=== PATIENT | female | born 1970 | race Caucasian/White ===

== ENCOUNTER 2018-02-10 00:30 | Observation (INO) | payer MEDICAID, SELFPAY ==
[2018-02-10] VITALS (12 sets, daily range): BP systolic 105–137; BP diastolic 58–91; PULSE 73–90; RESP 16–20; TEMP 36.1–37; O2SAT 94–99
--- NOTE | 2018-02-10 00:52 | ED.GENADUL_ITS ---
Discharge Plan Disposition Patient Disposition: [facility] INPATIENT Condition: Good Discharge Details Chief Complaint: Chest/Rib Clinical Impression: Abnormal EKG, Right-sided chest wall pain Primary Care Provider: Benito Mcknight ED Provider: Jerome Jimenez [place] Meds and New Rx's Prescriptions: No Action levonorgestrel [Mirena] 1 EACH intrauterine device 1 ea Intrauterine DIRECTED RF: 0 ibuprofen 200 MG capsule 800 mg PO Q4H PRN RF: 0 gabapentin 300 MG capsule 600 mg PO TID RF: 0 gabapentin 300 MG capsule 300 mg PO TID Qty: 90 RF: 3 venlafaxine [Effexor XR] 75 MG capsule,extended release 24hr 75 mg PO DAILY RF: 0 Medical Decision Making Patient with right sided lateral rib pain with increase cough and feeling of shortness of breath. She has Mirena so cannot PERC out. Was going to get d- dimer and chest x-ray as pain is extremely atypical for cardiac disease. However, EKG was obtained since female and smoker and EKG is abnormal. She has biphasic T waves present with depression at take off of ST segment. May be related to electrolytes as patient is drinker. Doubt ischemia but needs troponin and work up. Will also get CTA chest because of EKG changes but doubt PE. Patient is given aspirin. Labs are for the most part unremarkable. Electrolytes are good, sodium a little low as well as bicarb and a small anion gap. Probably related to alcohol ketoacidosis. Potassium and magnesium is normal. CBC is normal. LFTs good. Troponin is negative. Alcohol is 250. CTA of chest is negative except for evidence of PE. There is reflux of contrast into the inferior vena cava suggesting right heart strain/pulmonary hypertension. Some evidence of emphysema changes as well. Work up so far unremarkable but with EKG changes needs admission for serial troponin. If negative can consider discharge and follow up next week for ECHO and stress testing. Case discussed with hospitalist, Dr. Mcknight, who agrees with observation admit. Lab Data Lab results reviewed: Yes I reviewed the patient's lab results. ECG Data Attestation: I personally reviewed and interpreted this ECG (s) as follows: Prior ECG tracings: available for review Interpretation: NSR at 77 with normal interval and axis but with biphasic T waves anterior-lateral with initial ST depression. V2 with one box of ST elevation. This is different from EKG done a year ago which was normal. Repeat EKG to confirm tonight was same as initial. HPI General Mode of arrival: EMS . Date/Time Provider Initiated Documentation: 02/10/18 00:49 . Limitations to Documentation: no limitations . Information obtained by: patient . HPI Narrative: Patient presents to ED with complaint of right rib pain for the last week. No known trauma. No rash. She has had increase cough and increase SOB. Pain is worse with breathing and with lying down. She has no fever. She has no abdominal pain or GI symptoms. She does smoke cigarettes and drinks alcohol daily. She has no urinary symptoms. She has no history of DVT/PE and has no leg swelling. Has chronic neuropathic leg/foot pain which is unchanged. She thinks she might have pneumonia. Related Data Home Medications Medication Instructions Recorded Confirmed levonorgestrel [Mirena] 1 ea INTRAUTERINE DIRECTED 10/01/12 02/10/18 venlafaxine [Effexor Xr] 75 mg PO DAILY 01/30/17 02/10/18 ibuprofen 800 mg PO Q4H PRN tab-cap 06/22/17 02/10/18 gabapentin 300 mg PO TID #90 tab-cap 10/02/17 02/10/18 gabapentin 600 mg PO TID tab-cap 10/02/17 02/10/18 Previous Rx's Medication Instructions Recorded gabapentin 300 mg PO TID #90 tab-cap 10/02/17 Allergies Allergy/AdvReac Type Severity Reaction Status Date / Time No Known Allergies Allergy Unverified 02/10/18 00:41 General Stated Complaint: Chest/Rib ANGELITA: 3 Review of Systems Constitutional Denies chills, Denies fever(s), Denies headache(s) and Denies weakness Eyes Denies eye discharge and Denies irritation ENT Denies otalgia, Denies headache(s), Denies neck pain and Denies sore throat Cardiovascular Reports chest pain (right lateral rib pain), Denies syncope, Denies edema, Denies palpitations and Reports dyspnea Respiratory Denies change in phlegm color, Reports cough, Denies hemoptysis, Reports pain on inspiration and Reports dyspnea Gastrointestinal Denies abdominal pain, Denies diarrhea, Denies nausea and Denies vomiting Genitourinary Denies hematuria and Denies dysuria Musculoskeletal Denies back pain, Denies myalgias, Denies arthralgias, Denies neck pain and Denies numbness Integumentary/Breasts Denies rash and Denies sores Neurologic Denies syncope, Denies headache(s), Denies focal weakness, Denies numbness and Denies weakness Endocrine Denies palpitations PFSH Family History Mother Diabetes Osteoporosis Hyperlipidemia Medical History Anxiety Bilateral calcaneal fractures Closed left hip fracture Depression History of ETOH abuse Menorrhagia Social History Smoking/Tobacco Use Status: Current every day alcohol intake: current Surgical History section Ligation of fallopian tube Exam Const General: cooperative, comfortable and no acute distress Orientation: alert and oriented x3 HENMT Head: normocephalic and atraumatic Mouth: moist mucous membranes Neck Neck: normal visual inspection, trachea midline and supple Chest Chest: tenderness rib (right lateral lower rib area) Resp Effort & Inspection: normal respiratory effort Auscultation: rhonchi (few) right lower Cardio Rate: regular rate Rhythm: regular rhythm Heart Sounds: S1 normal and S2 normal Pulses: normal peripheral pulses GI Palpation: soft, not firm, no guarding and nontender Back/Spine/Pelvis Back: no CVA tenderness Skin General skin exam: no rashes or lesions noted Neuro General: alert, oriented x3, no focal motor deficits and CN's II-XI intact bilaterally Extrem General: normal to inspection, full ROM, no clubbing, cyanosis or edema and no calf tenderness Course Vital Signs Temperature 97.7 F 02/10/18 00:36 Pulse 88 02/10/18 00:36 Respiratory Rate 16 02/10/18 00:36 Blood Pressure 126/91 H 02/10/18 00:36 Pulse Oximetry 98 02/10/18 00:36 Temperature 97.7 F 02/10/18 00:36 Pulse 88 02/10/18 00:36 Respiratory Rate 16 02/10/18 00:36 Respiratory Effort Non-Labored 02/10/18 00:46 Blood Pressure 126/91 H 02/10/18 00:36 Blood Pressure Position Sitting 02/10/18 00:36 Pulse Oximetry 98 02/10/18 00:36 Oxygen Delivery Method Room Air 02/10/18 00:36 Oxygen Flow Rate 0 02/10/18 00:36 Pain Level 9 02/10/18 00:46
--- NOTE | 2018-02-10 01:27 | DI.CT_ITS ---
SYMPTOMS/DIAGNOSIS: RIGHT-SIDED PLEURITIC CHEST PAIN WITH EKG CHANGES CHEST CT FOR PULMONARY EMBOLISM: CT angiography was performed with multi slice acquisition and multi planar and 3D reconstruction. Comparison is made with January,. There are mild emphysematous changes at the lung apices. No pulmonary emboli, infiltrate or effusion is seen. There is no evidence of aortic dissection. There is some prominence of the pulmonary arteries, which could indicate pulmonary hypertension. There is a stable compression fracture of T12. The visualized portions of the upper abdomen are unremarkable. IMPRESSION: No evidence of pulmonary emboli or other acute abnormality. There are findings to suggest pulmonary hypertension.
[2018-02-10] MEDS: Aspirin 81 MG CHEW 324 MG CH (01:29)
[2018-02-10] MEDS: Normal Saline Flush 10 ML SYR IVP ×2 (01:34→03:43)
[2018-02-10] MEDS: Normal Saline 1,000 ML 150 ML IV (01:34)
[2018-02-10 01:38] LABS: Abs Immature Grans 0.04 k/cumm (0.0-0.09); Absolute Basophil Count 0.05 k/cumm (0.0-0.2); Absolute Eosinophil Count 0.26 k/cumm (0.0-0.7); Absolute Monocyte Count 0.92 k/cumm (0.11-0.7); Absolute Neutrophil Count 3.17 k/cumm (1.2-6.7); Basophils % 0.7; Eosinophils % 3.5; HCT 40.2 % (36.0-46.0); Immature Grans % 0.5; Lymphocytes % 39.5; Mean Corp. HGB Concentration 34.8 g/dL (32.0-36.0); Mean Corpuscular Hemoglobin 33.5 pg (27.0-33.0); Mean Corpuscular Volume 96.2 fL (80-95); Mean Platelet Volume 9.3 fL (8.0-11.0); Monocytes % 12.5; Neutrophils % 43.3; Platelet Count 272 x1000/uL (130-400); RBC 4.18 m/cumm (4.00-5.20); RBC Distribution Width 12.9 % (11.7-14.6); White Blood Cell Count 7.34 k/cumm (4.4-10.8)
[2018-02-10 01:52] LABS: ALT 31 U/L (12-78); AST 19 U/L (15-37); Alkaline Phosphatase 131 U/L (46-116); Anion Gap 13.9 mmol/L (3-11); BUN 10 mg/dL (7-18); Bilirubin, Total 0.1 mg/dL (0.2-1.0); CO2 19.1 mmol/L (21.0-32.0); CREATININE 0.72 mg/dL (0.55-1.02); Calcium 8.8 mg/dL (8.5-10.1); Chloride 99 mmol/L (98-107); Glucose 103 mg/dL (70-100); Magnesium 2.1 mg/dL (1.8-2.4); Sodium 132 mmol/L (136-145); Total Protein 8.1 g/dL (6.4-8.2)
[2018-02-10 01:55] LABS: Troponin I < 0.02 ng/mL (0.00-0.06)
[2018-02-10] MEDS: Omnipaque 350 MG/ML 100 ML BTL IJ (02:26)
[2018-02-10 02:57] LABS: ETHANOL BLOOD 247.2 mg/dL (<3)
--- NOTE | 2018-02-10 03:18 | DI.VRAD_ITS ---
EXAM: CT Angiography Chest With Intravenous Contrast EXAM DATE/TIME: 02/10/2018 1:29 AM CLINICAL HISTORY: 47 years old, female; Pain; Pleuordynia TECHNIQUE: Axial computed tomographic angiography images of the chest with intravenous contrast using CT angiography protocol. Coronal and sagittal reformatted images were created and reviewed. MIP reconstructed images were created and reviewed. COMPARISON: CR CHEST 2 VIEWS PA,LAT 08/09/2016 7:40 PM FINDINGS: Pulmonary arteries: The pulmonary arteries are normal in caliber. There is reflux of contrast within the inferior vena cava and hepatic veins consistent with elevated right-sided cardiac pressures. Consider pulmonary hypertension. No evidence of acute pulmonary embolism. Aorta: Normal. No aortic aneurysm. No aortic dissection. Great vessels off aortic arch: The aorta great vessels are normal without evidence of aneurysmal dilatation, dissection or occlusive disease. Inferior vena cava: There is reflux of contrast within the inferior vena cava and hepatic veins consistent with elevated right-sided cardiac pressures. Lungs: Mild paraseptal and centrilobular emphysematous changes present. There is no evidence of focal pulmonary consolidation. No evidence of pulmonary parenchymal inflammatory changes. No other evidence of active cardiopulmonary disease . Pleural space: There is no evidence of pneumothorax. There are no pleural effusions present. Heart: There is reflux of contrast within the inferior vena cava and hepatic veins consistent with elevated right-sided cardiac pressures. This may reflect right heart strain. The cardiac structures are otherwise normal. Mediastinum: The mediastinal structures are normal. Bones/joints: There is a compression fracture of T12. This was described in 2017 and there is sclerosis consistent with chronicity. The spine, sternum, ribs, and pectoral girdles otherwise show no evidence of acute abnormality. Soft tissues: Unremarkable. Lymph nodes: There is no evidence of lymphadenopathy. Upper abdomen: The upper abdominal viscera are unremarkable. Intraperitoneal space: There are no soft tissue masses or fluid collections. Other findings: There is no evidence of pulmonary masses. IMPRESSION: 1. Mild paraseptal and centrilobular emphysematous changes present. 2. There is reflux of contrast within the inferior vena cava and hepatic veins consistent with elevated right-sided cardiac pressures. This may reflect right heart strain. Consider pulmonary hypertension. 3. No evidence of acute pulmonary embolism. 4. No other evidence of active cardiopulmonary disease . 5. There is a compression fracture of T12. This was described in 2017 and there is sclerosis consistent with chronicity. Dictated and Authenticated by: Amilcar Cochran MD. Ordering:LEELEE LIRA MD
[2018-02-10] MEDS: Ketorolac 15 MG/ML VIAL IVP (03:42)
[2018-02-10 05:37] LABS: Troponin I < 0.02 ng/mL (0.00-0.06)
--- NOTE | 2018-02-10 06:23 | W.PM.HP.N ---
Date of service: 02/10/18 Time of Service: 06:23 Assessment and Plan (1) Chest pain: Current visit: Yes Status: Acute Chest pain. By exam this is very clearly musculoskeletal. What was initially described as a worsening of the pain with recumbency might suggest the possibility of pericarditis, which could certainly correlate with the abnormal EKG. However, again, I think the exam is convincing and I do not believe that pericarditis would be considered likely here. There is also the finding suggesting elevated pulmonary artery pressures and I think the EKG changes may be more related to this. Regardless, the patient is ruled out. I think a cardiac ultrasound would be the next step, both to rule out any consideration of pericarditis and to further investigate the concerns about pulmonary hypertension. In the interim a trial dose of NSAIDs for the pain would be reasonable History of Present Illness Chief Complaint: chest pain Narrative: 47-year-old female with history of depression and smoking. She comes in with 1week right posterolateral thoracic pain. The pain is described as sharp and is worse with direct pressure or with laying down. Note that the laying down factor is only operative if this involves direct pressure and for example she can induce the same problem by sitting in a chair and leaning back hard into the back.. There has been no injury or trauma. She does have an occasional cough related to her smoking but does not report any change in this regard. There is been no calf swelling or tenderness. In the emergency room initial workup of note for EKG showing diffuse biphasic T waves, a finding that is new since 2017. CT angiogram was obtained which was negative for pulmonary embolism. Additional findings of emphysematous changes and reflux of contrast into IVC suggestive of possible pulmonary hypertension. She was admitted for further evaluation and management. Review of Systems Review of Systems All systems reviewed & are unremarkable except as noted in HPI and below PFSH Family History Mother Diabetes Osteoporosis Hyperlipidemia Medical History Anxiety Bilateral calcaneal fractures Closed left hip fracture Depression History of ETOH abuse Menorrhagia Social History Smoking/Tobacco Use Status: Current every day alcohol intake: current Surgical History section Ligation of fallopian tube Meds Home Medications Medication Instructions Recorded Confirmed Type levonorgestrel [Mirena] 1 ea INTRAUTERINE DIRECTED 10/01/12 02/10/18 History venlafaxine [Effexor Xr] 75 mg PO DAILY 01/30/17 02/10/18 History ibuprofen 800 mg PO Q4H PRN tab-cap 06/22/17 02/10/18 History gabapentin 300 mg PO TID #90 tab-cap 10/02/17 02/10/18 Rx gabapentin 600 mg PO TID tab-cap 10/02/17 02/10/18 History Allergies Allergy/AdvReac Type Severity Reaction Status Date / Time No Known Allergies Allergy Unverified 02/10/18 00:41 Exam Narrative Exam Narrative: Blood pressure 114/69 pulse 75 respiration 16 temp 36.1 O2 sat 99% on room air. HEENT shows no signs of head trauma. Neck is supple. There is no JVD. Lungs are clear heart shows normal PMI, no RV heave and regular rate and rhythm without murmurs rubs or gallops exam of the chest wall shows patient is tender in the right posterolateral thorax at approximately the level of rib 8. No bony step-off is noted. Abdomen is soft and nontender without hepatosplenomegaly and there is no hepatojugular reflux elicited. Rectal exams are deferred extremities there is no edema, pulses are 2+ and equal and there is no calf tenderness or swelling. Homans sign is negative. Neurological exam is nonfocal White count is 7.3 hematocrit 40 platelet 272. Sodium 132 potassium 4.0 chloride 99 bicarb 19.1 BUN 10 creatinine 0.7 troponin I 2 and 3 are all negative alcohol 247 CT angiogram negative for PE, other findings as described in history of present illness. EKG shows sinus rhythm with diffuse biphasic T waves Results Labs : 02/10/18 01:15 02/10/18 01:15 Laboratory Results - last 24 hr 02/10/18 02/10/18 02/10/18 01:15 01:15 01:15 WBC 7.34 RBC 4.18 Hgb 14.0 Hct 40.2 MCV 96.2 H MCH 33.5 H MCHC 34.8 RDW 12.9 Plt Count 272 MPV 9.3 Immature Gran % 0.5 Neutrophils % 43.3 Lymphocytes % 39.5 Monocytes % 12.5 Eosinophils % 3.5 Basophils % 0.7 Absolute Neutrophils 3.17 Absolute Lymphocytes 2.90 Absolute Monocytes 0.92 H Absolute Eosinophils 0.26 Absolute Basophils 0.05 D-Dimer Cancelled Sodium 132 L Potassium 4.0 Chloride 99 Carbon Dioxide 19.1 L Anion Gap 13.9 H BUN 10 Creatinine 0.72 Estimated GFR/1.73 m2 >= 60.00 Glucose 103 H Calcium 8.8 Magnesium 2.1 Total Bilirubin 0.1 L AST 19 ALT 31 Alkaline Phosphatase 131 H Troponin I < 0.02 Total Protein 8.1 Albumin 4.0 Ethyl Alcohol 02/10/18 02/10/18 01:15 05:15 WBC RBC Hgb Hct MCV MCH MCHC RDW Plt Count MPV Immature Gran % Neutrophils % Lymphocytes % Monocytes % Eosinophils % Basophils % Absolute Neutrophils Absolute Lymphocytes Absolute Monocytes Absolute Eosinophils Absolute Basophils D-Dimer Sodium Potassium Chloride Carbon Dioxide Anion Gap BUN Creatinine Estimated GFR/1.73 m2 Glucose Calcium Magnesium Total Bilirubin AST ALT Alkaline Phosphatase Troponin I < 0.02 Total Protein Albumin Ethyl Alcohol 247.2 Last Vital Signs Temp 36.1 C L 02/10/18 05:04 Pulse 75 02/10/18 05:04 Resp 16 02/10/18 05:04 BP 114/69 02/10/18 05:04 Pulse Ox 99 02/10/18 05:04
--- NOTE | 2018-02-10 07:02 | PDOC.CMIN ---
- If Service Date Differs Date of service: 02/10/18 Time of Service: 07:02 Care Management Initial Assess REASON FOR HOSPITALIZATION:: EKG changes, right side chest wall pain. PAST MEDICAL HISTORY/PAST SURGICAL HISTORY:: Anxiety, bilateral calcaneal fractures, closed left hip fracture, depression, hx of ETOH abuse, menorrhagia. Surgical hx: section x3, ligation of fallopian tube. PREVIOUS FUNCTIONAL STATUS/SOCIAL/FAMILY SUPPORTS:: Carissa lives alone in [facility]. She has three adult children. Carissa does not work and reports that she relies on [employer] and friends for transportation. She is independent with her ADLs. CURRENT FUNCTIONAL STATUS:: Carissa is lying in bed when CM visits this morning. She is reserved in answering questions and conversation. Carissa denies chest pain and pressure and appears to be in no acute distress. She reports that she does not work or drive, however is independent with her ADLs. ADVANCE DIRECTIVES:: None on file at [facility]. Has patient been provided with information about the portal?: Yes Did the patient sign up for the portal?: No CODE STATUS:: Full Code INSURANCE COVERAGE / FINANCIAL ISSUES:: Medicaid. CURRENT HOME/COMMUNITY SERVICES/EQUIPMENT:: No current home or community services. PRIMARY CARE PHYSICIAN:: Benito Mcknight. POTENTIAL DISCHARGE NEEDS:: Follow up appointment with PCP. PATIENT/FAMILY EDUCATION NEEDS:: Discharge education, any limitations, and follow up plan of care. Ask Me Three discussion. ANTICIPATED BARRIERS TO DISCHARGE:: No anticipated barriers to discharge. TRANSPORTATION:: Carissa will transport via [facility] or with a friend via private vehicle. TBD at time of discharge. PLAN:: Carissa will discharge when medically ready per MD. Anticipate patient will discharge with no services and follow up with her PCP. CM will continue to offer support to patient and care team regarding discharge planning and disposition.
--- NOTE | 2018-02-10 07:06 | INITIAL_ITS ---
- If Service Date Differs Date of service: 02/10/18 Time of Service: 07:02 Care Management Initial Assess REASON FOR HOSPITALIZATION:: EKG changes, right side chest wall pain. PAST MEDICAL HISTORY/PAST SURGICAL HISTORY:: Anxiety, bilateral calcaneal fractures, closed left hip fracture, depression, hx of ETOH abuse, menorrhagia. Surgical hx: section x3, ligation of fallopian tube. PREVIOUS FUNCTIONAL STATUS/SOCIAL/FAMILY SUPPORTS:: Carissa lives alone in [facility]. She has three adult children. Carissa does not work and reports that she relies on [employer] and friends for transportation. She is independent with her ADLs. CURRENT FUNCTIONAL STATUS:: Carissa is lying in bed when CM visits this morning. She is reserved in answering questions and conversation. Carissa denies chest pain and pressure and appears to be in no acute distress. She reports that she does not work or drive, however is independent with her ADLs. ADVANCE DIRECTIVES:: None on file at [facility]. Has patient been provided with information about the portal?: Yes Did the patient sign up for the portal?: No CODE STATUS:: Full Code INSURANCE COVERAGE / FINANCIAL ISSUES:: Medicaid. CURRENT HOME/COMMUNITY SERVICES/EQUIPMENT:: No current home or community services. PRIMARY CARE PHYSICIAN:: Benito Mcknight. POTENTIAL DISCHARGE NEEDS:: Follow up appointment with PCP. PATIENT/FAMILY EDUCATION NEEDS:: Discharge education, any limitations, and follow up plan of care. Ask Me Three discussion. ANTICIPATED BARRIERS TO DISCHARGE:: No anticipated barriers to discharge. TRANSPORTATION:: Carissa will transport via [facility] or with a friend via private vehicle. TBD at time of discharge. PLAN:: Carissa will discharge when medically ready per MD. Anticipate patient will discharge with no services and follow up with her PCP. CM will continue to offer support to patient and care team regarding discharge planning and disposition.
[2018-02-10 09:37] LABS: Troponin I < 0.02 ng/mL (0.00-0.06)
[2018-02-10] MEDS: Ibuprofen 800 MG TAB PO (09:44)
[2018-02-10] MEDS: Venlafaxine 37.5 MG CAPCR 75 MG PO (09:44)
[2018-02-10] MEDS: Lidocaine 5% Patch 1 PATCH TP (11:24)
--- NOTE | 2018-02-10 15:54 | W.PM.DS.N ---
Date of service: 02/10/18 Time of Service: 15:54 DS: Diagnosis Discharge Diagnosis (1) Radiculopathy: Status: Acute (2) Muscle spasm: Status: Acute (3) Tobacco abuse: Status: Chronic (4) Acute electrocardiogram changes: Status: Acute (5) T12 compression fracture: Status: Chronic (6) Pulmonary hypertension: Status: Acute Discharge Plan Disposition Patient Disposition: HOME Condition: Good Discharge Details Reason For Visit: EKG CHANGES, RIGHT SIDE CHEST WALL PAIN Admit Date/Time: 02/10/18 03:33 Admit Provider: Benito Mcknight Attending Provider: Benito Mcknight Primary Care Provider: Benito Mcknight Hospital Course Hospital Course: Ms Anguiano is a 47 year old female with PMHx of chronic neuropathic pain, depression, alcohol abuse and smoking who was observed at [facility] for posterior chest wall pain as well as EKG changes. She had 3 negative sets of troponins, her CTA of the chest was negative for an acute PE/any acute pathology and her EKG, which initially showed byphasic T waves in every lead, normalized by the morning. There was no evidence of QTc prolongation. The CTA of the chest does reveal emphysematous changes as well as reflux of contrast within the inferior vena cava/hepatic veins, suggesting pulmonary hypertension. The patient's pain improved with lidocaine patch application. She now describes the pain in a radicular pattern, circumscribing the right side of her thorax. The CTA shows a chronic T12 compression fracture in about the same distribution. The patient would like to undergo her ischemic workup as an outpatient and promises to return to the hospital with any cardiac symptoms. She is being discharged home with muscle relaxants, ibuprofen, lidocaine patches. She did have an elevated alcohol level here and is being instructed to abstain from alcohol on discharge and to return to the hospital with any signs of withdrawal. She was also counselled on quitting smoking, but is not ready to do that yet. Home Meds and New Rx's Prescriptions: New carisoprodol [Soma] 250 mg tablet 250 mg PO QID PRN (Reason: muscle pain) Qty: 30 RF: 0 omeprazole 40 mg capsule,delayed release(DR/EC) 40 mg PO DAILY Qty: 30 RF: 0 thiamine mononitrate (vit B1) 100 mg tablet 100 mg PO DAILY Qty: 30 RF: 0 multivitamin tablet 1 tab PO DAILY Qty: 30 RF: 0 ibuprofen 800 mg tablet 800 mg PO TID Qty: 30 RF: 0 lidocaine [Lidoderm] 5 % adhesive patch,medicated 1 - 2 patch TP DAILY Qty: 30 RF: 0 folic acid 1 mg tablet 1 mg PO DAILY Qty: 30 RF: 0 Continue levonorgestrel [Mirena] 1 EACH intrauterine device 1 ea Intrauterine DIRECTED RF: 0 venlafaxine [Effexor XR] 75 MG capsule,extended release 24hr 75 mg PO DAILY RF: 0 Discontinued ibuprofen 200 MG capsule 800 mg PO Q4H PRN RF: 0 Discharge Instructions Instructions: Transthoracic Echocardiogram (DC), Pharmacologic Stress Testing (DC), Pulmonary Arterial Hypertension (DC), Back Pain (GEN) Additional Instructions: Return to the hospital with any fever, bleeding, chest pain, shortness of breath, or worsening cough. Use your incentive spirometer 10 times an hour while awake. You cannot drink and take your medications - you could ! You must follow up with your PCP as well as for an echocardiogram and outpatient stress test Stand Alone Forms: Nursing Discharge Form Referrals: Benito Mcknight MD [Primary Care Provider] - (3-5 days) Activity:: You cannot drive or operate heavy machinery. Do not perform any strenuous tasks Equipment/Supplies:: No Equipment Needed Diet:: Low Sodium Discharge Orders Discharge Orders: Discharge Order (Routine); Ordered 02/10/18 Ordered By: Angella Torres Other Ambulatory Orders: US echocardiogram (Routine) Timeframe: 1 Week Facility: [facility] - Location: CARDIAC LAB Ordered By: Angella Torres Nuclear Medicine Stress Test (Outpt) (ONCE) (1) Timeframe: 3 Days Facility: [facility] - Location: CARDIAC LAB Ordered By: Angella Torres Exam Narrative Exam Narrative: General: Very pleasant female, anxious, sitting comfortably in bed HEENT: EOMI, MMM Cardiovascular: RRR, no m/r/g Lungs: CTAB Genitourinary: abdomen soft, nontender, nondistended Extremities: no e/c/c BLE's Back: muscle enderness along the path of a lower thoracic nerve on the R, reproducible with palpation DS: Data Vitals/I&O Vitals and I&O: Vital Signs Temperature 36.6 C 02/10/18 12:59 Temperature Source Tympanic 02/10/18 12:59 Pulse 73 02/10/18 12:59 Pulse Rhythm Regular 02/10/18 08:40 Pulse 80 02/10/18 03:03 Respiratory Rate 17 02/10/18 12:59 Respiratory Effort 02/10/18 08:40 Respiratory Depth Normal 02/10/18 08:40 Respiratory Pattern Normal 02/10/18 08:40 Blood Pressure 137/78 02/10/18 12:59 Blood Pressure Mean 69 02/10/18 03:03 Blood Pressure Position Sitting 02/10/18 00:36 Pulse Oximetry 96 02/10/18 12:59 Oxygen Delivery Method Room Air 02/10/18 12:59 Oxygen Flow Rate 0 02/10/18 12:59 Pain Level 5 02/10/18 10:08 Intake & Output 02/09/18 02/10/18 02/10/18 23:59 11:59 23:59 Intake Total 970 / 970 Balance 970 / 970 Weight 66.3 kg Intake: IV 660 / 660 Oral 310 / 310 Completed studies during hospitalization [Text1]: CTA chest: 1. Mild paraseptal and centrilobular emphysematous changes present. 2. There is reflux of contrast within the inferior vena cava and hepatic veins consistent with elevated right-sided cardiac pressures. This may reflect right heart strain. Consider pulmonary hypertension. 3. No evidence of acute pulmonary embolism. 4. No other evidence of active cardiopulmonary disease . 5. There is a compression fracture of T12. This was described in 2017 and there is sclerosis consistent with chronicity. Labs on day of discharge: Labs from last 24 hours 02/10/18 02/10/18 02/10/18 09:15 05:15 01:15 WBC RBC Hgb Hct MCV MCH MCHC RDW Plt Count MPV Immature Gran % Neutrophils % Lymphocytes % Monocytes % Eosinophils % Basophils % Absolute Neutrophils Absolute Lymphocytes Absolute Monocytes Absolute Eosinophils Absolute Basophils D-Dimer Sodium Potassium Chloride Carbon Dioxide Anion Gap BUN Creatinine Estimated GFR/1.73 m2 Glucose Calcium Magnesium Total Bilirubin AST ALT Alkaline Phosphatase Troponin I < 0.02 < 0.02 Total Protein Albumin Ethyl Alcohol 247.2 02/10/18 02/10/18 02/10/18 01:15 01:15 01:15 WBC 7.34 RBC 4.18 Hgb 14.0 Hct 40.2 MCV 96.2 H MCH 33.5 H MCHC 34.8 RDW 12.9 Plt Count 272 MPV 9.3 Immature Gran % 0.5 Neutrophils % 43.3 Lymphocytes % 39.5 Monocytes % 12.5 Eosinophils % 3.5 Basophils % 0.7 Absolute Neutrophils 3.17 Absolute Lymphocytes 2.90 Absolute Monocytes 0.92 H Absolute Eosinophils 0.26 Absolute Basophils 0.05 D-Dimer Cancelled Sodium 132 L Potassium 4.0 Chloride 99 Carbon Dioxide 19.1 L Anion Gap 13.9 H BUN 10 Creatinine 0.72 Estimated GFR/1.73 m2 >= 60.00 Glucose 103 H Calcium 8.8 Magnesium 2.1 Total Bilirubin 0.1 L AST 19 ALT 31 Alkaline Phosphatase 131 H Troponin I < 0.02 Total Protein 8.1 Albumin 4.0 Ethyl Alcohol
--- NOTE | 2018-02-10 16:09 | PDOC.CMDIS ---
- If Service Date Differs Date of service: 02/10/18 Time of Service: 16:09 LACE Index Scoring Tool - Questions: Length of Stay (in days): 1 Acuity (Admit via E.D.?): Yes E.D. Visits: 1 - Answers: Total Score: 5 Risk of Readmission: Low Risk Care Management Discharge Reason for Hospitalization: EKG changes, right side chest wall pain. Discharge Plan: Carissa will discharge home when medically ready per MD. Anticipate patient will discharge with no services and follow up with PCP. Carissa should have an outpatient stress test and Echo. Patient/Family Education Needs: Discharge education, any limitations, and follow up plan of care. Ask Me Three discussion.
== END 2018-02-10 17:24 | disposition home or self-care (01) ==
LOC: ER 03:39 → MS 16:08
PROVIDERS: Admitting Provider General Practice; Emergency Provider Emergency Medicine; PCP General Practice; Visit Provider Internal Medicine
DX: R94.31 Abnormal electrocardiogram [ECG] [EKG]; R07.89 Other chest pain; M54.14 Radiculopathy, thoracic region; M48.54XA Collapsed vertebra, not elsewhere classified, thoracic region, initial encounter for fracture; M62.838 Other muscle spasm; F17.210 Nicotine dependence, cigarettes, uncomplicated; F10.10 Alcohol abuse, uncomplicated; I27.20 Pulmonary hypertension, unspecified; F32.9 Major depressive disorder, single episode, unspecified
CPT/HCPCS: 36415; 71275; 80053; 81025; 93005; 96361; 96374; 99217; 99222; 99285; 80320; 83735; 84484; 85025; 85379; 93010; 99236; G0378; J1885; J3490

== ENCOUNTER 2018-02-22 11:30 | Outpatient (REF) | payer MEDICAID, SELFPAY ==
--- NOTE | 2018-02-22 11:00 | PAPFT_PTH ---
PATIENT: Carissa Anguiano LOC: [facility] U#:[id number] AGE/SX: 47/F ROOM: RE02/22/[address]: SANTA Zuniga : 1970 BED: DIS: 02/22/2018 SPEC #: [id number] RECD: 02/22/18 18:05 STATUS: ASHLEY REQ #: [id number] SOHAIL: 02/22/18 11:[address]: Rakel Shelton DEPT: [facility] Cytology RECD BY: Gena Hill ENTERED: 02/22/18 18:05 SP TYPE: PAPFT OTHR DR: Benito Mcknight Tissues: 1 - CX/ENDOCX FOR PAP SMEARS Procedures: PAP THIN PREP/UVM Screening HPV DNA PROBE Comments: [id number]
== END 2018-02-22 11:50 ==
LOC: LBN 11:30
PROVIDERS: PCP General Practice; Visit Provider Nurse Practitioner Family
DX: Z12.4 Encounter for screening for malignant neoplasm of cervix (principal); Z11.51 Encounter for screening for human papillomavirus (HPV)
CPT/HCPCS: 88142; 87624

== ENCOUNTER 2018-03-12 00:16 | Outpatient (CLI) | payer MEDICAID, SELFPAY ==
--- NOTE | 2018-03-12 09:30 | MERGEMPI_ITS ---
*[facility]* *[facility]* [address] [place] [address] Myocardial Perfusion Imaging - SPECT Regadenoson Date of study: 03/12/2018 *PATIENT PRESENTATION* Height: 157.5cm (62in) Blood Pressure: Weight: 71.4kg (157lb) BSA: 1.79m^2 Referring physician: Mayco Murcia MD Ordering physician: Benito Mcknight Impressions: - Abnormal study after pharmacologic stress. - Small ischemia; trial med rx reasonable. Summary: 1. Myocardial perfusion imaging: There is a small sized, moderately intense, predominantly reversible defect involving the apical wall(s). This suggests small ischemia in the distribution of the left anterior descending coronary artery. Overall ischemia: small. 2. The calculated left ventricular ejection fraction after stress: 51%. No left ventricular regional motion abnormality. Indication: R94.31. History: REASON FOR TESTING: [facility] WITH EKG CHANGES AND CHEST PAINTHAT APPEARED TO BE MUSCULOSKELETAL PAIN, BUT SUGGESTED THE POSIBILITY OF PERICARDITIS. TREATED WITH IBUPROFEN. PMH: ANXIETY, BILATERAL CLACANEAL FX, CLOSED LEFT HIP FX., DEPRESSION, ETOH ABUSE, MENORRHGIA. FAMILY HX: MOTHER-HYPERLIPIDEMIA. SMOKING: CURRENT DAILY SMOKER. EXCERCISE: NO REGULAR EXCERCISE. PMH: COPD. Risk factors: Family history of coronary artery disease. Current tobacco use. Cholesterol: 179mg/dl. HDL: 59mg/dl. LDL: 93mg/dl. Triglycerides: 101mg/dl. ALLERGIES: NKDA. MEDICATIONS: VENLAFAXINE 75 MG DAILY, VIT B1 100 MG DAILY, OMEPRAZOLE 40 MG DAILY, MULTIVITAMIN 1 DAILY, LIDOCAINE PATCH 1-2 TOPIDAL DAILY, MIRENA IUD DIRECTED, IBUPROFEN 800 MG TID, FOLIC ACID 1 MG DAILY, SOMA 250 MG QID PRN. WEARING A NICOTINE 21 MG PATCH CURRENTLY. Imaging Technique: Protocol: Regadenoson. Acquisition: Gated SPECT; 1 day - rest/stress. The patient was imaged in the supine position. Attenuation correction used. Isotope administration: - Rest. Tc[99m]-sestamibi. Dose: 10.4mCi. Injection time: 09:45 AM. Injection to stress time: 00:45. - Stress. Tc[99m]-sestamibi. Dose: 30.3mCi. Injection time: 11:40 AM. 1-2 min before end of exercise Baseline ECG: LAST EKG 02/10/2018- SINUS RHYTHM, HR 82. TODAY'S EKG=++ Stress protocol: +--------+---+ + + !Stage !HR !BP (mmHg) !Comments ! +--------+---+ + + !Baseline!66 !160/96 (117)! ! +--------+---+ + + !1 min !106!152/86 (108)!Inject Regadenoson.! +--------+---+ + + !3 min !95 !150/82 (105)! ! +--------+---+ + + !6 min !83 !140/86 (104)! ! +--------+---+ + + * Stress results: The rate-pressure product for the peak heart rate and blood pressure was 99626ll Hg/min. Stress ECG: LEXISCAN TESTING ENDED IN 6 MINS, 4 SECS EFFECT OF MEDICATION NO LONGER PRESENT. MAX HR WAS 112, WITH A NORMAL BLOOD PRESSURE RESPONSE. ECTOPY: NONE NOTED. ANGINA: NO REPORTED CHEST PAIN OR PRESSURE. ISCHEMIA: NO ISCHEMIC CHANGES NOTED. Myocardial perfusion: Imaging information: gated. There is a small sized, moderately intense, predominantly reversible defect involving the apical wall(s). This suggests small ischemia in the distribution of the left anterior descending coronary artery. Overall ischemia: small. Ventricular Function (Wall Motion): The calculated left ventricular ejection fraction after stress: 51%. No left ventricular regional motion abnormality. Study data: Mayco Murcia MD supervised and was readily available during the procedure. This study was interpreted by [facility]. Study status: Routine. Consent: The risks, benefits, and alternatives to the procedure were explained to the patient and informed consent was obtained. Procedure: Initial setup. A baseline ECG was recorded. Surface ECG leads and manual cuff blood pressure measurements were monitored. Heart sounds: Normal. Lung sounds: Normal. Regadenoson stress test. Stress testing was performed, with regadenoson by intravenous bolus, for a total dose of 0.4mgover 10.00sec, followed by a 5ml saline flush. The infusion was terminated due to per protocol. The patient was unable to exercise due to deconditioning and or frailty. Study completion: All catheters inserted during the procedure were removed. The patient tolerated the procedure well and was discharged from the lab. Discharge: The patient left the laboratory in stable condition. Birthdate: Patient birthdate: 1970. Sex: Gender: female. Study date: Study date: 03/12/2018. Study time: 12:30 PM. Electronically signed by Mayco Murcia MD 03/12/2018 17:57
[2018-03-12] MEDS: Regadenoson 0.4 MG/5 ML SYR IVP (13:26)
== END 2018-03-12 00:36 ==
PROVIDERS: PCP General Practice; Visit Provider General Practice
DX: R94.31 Abnormal electrocardiogram [ECG] [EKG] (principal); R07.89 Other chest pain; I25.6 Silent myocardial ischemia; F17.200 Nicotine dependence, unspecified, uncomplicated; F41.9 Anxiety disorder, unspecified; Z82.49 Family history of ischemic heart disease and other diseases of the circulatory system; R94.30 Abnormal result of cardiovascular function study, unspecified
CPT/HCPCS: 78452; 93017; J2785

== ENCOUNTER 2018-07-13 11:19 | Outpatient (CLI) | payer MEDICAID, SELFPAY ==
[2018-07-13 11:42] LABS: HCT 41.6 % (36.0-46.0); HGB 14.1 g/dL (12.0-15.5); Mean Corp. HGB Concentration 33.9 g/dL (32.0-36.0); Mean Corpuscular Hemoglobin 31.4 pg (27.0-33.0); Mean Corpuscular Volume 92.7 fL (80-95); Mean Platelet Volume 9.8 fL (8.0-11.0); Platelet Count 312 x1000/uL (130-400); RBC 4.49 m/cumm (4.00-5.20); RBC Distribution Width 13.1 % (11.7-14.6); White Blood Cell Count 7.71 k/cumm (4.4-10.8)
[2018-07-13 12:44] LABS: ALT 27 U/L (12-78); AST 17 U/L (15-37); Alkaline Phosphatase 125 U/L (46-116); Bilirubin, Total 0.4 mg/dL (0.2-1.0); Lipase 198 U/L (73-393)
== END 2018-07-13 11:39 ==
PROVIDERS: PCP General Practice; Visit Provider General Practice
DX: R10.84 Generalized abdominal pain (principal)
CPT/HCPCS: 36415; 83690; 85027; 82247; 84075; 84450; 84460

== ENCOUNTER 2019-01-21 15:14 | Outpatient (CLI) | payer MEDICAID, SELFPAY ==
--- NOTE | 2019-01-21 14:42 | DI.RAD_ITS ---
EXAM: XR FEMUR LT INDICATION: Left femur fracture h/o IMN. COMPARISON: No exams were available for comparison TECHNIQUE: 2D digital imaging was performed. FINDINGS: An intramedullary jamarcus and screw transfixing an old healed proximal left femoral fracture. No evidenc e of hardware failure is seen. No acute fracture or dislocation is present. Deformity of the left s uperior and inferior pubic rami are noted. This may reflect old healed fractures. The soft tissues are unremarkable. IMPRESSION: No acute abnormality.
== END 2019-01-21 15:34 ==
PROVIDERS: PCP General Practice; Visit Provider Student in an Organized Health Care Education/Training Program
DX: M70.62 Trochanteric bursitis, left hip (principal); Z87.81 Personal history of (healed) traumatic fracture
CPT/HCPCS: 73552

== ENCOUNTER 2019-04-15 08:46 | Outpatient (CLI) | payer MEDICAID, SELFPAY | END 2019-04-15 09:06 | PROVIDERS: PCP Nurse Practitioner Family; Visit Provider Internal Medicine Cardiovascular Disease | DX: F17.200 Nicotine dependence, unspecified, uncomplicated (principal); Z01.810 Encounter for preprocedural cardiovascular examination | CPT/HCPCS: 93005; 93010 ==

== ENCOUNTER 2019-05-14 13:20 | Outpatient (REF) | payer MEDICAID, SELFPAY ==
[2019-05-14 19:55] LABS: HCT 42.7 % (36.0-46.0); HGB 14.1 g/dL (12.0-15.5); Mean Corpuscular Hemoglobin 31.5 pg (27.0-33.0); Mean Corpuscular Volume 95.3 fL (80-95); Mean Platelet Volume 10.3 fL (8.0-11.0); Platelet Count 352 x1000/uL (130-400); RBC 4.48 m/cumm (4.00-5.20); RBC Distribution Width 13.7 % (11.7-14.6); White Blood Cell Count 8.36 k/cumm (4.4-10.8)
[2019-05-14 20:03] LABS: ALT 19 U/L (14-59); AST 14 U/L (15-37); Albumin 4.1 g/dL (3.4-5.0); Alkaline Phosphatase 110 U/L (46-116); Anion Gap 8.6 mmol/L (3-11); BUN 20 mg/dL (7-18); Bilirubin, Total 0.1 mg/dL (0.2-1.0); CO2 27.4 mmol/L (21.0-32.0); CREATININE 0.85 mg/dL (0.55-1.02); Calcium 9.4 mg/dL (8.5-10.1); Calculated LDL 119 mg/dL; Chloride 101 mmol/L (98-107); Cholesterol 192 mg/dL (<200); Glucose 95 mg/dL (74-106); HDL Cholesterol 45 mg/dL (40-60); Sodium 137 mmol/L (136-145); Total Protein 7.7 g/dL (6.4-8.2); Triglyceride 141 mg/dL (<150)
== END 2019-05-14 13:40 ==
LOC: NCHCN 13:20
PROVIDERS: PCP Nurse Practitioner Family; Visit Provider Nurse Practitioner Family
DX: Z13.220 Encounter for screening for lipoid disorders (principal); Z13.228 Encounter for screening for other metabolic disorders
CPT/HCPCS: 80053; 80061; 85027

== ENCOUNTER 2019-06-07 08:22 | Day surgery (SDC) | payer MEDICAID, SELFPAY ==
[2019-06-07 08:30] VITALS: BP 114/71; PULSE 79; RESP 16; TEMP 36.2; O2SAT 97
[2019-06-07] MEDS: Lactated Ringers 1,000 ML 80 ML IV (09:14)
--- NOTE | 2019-06-07 09:48 | W.PM.DSUDISC ---
Discharge Plan Disposition Patient Disposition: HOME Condition: Good Discharge Details Reason For Visit: EGD, Colonoscopy Attending Provider: Samia Blanco Primary Care Provider: Mikal Boyce Home Meds and New Rx's Prescriptions: Continued lorazepam [Ativan] 0.5 mg tablet 0.5 mg PO TID PRNRF: 0 Mirena 1 EACH intrauterine device 1 ea Intrauterine DIRECTED RF: 0 venlafaxine [Effexor XR] 75 MG capsule,extended release 24hr 75 mg PO DAILY RF: 0 omeprazole 40 mg capsule,delayed release(DR/EC) 40 mg PO DAILY Qty: 30 RF: 0 Discontinued polyethylene glycol 3350 17 gram/dose powder 238 g PO ONCE Qty: 238 RF: 0 bisacodyl [Dulcolax (bisacodyl)] 5 mg tablet,delayed release (DR/EC) 5 mg PO ONCE Qty: 4 RF: 0 Discharge Instructions Additional Instructions: Findings: A few routine biopsies were done in the stomach. My office will contact you with results. A polyp was found in the colon. Follow up: Depending on the polyp biopsy results, you may need a colonoscopy again in 5 years. We will contact you with recommendations. Please call if you develop: fevers >101.5 Nausea or Vomiting Abdominal pain that is not transient DAY SURGERY UNIT POST COLONOSCOPY INSTRUCTIONS 1. Because there will be medication in your system for the next 24 hours, you may feel a little sleepy. Your coordination will be affected. Therefore: a. Do not drive or operate dangerous equipment for 24 hours. b. Do not drink alcohol beverages for 24 hours (not even beer). c. Plan to go home and rest for the day. 2. Generally there are no restrictions on your activity after a day or so has gone by, but you may feel a bit fatigued for a few days. 3 After you arrive home you may have a light meal and return to a normal diet as you can tolerate it without feeling sick to your stomach. 4. After surgery, you may feel pain or discomfort. This should be only transient, but if it persists please contact your doctor. 5. If there are any questions regarding the findings of your procedure, please feel free to contact your doctor. 6. If you are unable to contact your doctor with a problem, contact the hospital at [phone]. 7. Continue all your regular medications unless directed otherwise. I understand the above instructions and have no questions. Signature of Patient or Responsible Adult Escort Date/Time Name of Responsible Adult Escort Signature of Nurse Date/Time Activity:: Activity as Tolerated Diet:: As Tolerated Discharge Orders Discharge Orders: Discharge Order (Routine); Ordered 06/07/19 Ordered By: Samia Blanco DS: Diagnosis Discharge Diagnosis (1) GERD (gastroesophageal reflux disease): Status: Chronic (2) Diverticulosis: Status: Acute (3) Colon polyp: Status: Acute
--- NOTE | 2019-06-07 10:15 | STOM_PTH ---
PATIENT: Carissa Anguiano LOC: [facility] U#:[id number] AGE/SX: 49/F ROOM: RE06/07/[address]: Samia Balnco MD : 1970 BED: DIS: 06/07/2019 SPEC #: [id number] RECD: 06/07/19 12:54 STATUS: ASHLEY REQ #: [id number] SOHAIL: 06/07/19 10:[address]: Samia Blanco DEPT: Surgical Specimen RECD BY: Gena Hill ENTERED: 06/07/19 12:55 SP TYPE: STOMACH OTHR DR: Mikal Boyce Tissues: 1 - STOMACH BIOPSY 2 - ESOPHAGUS BIOPSY 3 - BIOPSY BOWEL Procedures: GROSS AND MICRO LEVEL 4 Comments: [id number]
[2019-06-07 11:29] VITALS: BP 123/82; PULSE 65; RESP 17; TEMP 36; O2SAT 100
--- NOTE | 2019-06-07 16:27 | ENDO_ITS ---
DATE OF PROCEDURE: June 07, 2019 PREOPERATIVE DIAGNOSIS: 1. Reflux. 2. Colon screening. POSTOPERATIVE DIAGNOSIS: 1. Possible gastric polyp. 2. Possible Nuñez's esophagus. 3. Rectal polyp. PROCEDURES: 1. EGD with gastric and distal esophageal biopsies. 2. Colonoscopy with biopsy. SURGEON: Samia Blanco M.D. ANESTHESIA: General. INDICATIONS: This is a 49-year-old woman who presents for her first screening colonoscopy. She is a symptomatic. She also has a penitentiary history of reflux with an associated cough and hoarseness. The patient is also a smoker. She denies dysphagia. PROCEDURE: She was placed in the left Ruth position. Propofol was titrated to sedation. The scope was advanced into her esophagus under direct visualization and down into the stomach and duodenum. T here was no duodenitis or ulcers noted. In the gastric antrum at the pylorus there was a thick fold versus a gastric polyp. This was biopsied as a precaution. The stomach itself otherwise appeared no rmal, including on retroflex view of the fundus and lesser curvature. The GE junction was carefully inspected. There was no inflammation or strictures. There were two small areas of gastric-appearing epithelium located just proximal to the GE junction. These were fairly small and were biopsied. Th e air was suctioned from the stomach and the scope withdrawn with no other esophageal lesions found. Digital rectal examination revealed no abnormalities. The scope was advanced to the cecum without di fficulty. The ileocecal valve and appendical orifice were clearly identified. The patient was noted to have scattered moscoso diverticulosis. No other abnormalities were seen throughout the ascending, tr ansverse, descending or sigmoid colon. In the rectal area there were several hyperplastic-appearing polyps, the largest of which was biopsied for confirmation. She tolerated the procedure well and was stable to recovery. If the upper endoscopy biopsies do confirm Nuñez's, she will need a follow-up EGD in three years. Assuming the rectal polyps are hyperplastic, she will need a follow-up colonoscopy again in ten years . cc: Teresa Boyce N.P.
== END 2019-06-07 11:48 | disposition home or self-care (01) ==
PROVIDERS: PCP Nurse Practitioner Family; Visit Provider Surgery
PROC: (CPT 45380; principal; 2019-06-07 10:15)
DX: Z12.11 Encounter for screening for malignant neoplasm of colon (principal); K62.5 Hemorrhage of anus and rectum; K57.30 Diverticulosis of large intestine without perforation or abscess without bleeding; K31.7 Polyp of stomach and duodenum; K29.50 Unspecified chronic gastritis without bleeding; K21.0 Gastro-esophageal reflux disease with esophagitis; I27.20 Pulmonary hypertension, unspecified; F17.210 Nicotine dependence, cigarettes, uncomplicated
CPT/HCPCS: 45380; 43239; 81025; 88305; J2001; J2704

== ENCOUNTER 2019-06-29 16:49 | Emergency (ER) | payer MEDICAID, SELFPAY ==
[2019-06-29] VITALS (23 sets, daily range): BP systolic 157–193; BP diastolic 69–132; PULSE 75–107; RESP 12–29; TEMP 36.3–36.9; O2SAT 99–100
[2019-06-29] MEDS: Normal Saline Flush 10 ML SYR IVP (17:17)
[2019-06-29] MEDS: Normal Saline 1,000 ML 1000 ML IV ×2 (17:17→18:12)
[2019-06-29] MEDS: Metoclopramide 10 MG/2 ML VIAL IVP (17:17)
[2019-06-29] MEDS: diphenhydrAMINE 50 MG/ML VIAL (17:17)
[2019-06-29] MEDS: Normal Saline 50 ML 200 ML (17:19)
[2019-06-29 17:28] LABS: Abs Immature Grans 0.06 k/cumm (0.0-0.09); Absolute Basophil Count 0.02 k/cumm (0.0-0.2); Basophils % 0.1; Eosinophils % 0.1; HCT 42.6 % (36.0-46.0); HGB 14.9 g/dL (12.0-15.5); Immature Grans % 0.4 %; Lymphocytes % 9.6; Mean Corpuscular Hemoglobin 31.6 pg (27.0-33.0); Mean Corpuscular Volume 90.3 fL (80-95); Mean Platelet Volume 9.3 fL (8.0-11.0); Monocytes % 6.4; Neutrophils % 83.4; Platelet Count 402 x1000/uL (130-400); RBC 4.72 m/cumm (4.00-5.20); RBC Distribution Width 13.4 % (11.7-14.6); White Blood Cell Count 16.69 k/cumm (4.4-10.8)
[2019-06-29 17:31] LABS: Absolute Eosinophil Count 0.02 k/cumm (0.0-0.7); Absolute Monocyte Count 1.07 k/cumm (0.11-0.7); Absolute Neutrophil Count 13.92 k/cumm (1.2-6.7)
[2019-06-29 17:42] LABS: ALT 17 U/L (14-59); AST 16 U/L (15-37); Albumin 4.3 g/dL (3.4-5.0); Alkaline Phosphatase 134 U/L (46-116); Anion Gap 15.4 mmol/L (3-11); BUN 13 mg/dL (7-18); Bilirubin, Total 0.4 mg/dL (0.2-1.0); CO2 21.6 mmol/L (21.0-32.0); CREATININE 0.89 mg/dL (0.55-1.02); Calcium 9.3 mg/dL (8.5-10.1); Chloride 103 mmol/L (98-107); Glucose 109 mg/dL (74-106); Magnesium 1.7 mg/dL (1.8-2.4); Potassium 4.5 mmol/L (3.5-5.1); Sodium 140 mmol/L (136-145); Total Protein 8.2 g/dL (6.4-8.2)
--- NOTE | 2019-06-29 17:53 | W.ED.GENAD ---
Discharge Plan Disposition Patient Disposition: HOME Condition: Stable Discharge Details Chief Complaint: Nausea/Vomit/Diar Clinical Impression: Leukocytosis (leucocytosis), Nausea & vomiting, Diarrhea Primary Care Provider: Mikal Boyce ED Provider: Bogdan Rob Home Meds and New Rx's Prescriptions: Continued Mirena 1 EACH intrauterine device 1 ea Intrauterine DIRECTED RF: 0 venlafaxine [Effexor XR] 75 MG capsule,extended release 24hr 75 mg PO DAILY RF: 0 omeprazole 40 mg capsule,delayed release(DR/EC) 40 mg PO DAILY Qty: 30 RF: 0 prazosin 1 mg Capsule 1 - 2 mg PO QHS RF: 0 Discharge Instructions Instructions: Acute Diarrhea (ED), Acute Nausea and Vomiting (ED), Leukocytosis (ED) Additional Instructions: Reglan as directed. Clear liquid diet, advance as tolerated. Plenty of fluids to avoid dehydration. [id number] medication for symptomatic control such as Pepto-Bismol or Imodium. Please watch for new or worsening symptoms and return to the ER for any concerns. Medical Decision Making 49-year-old female who reports the diarrhea began yesterday evening, she drank 12 beers, and then developed nausea and vomiting this morning. She is actively dry heaving and appears slightly dehydrated. She appears nontoxic, abdomen is soft, nontender. She is afebrile, slightly hypertensive, and pulse is appropriate at 76. Very well could be gastroenteritis, alcoholic gastritis, pancreatitis, biliary colic. No recent travel or bad food exposure. As above, abdomen is nonsurgical. Will obtain routine laboratory values, give IV fluid, 2 L, IV Reglan and Benadryl and reassess. Laboratory values reveal nonspecific leukocytosis of 16.69, platelets of 402 anion gap of 15.4, glucose of 109, magnesium 1.7 alk phos 134 urine ketones of 40, small blood in urine, red cells 3?5, white cells 10?20. There were a few epithelial cells. Rare bacteria. As above, abdominal examination is nontender, nonsurgical. Leukocytosis very well may be secondary to dry heaving and vomiting, viral syndrome. Upon reassessment patient is dramatically improved. She is now sitting up with out any dry heaving. She was able to tolerate her oral magnesium, Tylenol, water. Blood pressure is trending down nicely. Discussed her laboratory values. She has no urinary symptoms whatsoever. No clear indication for antibiotic therapy, will await urine culture. Patient is now sitting up, requesting discharge, reporting that her friend is coming to pick her up. Provide her with a take-home pack of Reglan as this helped her here in the ER. She received 2 L normal saline. Patient was encouraged to drink plenty of water, clear liquid diet, advance as tolerated. Patient was given return precautions. Encouraged to return to the ER for new or worsening symptoms. Medical Records Medical records reviewed: Yes I reviewed the patient's medical records. Lab Data Lab results reviewed: Yes I reviewed the patient's lab results. Lab results narrative: 06/29/19 18:57 Urine - Reflex from Ua Urine Culture - Pending Laboratory Tests Range/Units 06/29/19 06/29/19 06/29/19 17:10 17:10 18:57 WBC (4.4-10.8) k/cumm 16.69 H RBC (4.00-5.20) m/cumm 4.72 Hgb (12.0-15.5) g/dL 14.9 Hct (36.0-46.0) % 42.6 MCV (80-95) fL 90.3 MCH (27.0-33.0) pg 31.6 MCHC (32.0-36.0) g/dL 35.0 RDW (11.7-14.6) % 13.4 Plt Count (130-400) x1000/uL 402 H MPV (8.0-11.0) fL 9.3 Immature Gran % % 0.4 Neutrophils % 83.4 Lymphocytes % 9.6 Monocytes % 6.4 Eosinophils % 0.1 Basophils % 0.1 Absolute Neutrophils (1.2-6.7) k/cumm 13.92 H Absolute Lymphocytes (1.2-3.4) k/cumm 1.60 Absolute Monocytes (0.11-0.7) k/cumm 1.07 H Absolute Eosinophils (0.0-0.7) k/cumm 0.02 Absolute Basophils (0.0-0.2) k/cumm 0.02 Sodium (136-145) mmol/L 140 Potassium (3.5-5.1) mmol/L 4.5 Chloride (98-107) mmol/L 103 Carbon Dioxide (21.0-32.0) mmol/L 21.6 Anion Gap (3-11) mmol/L 15.4 H BUN (7-18) mg/dL 13 Creatinine (0.55-1.02) mg/dL 0.89 Estimated GFR/1.73 m2 (mL/min/1.73m2) >= 60.00 Glucose (74-106) mg/dL 109 H Calcium (8.5-10.1) mg/dL 9.3 Magnesium (1.8-2.4) mg/dL 1.7 L Total Bilirubin (0.2-1.0) mg/dL 0.4 AST (15-37) U/L 16 ALT (14-59) U/L 17 Alkaline Phosphatase (46-116) U/L 134 H Total Protein (6.4-8.2) g/dL 8.2 Albumin (3.4-5.0) g/dL 4.3 Urine Color (Yellow) Yellow Urine Clarity (Clear) Clear Urine pH (5-8) 6.5 Ur Specific [place] (1.005-1.025) 1.020 Urine Protein (Negative) mg/dL 30 H Urine Ketones (Negative) mg/dL 40 H Urine Blood (Negative) Small H Urine Nitrite (Negative) Negative Urine Bilirubin (Negative) Negative Urine Urobilinogen (Up TO 0.2) EU/dL 0.2 Ur Leukocyte Esterase (Negative) Small H Urine RBC (0-2) HPF 3-5 H Urine WBC (0-5) HPF 10-20 H Ur Epithelial Cells (Negative) HPF Few Urine Crystals (Negative) HPF Negative Urine Bacteria (Negative) HPF Rare Urine Casts (Negative) LPF 3-5 hyaline Urine Mucus (Negative) Trace Ur Culture Indicated? Yes Urine Glucose (Negative) mg/dL Negative HPI General Mode of arrival: EMS. Date/Time Provider Initiated Documentation: 06/29/19 17:01. Limitations to Documentation: no limitations. Information obtained by: patient and EMS. HPI Narrative: 49-year-old female who reports diarrhea that began yesterday, subsequently drank a 12 pack of beer, developed nausea and vomiting this morning. She reports abdominal cramping just prior to her episode of diarrhea otherwise has no pain in her abdomen. Reports fatigue, body aches, mild headache, worse after vomiting. Denies recent travel, sick contacts, bad food exposure. She was given Zofran by EMS but reports that medication has not helped her. She has a history of diverticulosis, GERD, pulmonary hypertension, T12 compression fracture, radiculopathy pain. She is concerned about dehydration as she has not been able to hold anything down since late last night Related Data Home Medications Medication Instructions Recorded Confirmed Mirena 1 ea INTRAUTERINE DIRECTED 10/01/12 06/29/19 venlafaxine [Effexor XR] 75 mg PO DAILY 01/30/17 06/29/19 omeprazole 40 mg PO DAILY #30 cap 02/10/18 06/29/19 prazosin 1 - 2 mg PO QHS 06/29/19 06/29/19 Previous Rx's Medication Instructions Recorded omeprazole 40 mg PO DAILY #30 cap 02/10/18 Allergies Allergy/AdvReac Type Severity Reaction Status Date / Time No Known Allergies Allergy Verified 06/29/19 16:56 General Stated Complaint: Nausea/Vomit/Diar ANGELITA: 3 Review of Systems Constitutional Constitutional: Denies chills, Denies fatigue, Denies fever(s) and Reports headache(s) Eyes Eyes: Denies change in vision ENT Ears, Nose, Mouth, and Throat: Reports headache(s) and Denies sore throat Cardiovascular Cardiovascular: Denies chest pain and Denies dyspnea Respiratory Respiratory: Denies cough and Denies dyspnea Gastrointestinal Gastrointestinal: Reports abdominal pain, Reports diarrhea, Reports nausea and Reports vomiting Genitourinary Genitourinary: Denies dysuria Musculoskeletal Musculoskeletal: Reports myalgias Integumentary/Breasts Skin/Breast: Denies rash Neurologic Neurologic: Reports headache(s) Endocrine Endocrine: Denies fatigue [facility] Medical History Acute electrocardiogram changes (Acute) Anxiety Bilateral calcaneal fractures (Resolved) Chest pain (Acute) Pt. states this is not accurate, pt. states she had pain in side near her ribs, pt. states she was told it was a muscle spasm Closed left hip fracture Depression GERD (gastroesophageal reflux disease) (Chronic) History of ETOH abuse IUD surveillance (Acute 01/13/15) Menorrhagia (Resolved) Muscle spasm (Acute) Pulmonary hypertension (Acute) Radiculopathy (Acute) Status post fracture of femur (Acute) T12 compression fracture (Chronic) Tobacco abuse (Chronic) Trochanteric bursitis, left hip (Acute 10/02/17) Surgical History section x 3 H/O colonoscopy (Chronic ~05/2019) Hyperplastic polyp History of repair of hip fracture (Acute) left femur, heel Ligation of fallopian tube 1989 Family History Mother Diabetes Osteoporosis Hyperlipidemia Social History Smoking/Tobacco Use Status: Current every day Tobacco Type: cigarettes Alcohol Intake: current Alcohol Intake frequency: a few times a week Alcohol type: beer Drug use: Daily Substance use type: marijuana Current gender identity: female Seatbelt use: always Do you feel safe at home: Yes Do you feel safe in your relationship?: Yes Female Reproductive History Menstrual control method: progestin IUCD (Mirena for cycle control / BTL for BC), permanent sterilization and other (G- 5, P- 3 C/Section deliveries) History History 5 Para 3 Hx # Term Pregnancies Multiple births Hx # Pregnancies Ectopic pregnancies AB induced Hx Number of Living Children AB spontaneous Exam Const General: cooperative, healthy appearing and acute distress mild (Dry heaving) Orientation: alert and awake HENWI Head: normal to inspection, normocephalic and atraumatic Mouth: moist mucous membranes abnormal (Dry) Throat: posterior oropharynx normal Eyes Conjunctivae: conjunctivae normal Neck Neck: normal visual inspection, full ROM, no meningeal signs, trachea midline and supple Resp Effort & Inspection: normal respiratory effort and able to speak in complete sentences Auscultation: clear to auscultation bilaterally Cardio Rate: regular rate Rhythm: regular rhythm GI Inspection: normal to inspection Palpation: soft, not firm, no guarding, not rigid and nontender Auscultation: normal bowel sounds Back/Spine/Pelvis Back: No back tenderness Skin General skin exam: no rashes or lesions noted Neuro General: alert, awake, oriented x3, moves all extremities and no focal motor deficits Cranial Nerves: CN's II-XI intact bilaterally Cognition: normal cognition Speech: speech normal Gait: normal gait Motor: muscle tone normal throughout and strength 5/5 throughout Sensory Exam: no sensory deficits noted Extrem General: normal to inspection Psych Appearance: grossly normal Mental Status: mental status grossly normal Course Vital Signs Vital signs: Vital Signs Temperature 36.3 C L 06/29/19 16:52 Pulse 77 06/29/19 16:52 Respiratory Rate 18 06/29/19 16:52 Blood Pressure 173/107 H 06/29/19 16:52 Pulse Oximetry 100 06/29/19 16:52 Temperature 36.3 C L 06/29/19 16:52 Temperature Source Temporal Artery Scan 06/29/19 16:52 Pulse 75 06/29/19 17:31 Pulse 86 06/29/19 17:40 Respiratory Rate 29 H 06/29/19 17:40 Respiratory Effort Non-Labored 06/29/19 16:55 Blood Pressure 172/69 H 06/29/19 17:31 Blood Pressure Mean 92 06/29/19 17:31 Blood Pressure Position Supine 06/29/19 16:52 Pulse Oximetry 100 06/29/19 17:19 Oxygen Delivery Method Room Air 06/29/19 16:52 Oxygen Flow Rate 0 06/29/19 16:52 Pain Level 7 06/29/19 16:52 Lab/Test Results Lab/Test Results: Laboratory Tests Range/Units 06/29/19 06/29/19 17:10 17:10 WBC (4.4-10.8) k/cumm 16.69 H RBC (4.00-5.20) m/cumm 4.72 Hgb (12.0-15.5) g/dL 14.9 Hct (36.0-46.0) % 42.6 MCV (80-95) fL 90.3 MCH (27.0-33.0) pg 31.6 MCHC (32.0-36.0) g/dL 35.0 RDW (11.7-14.6) % 13.4 Plt Count (130-400) x1000/uL 402 H MPV (8.0-11.0) fL 9.3 Immature Gran % % 0.4 Neutrophils % 83.4 Lymphocytes % 9.6 Monocytes % 6.4 Eosinophils % 0.1 Basophils % 0.1 Absolute Neutrophils (1.2-6.7) k/cumm 13.92 H Absolute Lymphocytes (1.2-3.4) k/cumm 1.60 Absolute Monocytes (0.11-0.7) k/cumm 1.07 H Absolute Eosinophils (0.0-0.7) k/cumm 0.02 Absolute Basophils (0.0-0.2) k/cumm 0.02 Sodium (136-145) mmol/L 140 Potassium (3.5-5.1) mmol/L 4.5 Chloride (98-107) mmol/L 103 Carbon Dioxide (21.0-32.0) mmol/L 21.6 Anion Gap (3-11) mmol/L 15.4 H BUN (7-18) mg/dL 13 Creatinine (0.55-1.02) mg/dL 0.89 Estimated GFR/1.73 m2 (mL/min/1.73m2) >= 60.00 Glucose (74-106) mg/dL 109 H Calcium (8.5-10.1) mg/dL 9.3 Magnesium (1.8-2.4) mg/dL 1.7 L Total Bilirubin (0.2-1.0) mg/dL 0.4 AST (15-37) U/L 16 ALT (14-59) U/L 17 Alkaline Phosphatase (46-116) U/L 134 H Total Protein (6.4-8.2) g/dL 8.2 Albumin (3.4-5.0) g/dL 4.3
--- NOTE | 2019-06-29 18:36 | NUR.NOTE ---
Nursing Note: Pt refusing APAP & Magnesium PO at this time, requesting to be allowed to rest. Call ferrer within reach, pt will ring when ready for medications.
[2019-06-29] MEDS: Acetaminophen 500 MG TAB 1000 MG PO (18:56)
[2019-06-29] MEDS: Magnesium Oxide 400 MG TAB 800 MG PO (18:56)
[2019-06-29 18:59] LABS: Bilirubin Negative (Negative); Blood Small (Negative); Clarity Clear (Clear); Glucose Negative (Negative); Ketones 40 mg/dL (Negative); Leukocyte Esterase Small (Negative); Nitrite Negative (Negative); Urobilinogen 0.2 EU/dL (Up TO 0.2); pH 6.5 (5-8)
[2019-06-29 19:17] LABS: Bacteria Rare HPF (Negative); C & S Indicated? Yes; Casts 3-5 Hyaline LPF (Negative); Crystals Negative HPF (Negative); Epithelial Cells Few HPF (Negative); Mucus Trace (Negative)
[2019-06-29] MEDS: Metoclopramide 10 MG TAB PO (19:51)
== END 2019-06-29 19:55 | disposition home or self-care (01) ==
PROVIDERS: Emergency Provider Physician Assistant; PCP Nurse Practitioner Family
DX: R11.2 Nausea with vomiting, unspecified (principal); D72.829 Elevated white blood cell count, unspecified; R19.7 Diarrhea, unspecified; E86.0 Dehydration; E83.42 Hypomagnesemia; F10.188 Alcohol abuse with other alcohol-induced disorder
CPT/HCPCS: 36415; 80053; 93005; 96361; 96374; 96375; 99284; 81003; 81015; 83735; 85025; 87086; 93010; 99285; J1200; J2765

== ENCOUNTER 2019-07-11 00:17 | Outpatient (CLI) | payer MEDICAID, SELFPAY ==
--- NOTE | 2019-07-11 11:44 | DI.US_ITS ---
APPROVED REPORT EXAM: Comprehensive 2D, Doppler, and color-flow Echocardiogram Patient Location: Out-Patient Registered Nurse Renal: Manisha Carcamo RDCS (AE) Indications: Chest pain Conclusion Left Ventricle : The left ventricle is normal size. The left ventricular systolic function is normal. The left ventricular ejection fraction is within the normal range. There is normal left ventricular wall thickness. There is normal LV segmental wall motion. The left ventricular diastolic function is normal. LVEF is 50-55%. Right Ventricle : The right ventricle is normal size. The right ventricular systolic function is norm al. Atria : The left atrium size is normal. The right atrium size is normal. Valves: There are no hemodynamically significant valvular lesions. Great Vessels : IVC is normal in size and collapses >50% with inspiration. Estimated RVSP is 17 mmHg . There is no prior echocardiogram available for comparison. Wall motion Left Ventricle The left ventricle is normal size. The left ventricular systolic function is normal. The left ventric ular ejection fraction is within the normal range. There is normal left ventricular wall thickness. T here is normal LV segmental wall motion. The left ventricular diastolic function is normal. There is no ventricular septal defect visualized. LVEF is 50-55%. Right Ventricle The right ventricle is normal size. The right ventricular systolic function is normal. Atria The left atrium size is normal. The right atrium size is normal. The interatrial septum is intact wit h no evidence for an atrial septal defect. Aortic Valve The aortic valve is normal in structure. Aortic valve is trileaflet. There is no aortic valvular sten osis. No aortic regurgitation is present. Mitral Valve The mitral valve is normal in structure. No evidence of mitral valve stenosis. Trace to mild mitral r egurgitation. Tricuspid Valve The tricuspid valve is normal in structure. There is no tricuspid valve stenosis. Trace tricuspid reg urgitation. Pulmonic Valve The pulmonary valve is normal in structure. There is no pulmonic valvular stenosis. There is no pulmo alphonso valvular regurgitation. Great Vessels The aortic root is normal in size. The pulmonary artery is normal. The ascending aorta is normal in s ize. Aortic arch is normal in caliber. IVC is normal in size and collapses >50% with inspiration. Est imated RVSP is 17 mmHg. Pericardium There is no pericardial effusion. There is no pleural effusion. 2D Dimensions IVSD d PLAX 0.75 cm F: 0.6-1.0 LV Vol A2C d MOD 75.6 mL LVPW d PLAX 0.75 cm F: 0.6 - 1.0 LV Vol A4C d MOD 82.6 mL LVID d PLAX 4.16 cm F: 3.8 - 5.2 LA vol/ BSA A2C s A-L 25.6 mL/m2 LVDs 2.95 cm F: 2.2 - 3.5 LA vol/ BSA A4C s A-L 24.2 mL/m2 Ao Root d 2.58 cm F: 2.7 - 3.3 LA Vol/ BSA Biplane s A-L 25.7 mL/m2 RA Area A4C 11.73 cm2 LA Area A4C s MOD 14.68 cm2 RA Vol/ BSA A4C s A-L 17.3 mL/m2 LA Area A2C s MOD 14.66 cm2 Ao Asc Diam d 2.64 cm F: 2.3 - 3.1 LV EF A4C MOD 53.4 % LV EF Teichholz 54.8 % LV EF A2C MOD 56.5 % LVEF (Singleton's) 54.73 % F: 54 - 74 LV EF Biplane MOD 54.7 % LV Volume 64.80 mL F: 46 - 106 LV Volume Index 41.53 mL/m2 F: 29 - 61 LV Vol Biplane MOD 79.1 mL FS 28.10 % M-Mode TAPSE 1.67 cm (M/F) <1.7 LV Diastology MV E' medial 0.086 (>0.07 m/s) E/A Ratio 1.3 LV E/e MED 8.75 (<14) MV E Vmax 0.76 (0.4-1.3 m/s) MV E' lateral 0.106 (>0.1 m/s) MV A Vmax 0.60 (0.4-1.3 m/s) LV E/e LAT 7.15 (<14) MV E/A Ratio 1.23 MV E/E' medial 8.77 MV E/E' lateral 7.15 Aortic Valve LVOT Area 2.95 cm2 AoV Area Vmax 2.51 cm2 LVOT Vmax 0.92 m/s AoV Area/ BSA (Vmax) 1.60 cm2/m2 LVOT Mean Samson. 0.58 m/s THEE Mean Samson. 2.27 cm2 LVOT Peak Grad 3.4 mmHg THEE Mean Samson. Index 1.45 cm2/m2 LVOT Mean Grad 1.6 mmHg LVOT VTI 0.220 m LVOT Diam s 1.90 cm (M/F) 1.5-2.5 AoV Vmax 1.08 (0.5-1.3 m/s) Velocity Ratio 0.85 AoV Mean Samson. 0.76 m/s AoV Peak Grad 4.7 mmHg LVOT SV 64.82 mL AoV Mean Grad 2.6 (<5 mmHg) AoV VTI 0.240 (0.18-0.25 m) AoV Area VTI 2.70 (2.5-4.5 cm2) AoV Area/ BSA (VTI) 1.73 cm/m2 Mitral Valve MV DT 178 (160-240 msec) MV PHT 52 msec MV Area PHT 4.26 cm2 Pulmonary Valve PV Vmax 0.68 (0.5-1.5 m/s) RVOT Peak Gr. 0.69 mmHg PV Peak Grad 1.9 mmHg RVOT Mean Gr. 0.35 mmHg PV Mean Grad 1.1 mmHg RVOT VTI 0.107 m PV VTI 0.168 m RVOT Vmax 0.42 m/s Tricuspid Valve TR Peak Grad 14.6 mmHg TR Vmax 1.91 m/s RA Pressure 3.00 mmHg RVSP (TR) 17.7 mmHg
== END 2019-07-11 00:37 ==
PROVIDERS: PCP Nurse Practitioner Family; Visit Provider Family Medicine
DX: R07.89 Other chest pain (principal)
CPT/HCPCS: 93306

== ENCOUNTER 2020-11-24 16:04 | Outpatient (REF) | payer MEDICAID, SELFPAY ==
[2020-11-24 19:16] LABS: HCT 41.2 % (36.0-46.0); HGB 13.7 g/dL (11.2-15.7); MCH 30.9 pg (27.0-33.0); MCHC 33.3 % (32.0-36.0); MCV 92.8 fL (80-95); MPV 10.2 fL (8.0-11.0); Platelet Count 302 10^3/uL (130-400); RBC 4.44 10^6/uL (3.93-5.22); RDW 13.3 % (11.7-14.6); RDW-SD 45.3 fL; WBC 7.81 10^3/uL (4.4-10.8)
[2020-11-24 19:51] LABS: ALT 25 U/L (14-59); AST 17 U/L (15-37); Albumin 3.9 g/dL (3.4-5.0); Alkaline Phosphatase 90 U/L (46-116); Anion Gap 8.1 mmol/L (3-11); BUN 14 mg/dL (7-18); Bilirubin, Total 0.2 mg/dL (0.2-1.0); CO2 25.9 mmol/L (21.0-32.0); CREATININE 0.8 mg/dL (0.55-1.02); Calcium 9.2 mg/dL (8.5-10.1); Chloride 104 mmol/L (98-107); Glucose 86 mg/dL (74-106); Lipase 275 U/L (73-393); Potassium 4.8 mmol/L (3.5-5.1); Sodium 138 mmol/L (136-145); Total Protein 7.1 g/dL (6.4-8.2)
== END 2020-11-24 16:05 | disposition home or self-care (01) ==
LOC: NCHCN 16:04
PROVIDERS: PCP Nurse Practitioner Family; Visit Provider Physician Assistant
DX: R11.2 Nausea with vomiting, unspecified (principal)
CPT/HCPCS: 80053; 83690; 85027

== ENCOUNTER 2020-12-29 02:39 | Outpatient (CLI) | payer MEDICAID, SELFPAY ==
--- NOTE | 2020-12-29 | DI.US_ITS ---
Exam(s) US ABDOMEN EXAM: US ABDOMEN CLINICAL HISTORY: NAUSEA,VOMITING,R11.2,? CHOLECYSTITIS TECHNIQUE: Ultrasound abdomen performed using standard protocol. COMPARISON: CT THORACIC AND LUMBAR SPINE WO from 01/30/2017 CT CHEST ABD PELVIS WITH CONTRAST from 01/30/2017 CT CHEST ABD PELVIS WITH CONTRAST from 01/30/2017 FINDINGS: LIVER: Normal size and echogenicity. No focal liver lesions are seen.. GALLBLADDER: No evidence of cholelithiasis. No evidence of wall thickening. No pericholecystic fluid identified. NEVILLE'S SIGN: Negative. BILIARY SYSTEM: No intrahepatic or extrahepatic biliary ductal dilation. KIDNEYS: Kidneys are symmetric in size. No evidence of renal calculi. No evidence of hydronephrosis. No renal mass or cyst identified. PANCREAS: Normal where visualized. SPLEEN: Not enlarged. ABDOMINAL AORTA AND IVC: Visualized portions normal caliber. ASCITES: None seen. IMPRESSION: Normal sonographic appearance of the upper abdomen. DATA REPOSITORY:
== END 2020-12-29 02:59 ==
PROVIDERS: PCP Physician Assistant; Visit Provider Physician Assistant
DX: R11.2 Nausea with vomiting, unspecified (principal)
CPT/HCPCS: 76700

== ENCOUNTER 2021-01-08 10:31 | Outpatient (CLI) | payer MEDICAID, SELFPAY ==
--- NOTE | 2021-01-08 10:15 | DI.RAD_ITS ---
Exam(s) XR FEMUR LT EXAM: XR FEMUR LT CLINICAL HISTORY: left femur fracture TECHNIQUE: COMPARISON: CR XR FEMUR LT from 01/21/2019 FINDINGS: Four views were obtained and show lung gamma nail in place transfixing an apparently healed intertroc hanteric fracture of the femur. Slight degenerative changes of the hip and knee are noted. No other bony or soft tissue abnormality seen. IMPRESSION: RADIATION DOSE DELIVERED: Total DLP
--- NOTE | 2021-01-08 10:15 | DI.RAD_ITS ---
Exam(s) XR FOOT LT COMPLETE EXAM: XR FOOT LT COMPLETE CLINICAL HISTORY: left foot pain TECHNIQUE: COMPARISON: ECG EKG from 04/15/2019 ECG EKG from 04/15/2019 FINDINGS: Three views were obtained. There is plate and screw fixation of the calcaneus. No prior films avail able for comparison. Moderate degenerative changes appear to be present at the tibiotalar joint whic h is incompletely seen. Moderate moscoso articular degenerative changes of the joints of the foot noted. No other significant findings. IMPRESSION: RADIATION DOSE DELIVERED: Total DLP
== END 2021-01-08 10:32 | disposition home or self-care (01) ==
LOC: DIORS 10:31
PROVIDERS: PCP Physician Assistant; Referring Provider Physician Assistant; Visit Provider Physician Assistant
DX: T84.84XA Pain due to internal orthopedic prosthetic devices, implants and grafts, initial encounter (principal)
CPT/HCPCS: 73552; 73630

== ENCOUNTER 2021-01-20 02:01 | Outpatient (CLI) | payer MEDICAID, SELFPAY ==
--- NOTE | 2021-01-20 08:15 | DI.CT_ITS ---
Exam(s) CT LOWER EXTREMITY LT WO EXAM: CT LOWER EXTREMITY LT WO CLINICAL HISTORY: PAIN L ANKLE, PAINFUL ORTHOPEDIC HARDWARE, T84.84XA. TECHNIQUE: Imaging Protocol: Axial computed tomography images with coronal and sagittal reformatted images were created and reviewed. CONTRAST MATERIAL: Intravenous: None COMPARISON: CR XR FOOT LT COMPLETE from 01/08/2021 FINDINGS: There is ankle joint. There is a single air bubble seen within anterior aspect of the ankle joint ef fusion. Mild degenerative changes in the ankle. There is no osteochondral defect in the talar dome. Generalized osteopenia noted. There is a lateral fixation plate in the calcaneus secured by multiple screws. There is osteopenia w ithin the calcaneus but no distinct fracture line. There is edema but no abscess seen in the deep soft tissues. IMPRESSION: Lateral calcaneus plate. Secured by multiple screws and there is an independent oblique screw in the anterior calcaneus parallel to the calcaneocuboid joint. The inferior aspect of the screws sticks o ut approximately 1-2 millimeters below the cortical surface of the calcaneus at this level. No radio graphic evidence of osteomyelitis. Anterior ankle joint effusion which contains a single air bubble. RADIATION DOSE DELIVERED: 329.36mGy.cm Total DLP DATA REPOSITORY: All CT scans at this facility are submitted to the National Radiology Data Registry (NRDR) Dose Index Registry (DIR) with the [employer] (ACR). RADIATION OPTIMIZATION: All CT scans at this facility use at least one of these dose optimization te chniques: automated exposure control; mA and/or kV adjustment per patient size (includes targeted exa ms where dose is matched to clinical indication); or iterative reconstruction.
== END 2021-01-20 02:21 ==
PROVIDERS: PCP Physician Assistant; Visit Provider Student in an Organized Health Care Education/Training Program
DX: T84.84XA Pain due to internal orthopedic prosthetic devices, implants and grafts, initial encounter (principal); M25.472 Effusion, left ankle
CPT/HCPCS: 73700

== ENCOUNTER 2021-01-22 11:45 | Outpatient (REF) | payer MEDICAID, SELFPAY ==
--- NOTE | 2021-01-22 09:20 | PAPFT_PTH ---
PATIENT: Carissa Anguiano LOC: [facility] U#:[id number] AGE/SX: 50/F ROOM: RE01/22/[address]: SANTA Zuniga : 1970 BED: DIS: 01/22/2021 SPEC #: [id number] RECD: 01/22/21 12:53 STATUS: ASHLEY REQ #: [id number] SOHAIL: 01/22/21 09:[address]: Rakel Shelton DEPT[facility] Cytology RECD BY: Gena Hill ENTERED: 01/22/21 12:53 SP TYPE: PAPFT OTHR DR: Henrry Ragland Tissues: 1 - CX/ENDOCX FOR PAP SMEARS Procedures: PAP THIN PREP/UVM Screening HPV DNA PROBE Comments: [id number]
== END 2021-01-22 11:46 | disposition home or self-care (01) ==
LOC: LBN 11:45
PROVIDERS: PCP Physician Assistant; Visit Provider Nurse Practitioner Family
DX: Z12.4 Encounter for screening for malignant neoplasm of cervix (principal); Z11.51 Encounter for screening for human papillomavirus (HPV)
CPT/HCPCS: 88142; 87624

== ENCOUNTER 2021-02-08 02:45 | Outpatient (CLI) | payer MEDICAID, SELFPAY ==
[2021-02-08 12:53] LABS: Source Nasal/Nares
[2021-02-08 20:55] LABS: COVID-19 PCR Negative (Negative)
== END 2021-02-08 02:46 | disposition home or self-care (01) ==
LOC: LBO 02:45
PROVIDERS: PCP Physician Assistant; Visit Provider Student in an Organized Health Care Education/Training Program
DX: Z20.822 Contact with and (suspected) exposure to COVID-19 (principal); Z01.818 Encounter for other preprocedural examination
CPT/HCPCS: 87635

== ENCOUNTER 2021-02-09 09:00 | Day surgery (SDC) | payer MEDICAID, SELFPAY ==
[2021-02-09] VITALS (7 sets, daily range): BP systolic 104–143; BP diastolic 65–96; PULSE 73–87; RESP 12–18; TEMP 36.3–36.4; O2SAT 96–100; BMI 24.1
--- NOTE | 2021-02-09 07:34 | PDOC.DSDIS_ITS ---
Discharge Plan Disposition Patient Disposition: HOME Condition: Stable Discharge Details Reason For Visit: Left Hip Removal of Hardware Attending Provider: Stephen Montana Primary Care Provider: Henrry Ragland Home Meds and New Rx's Prescriptions: New aspirin 81 mg tablet,delayed release (DR/EC) 81 mg PO BID Qty: 60 RF: 0 celecoxib [Celebrex] 200 mg capsule 200 mg PO BID Qty: 60 RF: 0 oxycodone 5 mg tablet 5 mg PO Q4H PRNQty: 10 RF: 0 acetaminophen [Tylenol Extra Strength] 500 mg tablet 500 mg PO Q6H PRNQty: 90 RF: 0 Continued mirtazapine 7.5 mg tablet 7.5 mg PO QHS RF: 0 venlafaxine [Effexor XR] 75 MG capsule,extended release 24hr 75 mg PO DAILY RF: 0 omeprazole 40 mg capsule,delayed release(DR/EC) 40 mg PO DAILY Qty: 30 RF: 0 Discharge Instructions Additional Instructions: Removal of Hardware Discharge Instructions Activity: The most important activity is to walk. You should try to take short walks a few times a day. You have no restrictions on movement or positioning, but do not try to force what you do. You will find some stiffness and weakness with hip flexion (lifting your knee). Do not try to strengthen this too early, continue to practice walking and stairs and this will come. Dressing: Keep the surgical dressing in place for at least one week. After the first week it may be removed and replace with light gauze and tape or nothing. It may get wet after 3 days but avoid soaking the dressing. If it gets wet, just lightly pat dry. It is important to always keep some gauze between skin folds, especially when you are sitting. Spend some time with the wound exposed when you are lying flat as the incision does wrinkle onto itself. Medications: - You should take Tylenol and an anti-inflammatory Celebrex as your primary pain control medications. If the Celebrex is too expensive or not covered, please call the office for another alternative (Advil/Ibuprofen or Naproxen/Aleve). - You have been prescribed a stronger pain medication Oxycodone for breakthrough pain, take as needed as prescribed. - You will be taking Aspirin 81mg twice a day for DVT prevention unless instructed otherwise. - If you have constipation you should take Colace or Miralax (both [id number]). It takes most people 3-4 days to have a bowel movement. Follow-up: 2 weeks If you have any acute concerns or questions, please do not hesitate to contact the office at [phone]. You may contact Dr. Montana with any questions after hours through the hospital at [phone] or on his cell phone at [phone]. Referrals: Stephen Montana MD [ [facility] STAFF PHYSICIAN] - Equipment/Supplies: Partial Weight Bearing Crutches Activity:: Activity as Tolerated Remove Dressings/Wound Care:: Do Not Remove Shower/Bathe:: 72 hours Diet:: As Tolerated DS: Diagnosis Discharge Diagnosis (1) Painful orthopaedic hardware: Status: Acute
--- NOTE | 2021-02-09 09:29 | W.ANESPRE ---
General Info Date of Service Date Performed: 02/09/21 Height: 5 ft 2.5 in Weight: 60.9 kg Body Mass Index (BMI): 24.1 Surgical Procedure: Operation Date: 02/09/21 10:55 Proposed Procedures Side Surgeon p Hip Hardware Removal Left Stephen Montana MD Meds Allergies and Home Medications Allergies Allergy/AdvReac Type Severity Reaction Status Date / Time No Known Allergies Allergy Verified 02/09/21 09:23 Home Medication Medication Instructions Recorded venlafaxine [Effexor XR] 75 mg PO DAILY 01/30/17 omeprazole 40 mg PO DAILY #30 cap 02/10/18 mirtazapine 7.5 mg tablet 7.5 mg PO QHS 01/27/21 acetaminophen [Tylenol Ex Str 1,000 mg PO Q6H PRN 02/09/21 Rapid Release] acetaminophen [Tylenol Extra 500 mg PO Q6H PRN #90 tab 02/09/21 Strength] aspirin 81 mg PO BID #60 tab 02/09/21 celecoxib [Celebrex] 200 mg PO BID #60 cap 02/09/21 ibuprofen 400 mg PO Q6H PRN 02/09/21 oxycodone 5 mg PO Q4H PRN #10 tab 02/09/21 Current Visit Medications: Current Medications Generic Name Dose Route Start Last Admin Trade Name Freq PRN Reason Stop Dose Admin Acetaminophen 1,000 mg 02/09/21 06:00 Acetaminophen 500 Mg Tab PO 02/09/21 16:00 PREOP [facility] Acetaminophen 1,000 mg 02/09/21 14:00 Acetaminophen 500 Mg Tab PO TID [facility] Aspirin 81 mg 02/09/21 20:00 Aspirin E.C. 81 Mg Tabec PO BID ROBERTA Celecoxib 400 mg 02/09/21 06:00 Celecoxib 200 Mg Cap PO 02/09/21 16:00 PREOP ROBERTA Celecoxib 200 mg 02/09/21 20:00 Celecoxib 200 Mg Cap PO BID ROBERTA Docusate Sodium 100 mg 02/09/21 07:33 Docusate Sodium 100 Mg Cap PO BID PRN PRN Constipation Ringer's Solution 1,000 mls @ 80 mls/hr 02/09/21 06:00 IV 03/10/21 23:59 INFUSION ROBERTA Cefazolin Sodium/Dextrose 2 gm in 50 mls @ 100 mls/hr 02/09/21 06:00 Ancef Duplex IVPB 03/10/21 23:59 PREOP ROBERTA Cefazolin Sodium/Dextrose 1 gm in 50 mls @ 100 mls/hr 02/09/21 15:00 Ancef Duplex IVPB 02/10/21 07:29 Q8H ROBERTA IV Miscellaneous Supplies 1 each 02/09/21 06:00 Iv Access IV 03/10/21 23:59 DIRECTED ROEBRTA Ondansetron HCl 4 mg 02/09/21 07:33 Ondansetron 4 Mg/2 Ml Vial IVP Q6H PRN PRN Nausea Oxycodone HCl 0 mg 02/09/21 07:33 Oxycodone 5 Mg Tab PO Q3H PRN PRN Pain Pantoprazole Sodium 40 mg 02/10/21 07:30 Pantoprazole 40 Mg Tabcr PO DAILY@0730 ROBERTA Sodium Chloride 0 ml 02/09/21 06:00 Normal Saline Flush 10 Ml Syr IV 03/10/21 23:59 PRN PRN Sodium Chloride 0 ml 02/09/21 06:00 Normal Saline 10 Ml Vial IJ 03/10/21 23:59 DIRECTED PRN Sterile Water 0 ml 02/09/21 06:00 Water,Injection,Sterile 10 Ml Vial IJ 03/10/21 23:59 DIRECTED PRN PFSH Active Problems Active Problems: Problem Status Onset Code Painful orthopaedic hardware T84.84XA Preoperative cardiovascular examination Z01.810 Diverticulosis K57.90 Colon polyp K63.5 GERD (gastroesophageal reflux disease) K21.9 Trochanteric bursitis, left hip 10/02/17 M70.62 Pulmonary hypertension I27.20 T12 compression fracture S22.080A Acute electrocardiogram changes R94.31 Tobacco abuse Z72.0 Muscle spasm M62.838 Radiculopathy M54.10 Chest pain R07.9 Medical History Medical History Acute electrocardiogram changes Anxiety Bilateral calcaneal fractures Chest pain Pt. states this is not accurate, pt. states she had pain in side near her ribs, pt. states she was told it was a muscle spasm Closed left hip fracture Depression GERD (gastroesophageal reflux disease) History of ETOH abuse IUD surveillance (01/13/15) Menorrhagia Muscle spasm Pulmonary hypertension pt. denies this Radiculopathy Status post fracture of femur T12 compression fracture Tobacco abuse Trochanteric bursitis, left hip (10/02/17) Surgical History Surgical History section x 3 H/O colonoscopy (~05/2019) Hyperplastic polyp History of repair of hip fracture left femur, heel Ligation of fallopian tube 1989 Tobacco Smoking/Tobacco Use Status: Current every day Tobacco Type: cigarettes Smoking packs per day: 1 Smoking cigarettes per day: 20.0 Years smoked: 40 Smoking pack-years: 40.00 Alcohol Alcohol Intake: current Alcohol intake frequency: a few times a month Alcohol type: beer Substance Use Substance use: Daily Substance use type: marijuana Details: History of previous heroin, cocaine, crack, Kaylene, meth Last use of any of these meds was over 3 years Denies IV drug use States smoked marijuana today 02.09.21 Prental History History 5 Para 3 Hx # Term Pregnancies Multiple births Hx # Pregnancies Ectopic pregnancies AB induced Hx Number of Living Children AB spontaneous Vital Signs and Lab Results Vital Signs Most Recent Vital Signs in EMR: Most Recent Vital Signs Temp Pulse Resp BP Pulse Ox 36.4 C L 79 16 104/65 97 02/09/21 09:11 02/09/21 09:11 02/09/21 09:11 02/09/21 09:11 02/09/21 09:11 Lab Results Blood Type / Crossmatch: No Data to Display Complete Blood Count: No Data to Display Complete Metabolic Panel: No Data to Display Liver Function Panel: No Data to Display Coagulation Panel: No Data to Display Cardiac Panel: No Data to Display Arterial Blood Gas: No Data to Display Venous Blood Gas: No Data to Display Pancreas Panel: No Data to Display Thyroid Panel: No Data to Display Infectious Disease: Coronavirus (COVID-19)(PCR) Negative (Negative) 02/08/21 11:00 02/08/21 Coronavirus 2019 Source Nasal/Nares 02/08/21 11:00 02/08/21 Blood Cultures: No Data to Display Toxicology Panel: No Data to Display Panel: No Data to Display Imaging and Studies Imaging and Studies Stress Test Summary: Stress results: The rate-pressure product for the peak heart rate and blood pressure was 15112ks Hg/min. Stress ECG: LEXISCAN TESTING ENDED IN 6 MINS, 4 SECS EFFECT OF MEDICATION NO LONGER PRESENT. MAX HR WAS 112, WITH A NORMAL BLOOD PRESSURE RESPONSE. ECTOPY: NONE NOTED. ANGINA: NO REPORTED CHEST PAIN OR PRESSURE. ISCHEMIA: NO ISCHEMIC CHANGES NOTED. 03/12/18 Echocardiogram Summary: Conclusion Left Ventricle : The left ventricle is normal size. The left ventricular systolic function is normal. The left ventricular ejection fraction is within the normal range. There is normal left ventricular wall thickness. There is normal LV segmental wall motion. The left ventricular diastolic function is normal. LVEF is 50-55%. Right Ventricle : The right ventricle is normal size. The right ventricular systolic function is normal. Atria : The left atrium size is normal. The right atrium size is normal. Valves: There are no hemodynamically significant valvular lesions. Great Vessels : IVC is normal in size and collapses >50% with inspiration. Estimated RVSP is 17 mmHg. There is no prior echocardiogram available for comparison. 07/11/19 Anesthesia Assessment and Plan Anesthesia History Personal History: No History of Anesthesia Complications Family History: No Family History of Anesthesia Complications Exercise Tolerance Exercise Tolerance: Metabolic Equivalents>4 Pertinent Negatives Pertinent Negatives: No Symptoms of GERD (Well controlled), No Major Cardiovascular Symptoms or Complaints, No Major Pulmonary Symptoms or Complaints and No History of CVA/TIA Cardiac & Pulmonary Exam Cardiac Exam: Normal S1/S2 Heart Sounds Pulmonary Exam: Clear Bilateral Breath Sounds Cardiac and Pulmonary Comment:: Smoker and daily marijuana use Airway Exam Known Difficult Airway: No Mallampati Class: 2 Mouth Opening: Normal (> 3cm) Thyromental Distance: Greater than 3 cm Neck Range of Motion: Full ROM Neck Circumference: Normal Teeth Condition: Dental Caries ( Very poor dentition, patient states none are loose. Discussed possibility of loosening or dislodging teeth. ) ASA Classification ASA Score: ASA 2 Emergency Case?: No NPO Status NPO Status: NPO Clears >2 hours, Solids >8 hours Status Status: Negative HCG Anesthesia Plan Resuscitation Status: Full Code Anesthesia Technique: General Anesthesia Airway Planned: LMA Pain Management: Surgeon and patient request nerve block Monitors Used: Standard Monitors
[2021-02-09] MEDS: Acetaminophen 500 MG TAB 1000 MG PO (09:41)
[2021-02-09] MEDS: Celecoxib 200 MG CAP 400 MG PO (09:41)
[2021-02-09] MEDS: Lactated Ringers 1,000 ML 80 ML IV (09:52)
[2021-02-09] MEDS: Gabapentin 300 MG CAP PO (09:55)
[2021-02-09] MEDS: ceFAZolin 2 GM/50 ML BAG IVPB (10:21)
[2021-02-09] MEDS: Bupivacaine 0.25% Pres-Free 30 ML VIAL (10:57)
[2021-02-09] MEDS: Ketorolac 30 MG/ML VIAL (10:57)
--- NOTE | 2021-02-09 11:13 | DI.RAD_ITS ---
Exam(s) XR HIP LT IN OR EXAM: XR HIP LT IN OR CLINICAL HISTORY: HARDWARE REMOVAL TECHNIQUE: 2D and realtime digital imaging was performed. CONTRAST MATERIAL: Refer to procedure report. COMPARISON: CR XR FEMUR LT from 01/08/2021 FINDINGS: Fluoroscopy was provided for Dr. Montana during the performance of a hardware removal. Please refe r to the procedure report for complete details. Ka,r=4.55 mGy IMPRESSION: RADIATION DOSE DELIVERED:
[2021-02-09] MEDS: fentaNYL 100 MCG/2 ML VIAL IVP ×2 (12:00→12:15)
--- NOTE | 2021-02-09 12:38 | W.ANESPOSTOP ---
Postoperative Evaluation Date, Time and Location Date Performed: 02/09/21 Time Performed: 12:38 Patient Location: PACU Vital Signs Most Recent Imported Vital Signs: Most Recent Vital Signs Temp Pulse Resp BP Pulse Ox 36.4 C L 83 18 131/93 H 96 02/09/21 12:15 02/09/21 12:15 02/09/21 12:15 02/09/21 12:15 02/09/21 12:15 Pain Score Most Recent Pain Score: Most Recent Pain Score Pain Level 7 02/09/21 12:15 Assessment Mental Status: Awake (Alert & Oriented to Patient Baseline) Airway and Respiratory Function: Patent airway with normal (patient baseline) respiratory exam Cardiovascular Function: Hemodynamically Stable Hydration Status: Adequately Hydrated Nausea & Vomiting: No Nausea or Vomiting Pain: Pain is tolerable per patient (Pain level down to 4/10) Peripheral Nerve Block: Patient did not receive a nerve block
[2021-02-09] MEDS: oxyCODONE 5 MG TAB PO (13:15)
--- NOTE | 2021-02-09 14:05 | ROE_ITS ---
Date of service: 02/09/21 Time of Service: 11:05 Operative Note Operative Note DATE OF PROCEDURE: 02/09/21 PRE-OP DIAGNOSIS: Retained Painful Hardware, Left Femur POST-OP DIAGNOSIS: same PROCEDURE: Removal Deep Hardware - Left Femur SURGEON: Stephen Montana [employer] SUPERVISOR: Kimberlee Dumont ANESTHESIA TYPE: General LMA/ETT Refer to Anesthesia Record ESTIMATED BLOOD LOSS: 75 PATHOLOGY: none sent TOURNIQUET TIME: 0 COMPLICATIONS: None Patient was transported to: PACU Patient's condition: stable Indications: Carissa is a 50yo female who suffered a comminuted intertrochanteric fracture fixed with an intramedullary nail in 2017. She has recurrent pain and bursitis from the helical blade and desired it to be removed given the failure of other nonoperative treatment options. Therfore, I offered hardware removal. I discussed the technical details of the surgery. I reviewed the risks such as bleeding, infection, pain, stiffness, refracture, blood clot. Despite these risks, she agreed to proceed. Findings: The helical blade from the TFNA was removed without difficulty. Procedure Description: Carissa was greeted in the preoperative area. Consent was previously reviewed and signed. Once in the operating room, anesthesia was administered. The patient was transferred to the fracture table in the supine position. She was positioned onto the perineal post. All bony prominences were well padded. The arm of the operative side was then placed across the chest and secured. The nonoperative leg was scissored and secured to the traction boom with a pillow and tape. The operative limb was placed in the traction boot and padded and secured. A gentle reduction was then performed with traction and internal rotation and gentle external manipulation. A single dose of TXA, 1 gram, was then administered IV. Prophylactic antibiotics, Cefazolin 2 grams, was given for prophylactic antibiotics. A timeout was performed for safe surgery. The left leg was prepped with Chloraprep and draped in a standard fashion. The previous incisions were utilized. The soft tissues were cut sharply. I then used the guidewire to find the proximal aspect of the femoral nail. Once this was in appropriate position I then cut against the guidewire opening the fascia of the abductors. The flexible screwdriver was then inserted into the proximal aspect of the femoral nail and advanced until it was fully seated. Then unscrewed the setscrew until its fully loosened. The lateral wound was then opened and extended proximally. Sharp dissection was carried onto the skin and soft tissue. The helical blade was palpable from underneath the IT band. A transverse IT band tenotomy was then performed. This was done to relax in the IT band and hopefully prevent any recurrent bursitis. This was carried through the tendinous portion of the IT band so open approximately 2 cm. There is mild bursitis seen overlying the helical blade which was removed with a rongeur. The vastus lateralis was split so the helical blade was easily visible. I then inserted the removal device into the helical blade. The blade was able to be removed with easy back slaps of the extraction device. Once it was removed a curette was utilized to roughen the helical blade site. The wounds were thoroughly irrigated. A mixture of 10 cc of Exparel with 50 cc of 0.25% bupivacaine, and 30 mg ketorolac was injected throughout the wounds over the leg. The deep fascia of the proximal two wounds was reapproximated with a 0 Vicryl. The IT band tenotomy site was not closed. The deep tisses were closed with a 2-0 Vicryl and the skin was closed with subcuticular Monocryl. At the end of the case, all counts were correct. Carissa tolerated the procedure well without known complication and was taken to the PACU for recovery. She will be weightbearing as tolerated. Crutches for support. Follow-up in 2
== END 2021-02-09 13:52 | disposition home or self-care (01) ==
PROVIDERS: PCP Physician Assistant; Visit Provider Student in an Organized Health Care Education/Training Program
PROC: (CPT 20680; principal; 2021-02-09 10:45)
DX: T84.84XA Pain due to internal orthopedic prosthetic devices, implants and grafts, initial encounter (principal)
CPT/HCPCS: 20680; 81025; 73501; J0690; J1100; J1885; J2405; J2704; J3010

== ENCOUNTER 2021-03-10 17:22 | Emergency (ER) | payer MEDICAID, SELFPAY ==
[2021-03-10 17:27] VITALS: BP 156/95; PULSE 107; RESP 16; TEMP 36.8; O2SAT 98
--- NOTE | 2021-03-10 17:36 | ED.GENADUL_ITS ---
Discharge Plan Disposition Patient Disposition: HOME Condition: Stable Discharge Details Clinical Impression: Surgical wound dehiscence, Postoperative wound cellulitis Primary Care Provider: Henrry Ragland ED Provider: Allie Mcneill Home Meds and New Rx's Prescriptions: New sulfamethoxazole-trimethoprim [Bactrim DS] 800-160 mg tablet 2 tab PO BID 7 Days Qty: 28 RF: 0 Continued mirtazapine 7.5 mg tablet 7.5 mg PO QHS RF: 0 venlafaxine [Effexor XR] 75 MG capsule,extended release 24hr 75 mg PO DAILY RF: 0 omeprazole 40 mg capsule,delayed release(DR/EC) 40 mg PO DAILY Qty: 30 RF: 0 aspirin 81 mg tablet,delayed release (DR/EC) 81 mg PO BID Qty: 60 RF: 0 celecoxib [Celebrex] 200 mg capsule 200 mg PO BID Qty: 60 RF: 0 acetaminophen [Tylenol Extra Strength] 500 mg tablet 500 mg PO Q6H PRNQty: 90 RF: 0 acetaminophen 500 mg Tablet 1,000 mg PO Q6H PRNRF: 0 ibuprofen 200 mg Tablet 400 mg PO Q6H PRNRF: 0 Discharge Instructions Instructions: Cellulitis (ED), Wound Dehiscence (ED) Additional Instructions: Keep the area covered with wet-to-dry dressings which you can change once daily. Apply wet gauze directly to the wound and then cover with dry gauze and tape. A prescription for antibiotics has been sent electronically to your pharmacy. Take this as directed until finished. Alternate tylenol and motrin as needed and directed for pain. You have been sent home with 2 tabs of tramadol to take as needed and directed for pain not relieved with Tylenol or Motrin. Call the orthopedics office tomorrow morning to schedule a follow-up appointment for reevaluation within the next week. Return immediately to the emergency department if you develop any worsening or new concerning symptoms. Referrals: Stephen Montana MD [ [facility] STAFF PHYSICIAN] - Discharge Data Discharge Physician: Allie Mcneill Medical Decision Making 50-year-old F status post removal of painful hardware - helical blade from left hip TFNA on 02/09/2021 presents with drainage from left hip wound for 1 week now with wound dehiscence and increasing pain and drainage for the past 2 days. Patient appears uncomfortable but nontoxic. There is a 1 x 1 cm open wound within the surgical incision. There is serous fluid within the the opening but no pus drainage. There is mild erythema and tenderness around the wound but questionable early cellulitis but no crepitus or abscess. The more distal wound is healing well. Neurovascularly intact. Pictures of wound taken with patient's consent and reviewed with Dr. Montana. No recommendations for labs or imaging at this time. Recommends covering for MRSA with Bactrim with wet-to-dry dressings. Patient was given a dose of Bactrim and oxycodone here and sent home with tramadol and Bactrim. Wet to dry dressings placed. Advised to follow-up with orthopedics within the next week. Usual and customary return precautions given prior to discharge. Medical Records Medical records reviewed: Yes I reviewed the patient's medical records. HPI General Mode of arrival: ambulatory . Date/Time Provider Initiated Documentation: 03/10/21 17:33 . Limitations to Documentation: no limitations . Information obtained by: patient . HPI Narrative: Patient is a 50-year-old female who is status post removal of painful hardware - helical blade from left hip TFNA on 02/09/2021 presents with left hip pain since last week with a complaint that the hole has gotten bigger and more painful, draining serous fluid and sometimes milky. Patient states she noticed clear drainage from the left hip wound 1 week ago. She states she noticed a hole in the area 2 days ago for which she called the orthopedics office and sent pictures. She states for the past 2 days he has had increasing pain and drainage and today noted the hole to be bigger. She states she has pain mainly with walking upstairs. She denies any known fever. She has not taken any medication for pain. Related Data Home Medications Medication Instructions Recorded Confirmed venlafaxine [Effexor XR] 75 mg PO DAILY 01/30/17 03/10/21 omeprazole 40 mg PO DAILY #30 cap 02/10/18 03/10/21 mirtazapine 7.5 mg tablet 7.5 mg PO QHS 01/27/21 03/10/21 acetaminophen 1,000 mg PO Q6H PRN 02/09/21 03/10/21 acetaminophen [Tylenol Extra 500 mg PO Q6H PRN #90 tab 02/09/21 03/10/21 Strength] aspirin 81 mg PO BID #60 tab 02/09/21 03/10/21 celecoxib [Celebrex] 200 mg PO BID #60 cap 02/09/21 03/10/21 ibuprofen 400 mg PO Q6H PRN 02/09/21 03/10/21 sulfamethoxazole-trimethoprim 2 tab PO BID 7 Days #28 tab 03/10/21 [Bactrim DS] Previous Rx's Medication Instructions Recorded omeprazole 40 mg PO DAILY #30 cap 02/10/18 acetaminophen [Tylenol Extra 500 mg PO Q6H PRN #90 tab 02/09/21 Strength] aspirin 81 mg PO BID #60 tab 02/09/21 celecoxib [Celebrex] 200 mg PO BID #60 cap 02/09/21 sulfamethoxazole-trimethoprim 2 tab PO BID 7 Days #28 tab 03/10/21 [Bactrim DS] Allergies Allergy/AdvReac Type Severity Reaction Status Date / Time No Known Allergies Allergy Verified 03/10/21 17:31 General Stated Complaint: Cellulitis ANGELITA: 3 Review of Systems All systems reviewed & are unremarkable except as noted in HPI and below Constitutional Constitutional: Reports as per HPI, Denies chills and Denies fever(s) Eyes Eyes: Denies blurry vision ENT Ears, Nose, Mouth, and Throat: Denies dizziness, Denies sore throat and Denies throat swelling Cardiovascular Cardiovascular: Denies chest pain and Denies dyspnea Respiratory Respiratory: Denies cough and Denies dyspnea Gastrointestinal Gastrointestinal: Denies abdominal pain, Denies diarrhea and Denies vomiting Genitourinary Genitourinary: Denies hematuria and Denies dysuria Musculoskeletal Musculoskeletal: Denies back pain and Denies numbness Integumentary/Breasts Skin/Breast: Denies lesions and Denies rash Neurologic Neurologic: Denies dizziness, Denies localized weakness and Denies numbness Allergic/Immunologic Allergic/Immunologic: Denies throat swelling [facility] Active Problem List (Updated 03/10/21 @ 18:08 by Allie Mcneill DO) Surgical wound dehiscence (Acute) Postoperative wound cellulitis (Acute) Painful orthopaedic hardware (Acute) Preoperative cardiovascular examination (Acute) Diverticulosis (Acute) Colon polyp (Acute) GERD (gastroesophageal reflux disease) (Chronic) Trochanteric bursitis, left hip (Acute 10/02/17) Pulmonary hypertension (Acute) T12 compression fracture (Chronic) Acute electrocardiogram changes (Acute) Tobacco abuse (Chronic) Muscle spasm (Acute) Radiculopathy (Acute) Chest pain (Acute) Medical History (Updated 03/10/21 @ 18:08 by Allie Mcneill DO) Anxiety Bilateral calcaneal fractures Closed left hip fracture Depression History of ETOH abuse IUD surveillance (01/13/15) Menorrhagia Status post fracture of femur Surgical History (Updated 02/22/21 @ 11:12 by Laquita Gillis) section x 3 H/O colonoscopy (~05/2019) Hyperplastic polyp History of repair of hip fracture left femur, heel Ligation of fallopian tube 1989 Family History Mother Diabetes Osteoporosis Hyperlipidemia Social History (Updated 01/27/21 @ 14:29 by Laquita Gillis) Smoking/Tobacco Use Status: Current every day Tobacco Type: cigarettes Smoking packs per day: 1 Smoking cigarettes per day: 20.0 Years smoked: 40 Smoking pack- years: 40.00 Smoking risk assessment performed?: Yes Alcohol Intake: current Alcohol Intake frequency: a few times a month Alcohol type: beer Drug use: Daily Substance use type: marijuana Details: History of previous heroin, cocaine, crack, Kaylene, meth Last use of any of these meds was over 3 years Denies IV drug use States smoked marijuana today 02.09.21 Current gender identity: female Seatbelt use: always Do you feel safe at home: Yes Do you feel safe in your relationship?: Yes Female Reproductive History Menstrual control method: progestin IUCD, permanent sterilization and other History History 5 Para 3 Hx # Term Pregnancies Multiple births Hx # Pregnancies Ectopic pregnancies AB induced Hx Number of Living Children AB spontaneous Exam Const General: cooperative and no acute distress HENMT Head: normal to inspection Mouth: oral mucosae normal Eyes General: appearance normal, both eyes and all related structures Neck Neck: normal visual inspection Resp Effort & Inspection: normal respiratory effort and able to speak in complete sentences Cardio Rate: regular rate Skin General skin exam: no rashes or lesions noted Neuro General: patient alert, patient awake and patient oriented x3 Motor: muscle tone normal throughout Extrem Upper/lower leg/hip images: 1. 1x1cm open wound draining minimal serous fluid. No pus drainage. Minimal surrounding erythema and moderate tenderness. No induration, fluctuance or crepitus. 2. Well healing surgical incision wound. Other: Left DP/PT pulses intact Psych Appearance: grossly normal Affect: normal affect Course Vital Signs Vital signs: Vital Signs Temperature 98.3 F 03/10/21 17:27 Pulse 107 H 03/10/21 17:27 Respiratory Rate 16 03/10/21 17:27 Blood Pressure 156/95 H 03/10/21 17:27 Pulse Oximetry 98 03/10/21 17:27 Temperature 98.3 F 03/10/21 17:27 Temperature Source Skin 03/10/21 17:27 Pulse 107 H 03/10/21 17:27 Respiratory Rate 16 03/10/21 17:27 Respiratory Effort Non-Labored 03/10/21 17:27 Blood Pressure 156/95 H 03/10/21 17:27 Blood Pressure Position Sitting 03/10/21 17:27 Pulse Oximetry 98 03/10/21 17:27 Oxygen Delivery Method Room Air 03/10/21 17:27 Oxygen Flow Rate 0 03/10/21 17:27 Pain Level 10 03/10/21 17:27
[2021-03-10] MEDS: Sulfameth/Trimeth DS TAB 1 TAB PO ×2 (18:06)
[2021-03-10] MEDS: Sulfameth/Trimeth DS, 2 TABS/BTL 1 TAB PO (18:06)
[2021-03-10] MEDS: oxyCODONE 5 MG TAB PO (18:06)
[2021-03-10 18:21] VITALS: BP 120/80; PULSE 98; TEMP 36.9; O2SAT 96
== END 2021-03-10 18:26 | disposition home or self-care (01) ==
LOC: ER 18:33
PROVIDERS: Emergency Provider Physician Assistant; PCP Physician Assistant
DX: T81.31XA Disruption of external operation (surgical) wound, not elsewhere classified, initial encounter (principal); L03.116 Cellulitis of left lower limb
CPT/HCPCS: 99283

== ENCOUNTER 2021-04-15 05:06 | Inpatient (IN) | payer MEDICAID, SELFPAY ==
[2021-04-15] VITALS (115 sets, daily range): BP systolic 112–180; BP diastolic 72–121; PULSE 74–133; RESP 12–36; TEMP 36.4–36.5; O2SAT 95–100
--- NOTE | 2021-04-15 | DI.US_ITS ---
APPROVED REPORT EXAM: Comprehensive 2D, Doppler, and color-flow Echocardiogram Patient Location: ER Room/Bed: 3 Indications: Elevated troponin Other Information Study Quality: Fair. Technically limited study due to body habitus, inability to position patient. Conclusion Normal left ventricular wall thickness and chamber size. Estimated ejection fraction is 50 to 55%. Mildly reduced left ventricular function. There is hypokinesis of the inferior posterior and anteroa pical segments Normal right ventricular size and systolic function The atria are normal in size There is no structural or hemodynamically significant valvular disease Wall motion Left Ventricle The left ventricle is normal size. Left ventricular systolic function is mildly decreased. There is n ormal left ventricular wall thickness. Regional wall motion abnormalities are noted. Inferior posteri or anteroapical hypokinesis There is no ventricular septal defect visualized. LVEF is 50-55%. Right Ventricle The right ventricle is normal size. The right ventricular systolic function is normal. Atria The left atrium size is normal. The right atrium size is normal. The interatrial septum is intact wit h no evidence for an atrial septal defect. Aortic Valve The aortic valve is normal in structure. Aortic valve is trileaflet. There is no aortic valvular sten osis. No aortic regurgitation is present. Mitral Valve The mitral valve is normal in structure. No evidence of mitral valve stenosis. Trace to mild mitral r egurgitation. Tricuspid Valve The tricuspid valve is normal in structure. There is no tricuspid valve stenosis. Trace tricuspid reg urgitation. Unable to assess PA pressure. Pulmonic Valve Pulmonic valve is not well visualized. There is no pulmonic valvular stenosis. There is no pulmonic v alvular regurgitation. Great Vessels The aortic root is normal in size. Ascending aorta is not well visualized. Aortic arch is not well vi sualized. IVC is normal in size and collapses >50% with inspiration. Pericardium There is no pericardial effusion. 2D Dimensions IVSD d PLAX 0.89 cm F: 0.6-1.0 LV Vol A2C d MOD 64.3 mL LVPW d PLAX 0.85 cm F: 0.6 - 1.0 LV Vol A4C d MOD 88.2 mL LVID d PLAX 4.21 cm F: 3.8 - 5.2 LA Area A4C s MOD 11.40 cm2 LVDs 3.10 cm F: 2.2 - 3.5 LA Area A2C s MOD 13.30 cm2 Ao Root d 2.95 cm F: 2.7 - 3.3 LV EF A4C MOD 50.2 % RA Area A4C 9.02 cm2 LV EF A2C MOD 50.8 % LV EF Teichholz 50.8 % LV EF Biplane MOD 49.9 % LVEF (Singleton's) 49.94 % F: 54 - 74 SV 37.70 mL LV Volume 75.50 mL F: 46 - 106 LV Volume Index 51.01 mL/m2 F: 29 - 61 LV Vol Biplane MOD 75.5 mL FS 25.60 % M-Mode TAPSE 1.88 cm (M/F) >1.7 LV Diastology MV E' medial 0.065 (>0.07 m/s) E/A Ratio 0.8 LV E/e MED 11.50 (<14) MV E Vmax 0.75 (0.4-1.3 m/s) MV E' lateral 0.092 (>0.1 m/s) MV A Vmax 0.90 (0.4-1.3 m/s) LV E/e LAT 8.10 (<14) MV E/A Ratio 0.81 MV E/E' medial 11.51 MV E/E' lateral 8.13 Aortic Valve LVOT Area 3.10 cm2 AoV Area Vmax 2.61 cm2 LVOT Vmax 1.04 m/s THEE Mean Samson. 2.38 cm2 LVOT Mean Samson. 0.66 m/s LVOT Peak Grad 4.3 mmHg LVOT Mean Grad 2.1 mmHg LVOT VTI 0.243 m LVOT Diam s 1.95 cm AoV Vmax 1.23 m/s Velocity Ratio 0.84 AoV Mean Samson. 0.86 m/s AoV Peak Grad 6.1 mmHg LVOT SV 75.09 mL AoV Mean Grad 3.3 mmHg AoV VTI 0.240 m AoV Area VTI 3.13 cm2 Mitral Valve MV DT 173 (160-240 msec) MV PHT 50 msec MV Area PHT 4.39 cm2 MV VTI 0.215 m MV Area VTI 3.49 (4.0-6.0 cm2) Pulmonary Valve PV Vmax 0.82 (0.5-1.5 m/s) RVOT Peak Gr. 1.62 mmHg PV Peak Grad 2.7 mmHg RVOT Mean Gr. 0.80 mmHg PV Mean Grad 1.7 mmHg RVOT VTI 0.139 m PV VTI 0.161 m RVOT Vmax 0.64 m/s
--- NOTE | 2021-04-15 04:45 | RT.EKG_ITS ---
APPROVED REPORT Exam: Resting ECG Reason for Exam: unresponsive Patient Location: E HR:115 bpm ECG Measurements Heart Rate 115 AXIS MT 154 P 74 QRSd 73 QRS -9 QT 352 T 74 QTc 488 Conclusion Sinus tachycardia...rate> 99 Consider anterior infarct...Q >30mS in V2-V5 ST elevation, consider inferior injury...ST >0.08mV, II III aVF ED disagree - no ST elevation in inferior leads, if anything more MT depression inferior leads.
--- NOTE | 2021-04-15 05:15 | DI.CT_ITS ---
Exam(s) CT CHEST PE CTA EXAM: CT CHEST PE CTA CLINICAL HISTORY: tachycardia; unresponsive event. TECHNIQUE: Imaging Protocol: Axial CT angiography was performed with multi-slice acquisition and mu lti-planar and/or 3D reconstructions. CONTRAST MATERIAL: Intravenous: Omnipaque 350 Contrast volume:structured data in ml FINDINGS: Pulmonary Arteries: No evidence of filling defect to suggest pulmonary emboli. Tracheobronchial tree: Patent where visualized. Mediastinum and María: No dominant adenopathy or fluid collection. Pulmonary parenchyma: Mild paraseptal emphysema at the lung apices. No consolidation or dominant josé miguel surable mass. Pleura: No effusion or pneumothorax. Heart: The heart is not dilated. No coronary artery calcifications are seen. Aorta: Thoracic aorta non-dilated. No aneurysm. No dissection. Upper abdomen: Unremarkable. Bones: Old L1 compression fracture, unchanged in appearance. IMPRESSION: No evidence of pulmonary embolism. Clear lungs. RADIATION DOSE DELIVERED: Total DLP DATA REPOSITORY: All CT scans at this facility are submitted to the National Radiology Data Registry (NRDR) Dose Index Registry (DIR) with the [employer] (ACR). RADIATION OPTIMIZATION: All CT scans at this facility use at least one of these dose optimization te chniques: automated exposure control; mA and/or kV adjustment per patient size (includes targeted exa ms where dose is matched to clinical indication); or iterative reconstruction.
--- NOTE | 2021-04-15 05:15 | DI.CT_ITS ---
Exam(s) CT HEAD WO EXAM: CT HEAD WO CLINICAL HISTORY: unresponsive event. TECHNIQUE: Imaging Protocol: Axial computed tomography images with coronal and sagittal reformatted images were created and reviewed FINDINGS: Ventricles and Extra axial spaces: Normal in size and morphology for the patient's age. Hemorrhage: None. Cerebral parenchyma: Normal. Midline shift: None. Brainstem/Cerebellum: Normal. Calvarium: Normal. Visualized Paranasal sinuses/Mastoids: Opacification of ethmoid sinuses. Remaining sinuses clear Soft Tissues: Unremarkable. IMPRESSION: No acute intracranial process. RADIATION DOSE DELIVERED: 1005.01 mGy.cm Total DLP DATA REPOSITORY: All CT scans at this facility are submitted to the National Radiology Data Registry (NRDR) Dose Index Registry (DIR) with the [employer] (ACR). RADIATION OPTIMIZATION: All CT scans at this facility use at least one of these dose optimization te chniques: automated exposure control; mA and/or kV adjustment per patient size (includes targeted exa ms where dose is matched to clinical indication); or iterative reconstruction.
--- NOTE | 2021-04-15 05:23 | ED.GENADUL_ITS ---
Discharge Plan Disposition Patient Disposition: [facility] INPATIENT Condition: Fair Discharge Details Clinical Impression: Unresponsive episode, Elevated troponin Admit Date/Time: 04/15/21 08:33 Admit Provider: Bogdan Daugherty Attending Provider: Bogdan Daugherty Primary Care Provider: Henrry Ragland ED Provider: Bogdan Daugherty Medical Decision Making <Jerome Jimenez MD - Last Filed: 04/15/21 08:34> Patient presenting with unresponsive event at home. Some description of leg spasm/stiffening prior to event as well as incoherent after the event suggesting possible seizure. Patient tachycardic with otherwise normal vital signs. The ZOLL EKG strips were reviewed and I do not appreciate the ST elevation the machine interpreted as STEMI. Our EKG also suggesting inferior STEMI but my review if anything suggest CT depression not ST elevation. Patient is not experiencing any type of chest pain or pressure. Her neurologic exam at this time is normal. We will proceed with CT head, laboratory studies. Because of the tachycardia and unresponsive event must consider syncope and PE so will obtain CTA of the chest as well. Will maintain patient on the monitor while here. Start IV fluids. 06:30 - Patient remains unchanged clinically and continues to have no chest pain. Laboratory studies significant for white count that is elevated to 14.8 as well as hemoglobin elevated to 15.9. She has fairly significant chemistry abnormalities including an anion gap as well as low bicarb which may be related to possible seizure. Magnesium is high at 3.1. Troponin is high at 360. Repeat EKG is ordered. CT scan of the chest will be done despite bump in creatinine and decrease GFR presumably acute which should respond to IV fluid resuscitation. Possibility of PE must be ruled out. Plan repeat BMP and troponin on her first liter of LR is completed. 07:45 - Patient remains asymptomatic here and vitals have normalized. Repeat BMP is normal. Head CT normal. CTA chest normal. Repeat tropinin now 851 but repeat EKG without significant changes. Will give aspirin for now. Still think this was seizure related. Patient denies knowingly taking amphetamines. Discuss with hospitalist. Medical Records Medical records reviewed: Yes I reviewed the patient's medical records. Lab Data Lab results reviewed: Yes I reviewed the patient's lab results. ECG Data Attestation: I personally reviewed and interpreted this ECG (s) as follows: Prior ECG tracings: available for review Interpretation: see EKG <Allie Mcneill DO - Last Filed: 04/15/21 11:56> Patient not seen or evaluated by me. Please see providers note for details. HPI <Jerome Jimenez MD - Last Filed: 04/15/21 08:34> General Mode of arrival: EMS . Date/Time Provider Initiated Documentation: 04/15/21 05:19 . Limitations to Documentation: no limitations . Information obtained by: patient, EMS and RN notes reviewed . HPI Narrative: Patient presents to ED by ambulance after unresponsive event at home. EMS reports patient awake and alert but incoherent on their arrival. Coherent here reporting no recollection of what happened other than her left lower extremity spasm and it became stiff. She remembers telling her roommate to call EMS. She apparently was then unresponsive on the floor beside her bed. EMS report that she was breathing heavily when they arrived. She was tachycardic. ZOLL EKG indicate STEMI though patient has no complaint of chest pain or pressure. She denies headache. She denies any current neurologic changes. She does report abdominal discomfort, nausea, loose stool and occasional vomiting over the last 24 hours. She denies fever or cough. She is not vaccinated against Covid. She does not have history of seizures. Related Data Home Medications Medication Instructions Recorded Confirmed venlafaxine [Effexor XR] 75 mg PO DAILY 01/30/17 04/15/21 omeprazole 40 mg PO DAILY #30 cap 02/10/18 04/15/21 mirtazapine 7.5 mg tablet 7.5 mg PO QHS 01/27/21 04/15/21 acetaminophen 1,000 mg PO Q6H PRN 02/09/21 04/15/21 acetaminophen [Tylenol Extra 500 mg PO Q6H PRN #90 tab 02/09/21 04/15/21 Strength] aspirin 81 mg PO BID #60 tab 02/09/21 04/15/21 celecoxib [Celebrex] 200 mg PO BID #60 cap 02/09/21 04/15/21 ibuprofen 400 mg PO Q6H PRN 02/09/21 04/15/21 Previous Rx's Medication Instructions Recorded omeprazole 40 mg PO DAILY #30 cap 02/10/18 acetaminophen [Tylenol Extra 500 mg PO Q6H PRN #90 tab 10/19/21 Strength] aspirin 81 mg PO BID #60 tab 02/09/21 celecoxib [Celebrex] 200 mg PO BID #60 cap 02/09/21 Allergies Allergy/AdvReac Type Severity Reaction Status Date / Time No Known Allergies Allergy Verified 04/15/21 05:09 General Stated Complaint: [employer]Medical ANGELITA: 2 Review of Systems <Jerome Jimenez MD - Last Filed: 04/15/21 08:34> Narrative: 02/04 Review of Systems completed and is negative except as stated above in HPI (Systems reviewed: Const, Eyes, ENT, Resp, CV, GI, , MSK, Skin, Neuro) PFSH <Jerome Jimenez MD - Last Filed: 04/15/21 08:34> All Active Problems (Updated 04/15/21 @ 08:34 by Jerome Jimenez MD) Surgical wound dehiscence (Acute) Postoperative wound cellulitis (Acute) Unresponsive episode (Acute) Elevated troponin (Acute) Painful orthopaedic hardware (Acute) s/p removal of helical blade from TFNA DOS: 02/09/2021 Preoperative cardiovascular examination (Acute) Diverticulosis (Acute) Colon polyp (Acute) GERD (gastroesophageal reflux disease) (Chronic) Trochanteric bursitis, left hip (Acute 10/02/17) Pulmonary hypertension (Acute) pt. denies this T12 compression fracture (Chronic) Acute electrocardiogram changes (Acute) Tobacco abuse (Chronic) Muscle spasm (Acute) Radiculopathy (Acute) Chest pain (Acute) Pt. states this is not accurate, pt. states she had pain in side near her ribs, pt. states she was told it was a muscle spasm Medical History Anxiety Bilateral calcaneal fractures Closed left hip fracture Depression History of ETOH abuse IUD surveillance (01/13/15) Menorrhagia Status post fracture of femur Surgical History (Updated 02/22/21 @ 11:12 by Laquita Gillis) section x 3 H/O colonoscopy (~05/2019) Hyperplastic polyp History of repair of hip fracture left femur, heel Ligation of fallopian tube 1989 Family History Mother Diabetes Osteoporosis Hyperlipidemia Social History Smoking/Tobacco Use Status: Current every day Tobacco Type: cigarettes Smoking packs per day: 1 Smoking cigarettes per day: 20.0 Years smoked: 40 Smoking pack- years: 40.00 Smoking risk assessment performed?: Yes Alcohol Intake: current Alcohol Intake frequency: a few times a month Alcohol type: beer Drug use: Daily Substance use type: marijuana Details: History of previous heroin, cocaine, crack, Kaylene, meth Last use of any of these meds was over 3 years Denies IV drug use States smoked marijuana today 02.09.21 Current gender identity: female Seatbelt use: always Do you feel safe at home: Yes Do you feel safe in your relationship?: Yes Female Reproductive History Menstrual control method: progestin IUCD, permanent sterilization and other History History 5 Para 3 Hx # Term Pregnancies Multiple births Hx # Pregnancies Ectopic pregnancies AB induced Hx Number of Living Children AB spontaneous Exam <Jerome Jimenez MD - Last Filed: 04/15/21 08:34> Narrative Exam Narrative: Const: WDWN female in NAD. HEENT: NC/AT. Normal facial exam. No tongue injury/bite. Eyes: Normal conjunctiva and sclera. PERRL and EOMI Neck: Supple. Trachea midline. Lungs: Normal respiratory effort. Lungs are clear. Cor: RRR without murmur/gallop. Good radial pulses. Tachy GI: Soft. NT/ND. No guarding or rebound. Neuro: A+O x 3. Normal speech, mentation, gait. Cranial nerves II - XII grossly intact. No gross motor or sensory deficit. Ext: No C/C/E. Skin: Warm and dry without rash. Course <Jerome Jimenez MD - Last Filed: 04/15/21 08:34> Vital Signs Vital signs: Vital Signs Temperature 97.5 F L 04/15/21 04:58 Pulse 128 H 04/15/21 04:58 Respiratory Rate 19 04/15/21 04:58 Blood Pressure 129/72 04/15/21 04:58 Pulse Oximetry 98 04/15/21 04:58 Temperature 97.5 F L 04/15/21 04:58 Temperature Source Temporal Artery Scan 04/15/21 04:58 Pulse 128 H 04/15/21 04:58 Respiratory Rate 19 04/15/21 04:58 Respiratory Effort 04/15/21 05:10 Blood Pressure 129/72 04/15/21 04:58 Blood Pressure Position Sitting 04/15/21 04:58 Pulse Oximetry 98 04/15/21 04:58 Pain Level 0 04/15/21 04:58
[2021-04-15] MEDS: Lactated Ringers 1,000 ML 200 ML IV (05:34)
[2021-04-15 05:52] LABS: Abs Immature Grans 0.08 10^3/uL (0.0-0.06); Absolute Basophil Count 0.03 10^3/uL (0.0-0.2); Absolute Lymphocyte Count 1.85 10^3/uL (1.2-3.4); Absolute Monocyte Count 0.41 10^3/uL (0.1-0.8); Absolute Neutrophil Count 12.45 10^3/uL (1.2-6.7); Basophils % 0.2; HCT 49.1 % (36.0-46.0); HGB 15.9 g/dL (11.2-15.7); Immature Grans % 0.5; Lymphocytes % 12.5; MCH 29.3 pg (27.0-33.0); MCHC 32.4 % (32.0-36.0); MCV 90.4 fL (80-95); MPV 9.4 fL (8.0-11.0); Monocytes % 2.8; Nucleated RBC 0 %; Platelet Count 423 10^3/uL (130-400); RBC 5.43 10^6/uL (3.93-5.22); RDW-SD 43.8 fL; WBC 14.82 10^3/uL (4.4-10.8)
[2021-04-15 06:12] LABS: ALT 59 U/L (14-59); AST 21 U/L (15-37); Albumin 4.4 g/dL (3.4-5.0); Alkaline Phosphatase 147 U/L (46-116); Anion Gap 26.1 mmol/L (3-11); BUN 15 mg/dL (7-18); Bilirubin, Total 0.3 mg/dL (0.2-1.0); CO2 14.9 mmol/L (21.0-32.0); CREATININE 1.6 mg/dL (0.55-1.02); Calcium 10.2 mg/dL (8.5-10.1); Chloride 96 mmol/L (98-107); Estimated GFR 33.72 (mL/min/1.73m2); Glucose 215 mg/dL (74-106); Magnesium 3.1 mg/dL (1.8-2.4); Potassium 3.4 mmol/L (3.5-5.1); Sodium 137 mmol/L (136-145)
[2021-04-15 06:14] LABS: Troponin I 360 ng/L (<or=60)
[2021-04-15 06:14] LABS: Bilirubin Negative (Negative); Blood Moderate (Negative); Clarity Clear (Clear); Glucose Negative (Negative); Ketones Trace mg/dL (Negative); Leukocyte Esterase Trace (Negative); Nitrite Negative (Negative); Specific Gravity >= 1.030 (1.005-1.025); Urobilinogen 0.2 EU/dL (Up TO 0.2)
--- NOTE | 2021-04-15 06:15 | RT.EKG_ITS ---
APPROVED REPORT Exam: Resting ECG Reason for Exam: elevated troponin Patient Location: E HR:87 bpm ECG Measurements Heart Rate 87 AXIS NM 174 P 72 QRSd 80 QRS 8 QT 397 T 66 QTc 477 Conclusion Sinus rhythm...normal P axis, V-rate 60- 99 ST elev, probable normal early repol pattern...ST elevation, age<55 Still do not see any ST elevation. Besides decreased rate no significant change from earlier. Again , probable NM depression in inferior leads.
[2021-04-15 06:29] LABS: *AMPHETAMINES SCREEN URINE Positive (Negative); *BARBITURATES SCREEN URINE Negative (Negative); *BENZODIAZEPINES SCREEN URINE Negative (Negative); Cannabinoids THC Positive (Negative); Cocaine Screen,Urine Negative (Negative); METHADONE URINE SCREEN Negative (Negative); OPIATES URINE SCREEN Negative (Negative)
[2021-04-15 06:33] LABS: Tricyclic Antidepressants Negative (Negative)
[2021-04-15 06:37] LABS: Bacteria Few HPF (Negative); Casts 3-5 Hyaline LPF (Negative); Crystals Few Amorphous HPF (Negative); Epithelial Cells Moderate HPF (Negative); Mucus Heavy (Negative)
[2021-04-15 06:38] LABS: C & S Indicated? No/Sq. Contamination
[2021-04-15] MEDS: Omnipaque 350 MG/ML 100 ML BTL IJ (06:52)
--- NOTE | 2021-04-15 07:04 | DI.VRAD_ITS ---
PROCEDURE INFORMATION: Exam: CT Head Without Contrast Exam date and time: 04/15/2021 5:22 AM Age: 51 years old Clinical indication: Other: Unresponsive event TECHNIQUE: Imaging protocol: Computed tomography of the head without contrast. COMPARISON: CT HEAD AND CSPINE W/O CONTRAST 01/30/2017 4:09 AM FINDINGS: Brain: Mild volume loss No hemorrhage. Unremarkable white matter. No mass effect. Cerebral ventricles: No ventriculomegaly. Paranasal sinuses: Visualized sinuses are unremarkable. No fluid levels. Mastoid air cells: Visualized mastoid air cells are well aerated. Bones/joints: Unremarkable. No acute fracture. Soft tissues: Unremarkable. IMPRESSION: No acute intracranial abnormality. Dictated and Authenticated by: Luis Hopkins MD. Ordering:LEELEE Cano MD
[2021-04-15 07:14] LABS: Anion Gap 10.1 mmol/L (3-11); BUN 14 mg/dL (7-18); CO2 26.9 mmol/L (21.0-32.0); CREATININE 1.1 mg/dL (0.55-1.02); Calcium 9.3 mg/dL (8.5-10.1); Chloride 99 mmol/L (98-107); Estimated GFR 51.96 (mL/min/1.73m2); Glucose 113 mg/dL (74-106); Potassium 3.7 mmol/L (3.5-5.1); Sodium 136 mmol/L (136-145)
[2021-04-15 07:25] LABS: Troponin I 851 ng/L (<or=60)
--- NOTE | 2021-04-15 07:36 | DI.VRAD_ITS ---
PROCEDURE INFORMATION: Exam: CTA Chest With Contrast Exam date and time: 04/15/2021 5:22 AM Age: 51 years old Clinical indication: Other: Unresponsive event TECHNIQUE: Imaging protocol: Computed tomographic angiography of the chest with contrast. 3D rendering (Not supervised by radiologist): MIP and/or 3D reconstructed images were created by the technologist. COMPARISON: CT Private^PE (Adult) 02/10/2018 2:09 AM FINDINGS: Pulmonary arteries: No evidence of pulmonary embolism. Aorta: Unremarkable. No aortic aneurysm. No aortic dissection. Lungs: Mild paraseptal emphysematous changes. No focal infiltrate. Pleural spaces: Unremarkable. No pneumothorax. No pleural effusion. Heart: Unremarkable. No cardiomegaly. No pericardial effusion. Lymph nodes: Unremarkable. No enlarged lymph nodes. Bones/joints: Chronic compression deformity of L1. No acute fracture. Soft tissues: Unremarkable. IMPRESSION: No acute findings. Dictated and Authenticated by: Samuel Yung MD. Ordering:LEELEE Cano MD
[2021-04-15] MEDS: Aspirin 81 MG CHEW 324 MG CH (08:24)
[2021-04-15 08:40] LABS: Source Nasal/Nares
[2021-04-15] MEDS: diphenhydrAMINE 25 MG CAP PO (09:01)
[2021-04-15] MEDS: Enoxaparin 40 MG/0.4 ML SYR SC (09:02)
[2021-04-15 09:29] LABS: COVID-19 PCR Negative (Negative)
[2021-04-15 09:33] LABS: ESR 22 mm/hr (0-30)
[2021-04-15 09:39] LABS: C-Reactive Protein 0.15 mg/dL (0.0-0.3)
[2021-04-15 09:43] LABS: Creatine Kinase 123 U/L (26-192)
[2021-04-15 09:56] LABS: Prothrombin Time 10.4 sec (9.3-11.0)
[2021-04-15 10:08] LABS: Troponin I 1593 ng/L (<or=60)
--- NOTE | 2021-04-15 10:13 | HPE_ITS ---
Date of service: 04/15/21 Time of Service: 10:13 Assessment and Plan Assessment and plan (1) Syncope: Status: Chronic Assessment and plan: Patient had an episode of syncope that was witnessed at home which may have been a seizure or may have been secondary to a cardiac arrhythmia. Nevertheless she presented with acute kidney injury as well as elevated troponin levels. EKG initially suggested a STEMI however both bowling floor manager and the ED doctor disagree with the computer interpretation. Nevertheless the patient has had rising troponin levels that meet the criteria for type II non-ST elevation myocardial infarction. Patient is currently pain- free denies any dyspnea. She has been ruled out for PE. CRP and ESR are not consistent with a myopericarditis. Echocardiogram did not show a pericardial effusion. However the patient had some regional wall motion abnormalities on her echocardiogram which is consistent with an NSTEMI. Echo shows mildly reduced LV systolic function with a EF of 50 to 55% with some hypokinesis of the inferior posterior and anteroapical segments. Patient was already on aspirin and will be put on systemic heparin for 48 hours. Patient will be started on beta-blockers and atorvastatin. It is suspected that the etiology of her acute event was secondary to some illicit medication she had there was given or had chosen to take. Patient denies the use of recreational drugs but admits that she was given some medication for headache by her son. I asked her to try to find out the name of the medication that her son gave her. If this was some kind of a stimulant or amphetamine it would explain her positive drug screen as well as her tachycardia and her elevated troponin levels. We will obtain an EEG to evaluate for any epileptogenic focus and monitor for any seizures. Critical care time spent evaluating the patient including interview and examination and review of her chart as well as discussion with the ED physician and the ICU nurses included over 60 minutes. Qualifiers: Syncope type: unspecified Qualified Code(s): R55 - Syncope and collapse (2) Non-ST elevation DE (NSTEMI): Status: Acute Assessment and plan: As above (3) Dehydration: Status: Acute Assessment and plan: Patient's initial labs were consistent with hemoconcentration and dehydration. Her SANTIAGO quickly resolved with IV fluids given during the emergency department. This point she is able to eat and drink adequately and therefore I do not feel she needs any further IV fluid therapy. History of Present Illness History of Present Illness Chief Complaint: Syncope Narrative: 51-year-old female with a history of depression, alcohol abuse, diverticulosis, previous closed left hip fracture status post repair, GERD, tobacco abuse who was brought to the ED at [facility] via EMS after experiencing an episode of unresponsiveness at home. Patient recalls her left lower extremity going into spasm and becoming stiff and then calling her roommate to call EMS. She reportedly became unresponsive at her bedside and on EMS arrival patient had labored breathing and was tachycardic. ZOLL EKG indicated a STEMI although the patient had no complaints of chest pain or pressure. Patient denied any other neurologic symptoms and no headache or chest discomfort. She did report abdominal discomfort and nausea and loose bowel movements for the last 24 hours. Patient has no prior history of syncope and no history of seizures. She is unvaccinated against COVID-19. Dr. Jerome Jimenez, ED physician, performed a work-up including routine labs CT scan of her head as well as serial EKGs and chest CT. CT of the chest showed no pulmonary embolism. Lung byrd were clear with just some mild paraseptal emphysema at the lung apices. No coronary calcifications are seen heart is not dilated and there is no aneurysm. Patient has old L1 compression fracture. Head CT showed no acute intracranial process. Initial EKG on arrival at 5:08 AM demonstrates sinus tachycardia rate of 115 bpm computer reading is suggesting biatrial enlargement as well as consideration of anterior infarct and inferior injury. ED doctor disagreed with this felt there was no ST elevation inferior leads and if anything there is NV depression in the inferior leads. Repeat ECG at 653 showed resolution of the tachycardia rhythm was sinus rhythm rate of 87 bpm again computer interpretation suggested ST elevation probably normal early repolarization pattern. Given the ER physician did not see ST elevation and again suggested probable NV depression in inferior leads. [employer] D[employer] Instructor endorsed both readings by the ED physician. Labs were remarkable for an elevated leukocytosis of 14,000 on admission hemoglobin was 15.9 g hematocrit 49% suspicious for hemoconcentration. Initial chemistry profile showed a low potassium of 3.4 metabolic acidosis with a CO2 level of 14.9 anion gap of 26 and a creatinine 1.6 with a normal BUN of 15. Glucose is elevated at 215 calcium is elevated 10.2 magnesium is elevated 3.1. Initial troponin level was elevated at 360 ng/L and is still rising with the second level of 851 at 6:58 AM and 1593 at 9:35 AM. Since I spoke to Dr. Jimenez I ordered a CRP and a sed rate and a CK level. These of all come back normal. ESR was 22, CRP 0.15, CK level 123. Since I spoke with Dr. Jimenez I put an order for stat echocardiogram. Quality of study was fair and technically limited due to body habitus. However the reading was normal left ventricular wall thickness and chamber size with an ejection fraction of 50 to 55% there was some hypokinesis of the inferior posterior and anteroapical segments with normal right ventricular size and systolic function. Atria are normal in size and there is no structural or hemodynamically significant valvular disease. Her UDS is positive for amphetamines and THC. Patient admits to regular marijuana use but denies any other illicit drug use but admits that she was given some pills for her headache these were pills that were prescribed to her son's . She does not know what the medications were as her son gave her the pills. Review of Systems All systems reviewed & are unremarkable except as noted in HPI and below Constitutional Constitutional: Denies chills and Denies fever(s) Cardiovascular Cardiovascular: Denies chest pain, Denies chest pain at rest, Reports syncope, Denies dyspnea, Denies dyspnea on exertion and Denies orthopnea Respiratory Respiratory: Denies cough, Denies dyspnea and Denies dyspnea on exertion Musculoskeletal Musculoskeletal: Reports muscle cramps Neurologic Neurologic: Reports syncope and Reports other (Muscle twitching in her left leg) [facility] All Active Problems (Updated 04/15/21 @ 12:11 by Bogdan Daugherty) Dehydration (Acute) Non-ST elevation DE (NSTEMI) (Acute) Syncope (Chronic) Surgical wound dehiscence (Acute) Postoperative wound cellulitis (Acute) Unresponsive episode (Acute) Elevated troponin (Acute) Painful orthopaedic hardware (Acute) s/p removal of helical blade from TFNA DOS: 02/09/2021 Preoperative cardiovascular examination (Acute) Diverticulosis (Acute) Colon polyp (Acute) GERD (gastroesophageal reflux disease) (Chronic) Trochanteric bursitis, left hip (Acute 10/02/17) Pulmonary hypertension (Acute) pt. denies this T12 compression fracture (Chronic) Acute electrocardiogram changes (Acute) Tobacco abuse (Chronic) Muscle spasm (Acute) Radiculopathy (Acute) Chest pain (Acute) Pt. states this is not accurate, pt. states she had pain in side near her ribs, pt. states she was told it was a muscle spasm Medical History Anxiety Bilateral calcaneal fractures Closed left hip fracture Depression History of ETOH abuse IUD surveillance (01/13/15) Menorrhagia Status post fracture of femur Surgical History section x 3 H/O colonoscopy (~05/2019) Hyperplastic polyp History of repair of hip fracture left femur, heel Ligation of fallopian tube 1989 Family History Mother Diabetes Osteoporosis Hyperlipidemia Social History Smoking/Tobacco Use Status: Current every day Tobacco Type: cigarettes Smoking packs per day: 1 Smoking cigarettes per day: 20.0 Years smoked: 40 Smoking pack-years: 40.00 Smoking risk assessment performed?: Yes Alcohol Intake: current Alcohol Intake frequency: a few times a month Alcohol type: beer Drug use: Daily Substance use type: marijuana Details: History of previous heroin, cocaine, crack, Kaylene, meth Last use of any of these meds was over 3 years Denies IV drug use States smoked marijuana today 02.09.21 Current gender identity: female Seatbelt use: always Do you feel safe at home: Yes Do you feel safe in your relationship?: Yes Female Reproductive History Menstrual control method: progestin IUCD, permanent sterilization and other History History 5 Para 3 Hx # Term Pregnancies Multiple births Hx # Pregnancies Ectopic pregnancies AB induced Hx Number of Living Children AB spontaneous Meds Allergies and Home Medications Allergies Allergy/AdvReac Type Severity Reaction Status Date / Time No Known Allergies Allergy Verified 04/15/21 05:09 Home Medications Medication Instructions Recorded Confirmed Type venlafaxine [Effexor XR] 75 mg PO DAILY 01/30/17 04/15/21 History omeprazole 40 mg PO DAILY #30 cap 02/10/18 04/15/21 Rx mirtazapine 7.5 mg tablet 7.5 mg PO QHS 01/27/21 04/15/21 History acetaminophen 1,000 mg PO Q6H PRN 02/09/21 04/15/21 History acetaminophen [Tylenol Extra 500 mg PO Q6H PRN #90 tab 02/09/21 04/15/21 Rx Strength] aspirin 81 mg PO BID #60 tab 02/09/21 04/15/21 Rx celecoxib [Celebrex] 200 mg PO BID #60 cap 02/09/21 04/15/21 Rx ibuprofen 400 mg PO Q6H PRN 02/09/21 04/15/21 History Exam Narrative Exam Narrative: Thin middle-aged female looks older than her stated age of 51. HEENT is remarkable for poor dentition but I do not see any purulent discharge from her gums. She is missing several teeth and has had cavities filled in her other teeth. Oropharynx is noninjected no exudate Neck is supple no JVD normal carotid pulses no thyromegaly no cervical lymphadenopathy Lungs are clear to auscultation Heart regular rate and rhythm without murmur rub or gallop Abdomen is scaphoid soft nontender no bruits no palpable masses no organomegaly Extremities without peripheral cyanosis or edema. Neuro exam grossly intact no focal cranial nerve deficits no focal motor deficits no focal sensory deficits. I did not detect any tremors and did not detect any myoclonus in her extremities. Results Imaging Chest x-ray: report reviewed and image reviewed CT scan - chest: report reviewed (No evidence of pulmonary embolism. Clear lungs.) EKG: report reviewed and image reviewed Imaging Studies: CT of the head without contrast demonstrated the following:No acute intracranial process Labs Result diagrams: 04/15/21 05:15 04/15/21 06:58 Labs: Laboratory Results - last 24 hr 04/15/21 04/15/21 04/15/21 05:15 05:15 06:00 WBC 14.82 H RBC 5.43 H Hgb 15.9 H Hct 49.1 H MCV 90.4 MCH 29.3 MCHC 32.4 RDW 13.0 Plt Count 423 H MPV 9.4 Immature Gran % 0.5 Neutrophils % 84.0 Lymphocytes % 12.5 Monocytes % 2.8 Eosinophils % 0.0 Basophils % 0.2 Nucleated RBC % 0 Absolute Neutrophils 12.45 H Absolute Lymphocytes 1.85 Absolute Monocytes 0.41 Absolute Eosinophils 0.00 Absolute Basophils 0.03 ESR PT INR Sodium 137 Potassium 3.4 L Chloride 96 L Carbon Dioxide 14.9 L Anion Gap 26.1 H BUN 15 Creatinine 1.6 H Estimated GFR/1.73 m2 33.72 Glucose 215 H Calcium 10.2 H Magnesium 3.1 H Total Bilirubin 0.3 AST 21 ALT 59 Alkaline Phosphatase 147 H Creatine Kinase Troponin I 360 H* C-Reactive Protein Total Protein 9.0 H Albumin 4.4 Urine Color Urine Clarity Urine pH Ur Specific [place] Urine Protein Urine Ketones Urine Blood Urine Nitrite Urine Bilirubin Urine Urobilinogen Ur Leukocyte Esterase Urine RBC Urine WBC Ur Epithelial Cells Urine Crystals Urine Bacteria Urine Casts Urine Mucus Ur Culture Indicated? Urine Glucose Urine Opiates Screen Negative Urine Methadone Screen Negative Ur Barbiturates Screen Negative Ur Tricyclics Screen Negative Ur Amphetamines Screen Positive A U Benzodiazepines Scrn Negative Urine Cocaine Screen Negative Ur THC Screen Positive A COVID-19 Source SARS-CoV-2 (PCR) 04/15/21 04/15/21 04/15/21 06:00 06:58 06:58 WBC RBC Hgb Hct MCV MCH MCHC RDW Plt Count MPV Immature Gran % Neutrophils % Lymphocytes % Monocytes % Eosinophils % Basophils % Nucleated RBC % Absolute Neutrophils Absolute Lymphocytes Absolute Monocytes Absolute Eosinophils Absolute Basophils ESR PT INR Sodium 136 Potassium 3.7 Chloride 99 Carbon Dioxide 26.9 Anion Gap 10.1 BUN 14 Creatinine 1.1 H D Estimated GFR/1.73 m2 51.96 Glucose 113 H D Calcium 9.3 Magnesium Total Bilirubin AST ALT Alkaline Phosphatase Creatine Kinase Troponin I 851 H* C-Reactive Protein Total Protein Albumin Urine Color Yellow Urine Clarity Clear Urine pH 7.0 Ur Specific [place] >= 1.030 H Urine Protein >=300 H Urine Ketones Trace H Urine Blood Moderate H Urine Nitrite Negative Urine Bilirubin Negative Urine Urobilinogen 0.2 Ur Leukocyte Esterase Trace H Urine RBC 10-20 H Urine WBC 3-5 Ur Epithelial Cells Moderate Urine Crystals Few Amorphous Urine Bacteria Few Urine Casts 3-5 Hyaline Urine Mucus Heavy Ur Culture Indicated? No/Sq. Contamination Urine Glucose Negative Urine Opiates Screen Urine Methadone Screen Ur Barbiturates Screen Ur Tricyclics Screen Ur Amphetamines Screen U Benzodiazepines Scrn Urine Cocaine Screen Ur THC Screen COVID-19 Source SARS-CoV-2 (PCR) 04/15/21 04/15/21 04/15/21 06:58 06:58 06:58 WBC RBC Hgb Hct MCV MCH MCHC RDW Plt Count MPV Immature Gran % Neutrophils % Lymphocytes % Monocytes % Eosinophils % Basophils % Nucleated RBC % Absolute Neutrophils Absolute Lymphocytes Absolute Monocytes Absolute Eosinophils Absolute Basophils ESR 22 PT INR Sodium Potassium Chloride Carbon Dioxide Anion Gap BUN Creatinine Estimated GFR/1.73 m2 Glucose Calcium Magnesium Total Bilirubin AST ALT Alkaline Phosphatase Creatine Kinase 123 Troponin I C-Reactive Protein 0.15 Total Protein Albumin Urine Color Urine Clarity Urine pH Ur Specific [place] Urine Protein Urine Ketones Urine Blood Urine Nitrite Urine Bilirubin Urine Urobilinogen Ur Leukocyte Esterase Urine RBC Urine WBC Ur Epithelial Cells Urine Crystals Urine Bacteria Urine Casts Urine Mucus Ur Culture Indicated? Urine Glucose Urine Opiates Screen Urine Methadone Screen Ur Barbiturates Screen Ur Tricyclics Screen Ur Amphetamines Screen U Benzodiazepines Scrn Urine Cocaine Screen Ur THC Screen COVID-19 Source SARS-CoV-2 (PCR) 04/15/21 04/15/21 04/15/21 08:26 09:35 09:35 WBC RBC Hgb Hct MCV MCH MCHC RDW Plt Count MPV Immature Gran % Neutrophils % Lymphocytes % Monocytes % Eosinophils % Basophils % Nucleated RBC % Absolute Neutrophils Absolute Lymphocytes Absolute Monocytes Absolute Eosinophils Absolute Basophils ESR PT 10.4 INR 1.0 Sodium Potassium Chloride Carbon Dioxide Anion Gap BUN Creatinine Estimated GFR/1.73 m2 Glucose Calcium Magnesium Total Bilirubin AST ALT Alkaline Phosphatase Creatine Kinase Troponin I 1593 H* C-Reactive Protein Total Protein Albumin Urine Color Urine Clarity Urine pH Ur Specific [place] Urine Protein Urine Ketones Urine Blood Urine Nitrite Urine Bilirubin Urine Urobilinogen Ur Leukocyte Esterase Urine RBC Urine WBC Ur Epithelial Cells Urine Crystals Urine Bacteria Urine Casts Urine Mucus Ur Culture Indicated? Urine Glucose Urine Opiates Screen Urine Methadone Screen Ur Barbiturates Screen Ur Tricyclics Screen Ur Amphetamines Screen U Benzodiazepines Scrn Urine Cocaine Screen Ur THC Screen COVID-19 Source Nasal/Nares SARS-CoV-2 (PCR) Negative Last Vital Signs Temp 36.4 C L 04/15/21 04:58 Pulse 87 04/15/21 09:54 Resp 13 04/15/21 09:54 BP 154/99 H 04/15/21 09:54 Pulse Ox 98 04/15/21 09:54
--- NOTE | 2021-04-15 10:15 | RT.EKG_ITS ---
APPROVED REPORT Exam: Resting ECG Reason for Exam: elevated troponin Patient Location: I HR:91 bpm ECG Measurements Heart Rate 91 AXIS [place] 168 P 71 QRSd 78 QRS 13 QT 389 T 63 QTc 480 Conclusion Sinus rhythm...normal P axis, V-rate 60- 99
[2021-04-15 11:19] LABS: PTT Activated 25.7 sec (21.0-27.5)
[2021-04-15] MEDS: Normal Saline Flush 10 ML SYR IVP ×2 (12:07→13:29)
[2021-04-15] MEDS: Docusate Sodium 100 MG CAP PO (12:07)
[2021-04-15] MEDS: diazePAM 2 MG TAB PO (12:09)
--- NOTE | 2021-04-15 13:00 | RT.EKG_ITS ---
APPROVED REPORT Exam: Resting ECG Reason for Exam: rising troponin; nausea Patient Location: I HR:87 bpm ECG Measurements Heart Rate 87 AXIS [place] 155 P 57 QRSd 85 QRS 30 QT 378 T 58 QTc 456 Conclusion Sinus rhythm...normal P axis, V-rate 60- 99 Poor R wave progression similar to previous Mild diffuse ST elevation, new since EKG of 6 AM
[2021-04-15 13:03] LABS: Troponin I 2513 ng/L (<or=60)
[2021-04-15] MEDS: Ondansetron 4 MG/2 ML VIAL IVP (13:28)
[2021-04-15] MEDS: Metoprolol 5 MG/5 ML VIAL IVP ×3 (13:28→14:17)
--- NOTE | 2021-04-15 13:41 | NUR.NOTE ---
04/15/21 1335: EKGs faxed to the [facility] [place], [place] transfer center per request of Dr. Daugherty.Nursing Note:
[2021-04-15] MEDS: Labetalol 100 MG/20 ML VIAL 20 MG IVP (14:59)
--- NOTE | 2021-04-15 15:07 | W.PM.DS.N ---
Date of service: 04/15/21 Time of Service: 15:07 DS: Diagnosis Discharge Diagnosis (1) Non-ST elevation LA (NSTEMI): Status: Acute (2) Syncope: Status: Acute (3) Dehydration: Status: Resolved Discharge Plan Disposition Patient Disposition: [facility] Condition: Serious Discharge Details Reason For Visit: Syncope,Elevated Troponin Admit Date/Time: 04/15/21 08:33 Admit Provider: Bogdan Daugherty Attending Provider: Bogdan Daugherty Primary Care Provider: Henrry Ragland Hospital Course Hospital Course: 51-year-old female with history of depression diverticulosis remote history of alcohol abuse, chronic tobacco use 1 pack/day who presented to [facility] via EMS after a syncopal spell at home that been associated with some nausea and left leg spasm. This is been preceded in the last 24 hours with some nausea and loose bowel movements and vague abdominal discomfort. Patient has no history of seizures and no history of exertional chest pain. She was worked up in the ED including CT scan of her head that showed no acute intracranial abnormalities and a CT scan of her chest that showed no pulmonary embolism and no aneurysm. Lung byrd were clear with just some mild paraseptal emphysema at the lung apices. No coronary calcifications were seen and there is no cardiomegaly. Serial EKGs and lab work was performed. See my admission H&P for details and see the ER doctor's note for details. In summary her admission EKG at 5:08 AM demonstrates sinus tachycardia rate of 115 bpm and the computer reading suggested biatrial enlargement as well as consideration for an anterior infarct and inferior injury pattern. ED doctor disagreed and felt there was no ST elevation in the inferior leads and if anything there is IL depression in inferior leads. However repeat ECG at 653 showed resolution of the tachycardia but her rhythm is now sinus rhythm 87 bpm and the computer interpretation again suggested ST elevation possible early repolarization pattern. Again the ER physician did not agree that there was ST elevation. Both initial EKG readings were endorsed by the health services information specialist to over read the ED physicians readings. Nevertheless the patient presented with a leukocytosis of 14,000 hemoglobin 15.9 g hematocrit 49% all suspicious for hemoconcentration and she had elevated anion gap of 26 and creatinine 1.6 and a BUN of 15 and her CO2 level was 14.9. She was given IV fluids initially in the ER which brought her creatinine down to normal and resolved her anion gap acidosis. However her initial troponin was elevated at 360 ng/L (normal levels less than 60) and a repeat level taken at 6:58 AM was even higher yet at 851. When I accepted her for admission she was free of any chest pain or dyspnea and she was admitted initially to the intensive care unit for further evaluation of nonspecific troponin I elevation levels in the setting of syncope. Since arrival her troponin levels have climbed even further. Repeat level at 9:35 AM was 1593 I did check an ESR CRP and CK levels all of which were normal. ESR was 22, CRP 0.15 and CK level 123. Since that time I had ordered a stat echocardiogram and have repeated her EKGs. Echocardiogram showing some wall motion abnormalities. Study the quality was fair and technically limited due to body habitus. Nevertheless the left ventricular wall thickness and chamber size was normal with a borderline low EF of 50 to 55% but with some hypokinesis of the inferior, posterior, anteroapical segments but with normal right ventricular size and systolic function. Atria were normal in size and there is no hemodynamically significant valvular disease. Since that time I have repeated couple more EKGs and they are showing some ST elevation in inferolateral leads II, III, aVF as well as V4 through V6. She is still free of any chest pain but has recurrent nausea and vague abdominal discomfort. I did a [id number] ultrasound of her abdomen and did not see any aneurysm. I discussed her case with the appraiser art on-call [facility] Dr. Rolan Issa who reviewed her EKGs and discussed her case with me and after lengthy discussion he agreed that the patient should be transferred to [facility] for further evaluation possible cardiac catheterization later this afternoon. However after discussing case with his interventional cardiology attending they raised the possibility of whether she could have an abdominal aortic aneurysm dissection. I went in to reevaluate the patient and found she has no back pain she has some vague abdominal queasiness but no sharp abdominal pain. That is when I went in and did a POCUS exam of her abdomen using a SonoSite PX phased-array probe in the abdominal setting. I did not see any dissecting aortic aneurysm. We are going to get a CTA of her abdomen prior to transfer to [facility] however bed assignment had already been made and transported been called prior to my second discussion with Dr. Issa. Patient was treated with Lopressor 5 mg x 3 doses for an elevated systolic blood pressure in the 180s which promptly brought her systolic blood pressure down into the 150s. At that point I started on a labetalol drip. [facility] D[facility] flight is on their way to transport the patient to [facility] where she will be accepted to the service of Dr. Rangel Herrera. Home Meds and New Rx's Prescriptions: No Action mirtazapine 7.5 mg tablet 7.5 mg PO QHS RF: 0 venlafaxine [Effexor XR] 75 MG capsule,extended release 24hr 75 mg PO DAILY RF: 0 omeprazole 40 mg capsule,delayed release(DR/EC) 40 mg PO DAILY Qty: 30 RF: 0 aspirin 81 mg tablet,delayed release (DR/EC) 81 mg PO BID Qty: 60 RF: 0 celecoxib [Celebrex] 200 mg capsule 200 mg PO BID Qty: 60 RF: 0 acetaminophen [Tylenol Extra Strength] 500 mg tablet 500 mg PO Q6H PRNQty: 90 RF: 0 acetaminophen 500 mg Tablet 1,000 mg PO Q6H PRNRF: 0 ibuprofen 200 mg Tablet 400 mg PO Q6H PRNRF: 0 Discharge Instructions Activity:: bedrest Diet:: NPO Discharge Orders Discharge Orders: Discharge Order (Routine); Ordered 04/15/21 Ordered By: Bogdan Daugherty DS: Summary Time Spent with Patient providing and/or coordinating discharge services: Greater than 30 minutes Status at Discharge Functional status at discharge: independent ambulation Overall status at discharge: patient is not back to baseline Mental Status: mental status grossly normal Speech and Movement: speech and movement normal Mood: congruent mood Affect: normal affect Exam Narrative Exam Narrative: Thin middle-aged female looks older than her stated age of 51. HEENT is remarkable for poor dentition but I do not see any purulent discharge from her gums. She is missing several teeth and has had cavities filled in her other teeth. Oropharynx is noninjected no exudate Neck is supple no JVD normal carotid pulses no thyromegaly no cervical lymphadenopathy Lungs are clear to auscultation Heart regular rate and rhythm without murmur rub or gallop Abdomen is scaphoid soft nontender no bruits no palpable masses no organomegaly Extremities without peripheral cyanosis or edema. Neuro exam grossly intact no focal cranial nerve deficits no focal motor deficits no focal sensory deficits. I did not detect any tremors and did not detect any myoclonus in her extremities. Psych Mental Status: mental status grossly normal Speech and Movement: speech and movement normal Mood: congruent mood Affect: normal affect DS: Data Vitals/I&O Vitals and I&O: Vital Signs Temperature 36.4 C L 04/15/21 10:15 Temperature Source Temporal Artery Scan 04/15/21 10:15 Pulse 77 04/15/21 14:17 Pulse 87 04/15/21 09:50 Respiratory Rate 22 04/15/21 10:15 Respiratory Effort 04/15/21 10:15 Respiratory Depth Normal 04/15/21 10:15 Respiratory Pattern Normal 04/15/21 10:15 Blood Pressure 154/96 H 04/15/21 14:17 Blood Pressure Mean 107 04/15/21 10:15 Blood Pressure Position Sitting 04/15/21 10:15 Pulse Oximetry 96 04/15/21 10:15 Oxygen Delivery Method Room Air 04/15/21 10:15 Oxygen Flow Rate 0 04/15/21 10:15 Pain Level 0 04/15/21 10:15 Intake & Output 04/14/21 04/15/21 04/15/21 23:59 11:59 23:59 Intake Total 1000 / 1000 Output Total 200 / 200 Balance 1000 / 800 -200 / 800 Weight 56.5 kg Intake: IV 1000 / 1000 Output: Urine 200 / 200 Other: Comment mixed with liquid stool Data Completed and Pending Labs on day of discharge: Labs from last 24 hours 04/15/21 04/15/21 04/15/21 12:25 09:35 09:35 WBC RBC Hgb Hct MCV MCH MCHC RDW Plt Count MPV Immature Gran % Neutrophils % Lymphocytes % Monocytes % Eosinophils % Basophils % Nucleated RBC % Absolute Neutrophils Absolute Lymphocytes Absolute Monocytes Absolute Eosinophils Absolute Basophils ESR PT 10.4 INR 1.0 APTT 25.7 Sodium Potassium Chloride Carbon Dioxide Anion Gap BUN Creatinine Estimated GFR/1.73 m2 Glucose Calcium Magnesium Total Bilirubin AST ALT Alkaline Phosphatase Creatine Kinase Troponin I 2513 H* 1593 H* C-Reactive Protein Total Protein Albumin Urine Color Urine Clarity Urine pH Ur Specific [place] Urine Protein Urine Ketones Urine Blood Urine Nitrite Urine Bilirubin Urine Urobilinogen Ur Leukocyte Esterase Urine RBC Urine WBC Ur Epithelial Cells Urine Crystals Urine Bacteria Urine Casts Urine Mucus Ur Culture Indicated? Urine Glucose Urine Opiates Screen Urine Methadone Screen Ur Barbiturates Screen Ur Tricyclics Screen Ur Amphetamines Screen U Benzodiazepines Scrn Urine Cocaine Screen Ur THC Screen COVID-19 Source SARS-CoV-2 (PCR) 04/15/21 04/15/21 04/15/21 08:26 06:58 06:58 WBC RBC Hgb Hct MCV MCH MCHC RDW Plt Count MPV Immature Gran % Neutrophils % Lymphocytes % Monocytes % Eosinophils % Basophils % Nucleated RBC % Absolute Neutrophils Absolute Lymphocytes Absolute Monocytes Absolute Eosinophils Absolute Basophils ESR 22 PT INR APTT Sodium Potassium Chloride Carbon Dioxide Anion Gap BUN Creatinine Estimated GFR/1.73 m2 Glucose Calcium Magnesium Total Bilirubin AST ALT Alkaline Phosphatase Creatine Kinase 123 Troponin I C-Reactive Protein Total Protein Albumin Urine Color Urine Clarity Urine pH Ur Specific [place] Urine Protein Urine Ketones Urine Blood Urine Nitrite Urine Bilirubin Urine Urobilinogen Ur Leukocyte Esterase Urine RBC Urine WBC Ur Epithelial Cells Urine Crystals Urine Bacteria Urine Casts Urine Mucus Ur Culture Indicated? Urine Glucose Urine Opiates Screen Urine Methadone Screen Ur Barbiturates Screen Ur Tricyclics Screen Ur Amphetamines Screen U Benzodiazepines Scrn Urine Cocaine Screen Ur THC Screen COVID-19 Source Nasal/Nares SARS-CoV-2 (PCR) Negative 04/15/21 04/15/21 04/15/21 06:58 06:58 06:58 WBC RBC Hgb Hct MCV MCH MCHC RDW Plt Count MPV Immature Gran % Neutrophils % Lymphocytes % Monocytes % Eosinophils % Basophils % Nucleated RBC % Absolute Neutrophils Absolute Lymphocytes Absolute Monocytes Absolute Eosinophils Absolute Basophils ESR PT INR APTT Sodium 136 Potassium 3.7 Chloride 99 Carbon Dioxide 26.9 Anion Gap 10.1 BUN 14 Creatinine 1.1 H D Estimated GFR/1.73 m2 51.96 Glucose 113 H D Calcium 9.3 Magnesium Total Bilirubin AST ALT Alkaline Phosphatase Creatine Kinase Troponin I 851 H* C-Reactive Protein 0.15 Total Protein Albumin Urine Color Urine Clarity Urine pH Ur Specific [place] Urine Protein Urine Ketones Urine Blood Urine Nitrite Urine Bilirubin Urine Urobilinogen Ur Leukocyte Esterase Urine RBC Urine WBC Ur Epithelial Cells Urine Crystals Urine Bacteria Urine Casts Urine Mucus Ur Culture Indicated? Urine Glucose Urine Opiates Screen Urine Methadone Screen Ur Barbiturates Screen Ur Tricyclics Screen Ur Amphetamines Screen U Benzodiazepines Scrn Urine Cocaine Screen Ur THC Screen COVID-19 Source SARS-CoV-2 (PCR) 04/15/21 04/15/21 04/15/21 06:00 06:00 05:15 WBC 14.82 H RBC 5.43 H Hgb 15.9 H Hct 49.1 H MCV 90.4 MCH 29.3 MCHC 32.4 RDW 13.0 Plt Count 423 H MPV 9.4 Immature Gran % 0.5 Neutrophils % 84.0 Lymphocytes % 12.5 Monocytes % 2.8 Eosinophils % 0.0 Basophils % 0.2 Nucleated RBC % 0 Absolute Neutrophils 12.45 H Absolute Lymphocytes 1.85 Absolute Monocytes 0.41 Absolute Eosinophils 0.00 Absolute Basophils 0.03 ESR PT INR APTT Sodium Potassium Chloride Carbon Dioxide Anion Gap BUN Creatinine Estimated GFR/1.73 m2 Glucose Calcium Magnesium Total Bilirubin AST ALT Alkaline Phosphatase Creatine Kinase Troponin I C-Reactive Protein Total Protein Albumin Urine Color Yellow Urine Clarity Clear Urine pH 7.0 Ur Specific [place] >= 1.030 H Urine Protein >=300 H Urine Ketones Trace H Urine Blood Moderate H Urine Nitrite Negative Urine Bilirubin Negative Urine Urobilinogen 0.2 Ur Leukocyte Esterase Trace H Urine RBC 10-20 H Urine WBC 3-5 Ur Epithelial Cells Moderate Urine Crystals Few Amorphous Urine Bacteria Few Urine Casts 3-5 Hyaline Urine Mucus Heavy Ur Culture Indicated? No/Sq. Contamination Urine Glucose Negative Urine Opiates Screen Negative Urine Methadone Screen Negative Ur Barbiturates Screen Negative Ur Tricyclics Screen Negative Ur Amphetamines Screen Positive A U Benzodiazepines Scrn Negative Urine Cocaine Screen Negative Ur THC Screen Positive A COVID-19 Source SARS-CoV-2 (PCR) 04/15/21 05:15 WBC RBC Hgb Hct MCV MCH MCHC RDW Plt Count MPV Immature Gran % Neutrophils % Lymphocytes % Monocytes % Eosinophils % Basophils % Nucleated RBC % Absolute Neutrophils Absolute Lymphocytes Absolute Monocytes Absolute Eosinophils Absolute Basophils ESR PT INR APTT Sodium 137 Potassium 3.4 L Chloride 96 L Carbon Dioxide 14.9 L Anion Gap 26.1 H BUN 15 Creatinine 1.6 H Estimated GFR/1.73 m2 33.72 Glucose 215 H Calcium 10.2 H Magnesium 3.1 H Total Bilirubin 0.3 AST 21 ALT 59 Alkaline Phosphatase 147 H Creatine Kinase Troponin I 360 H* C-Reactive Protein Total Protein 9.0 H Albumin 4.4 Urine Color Urine Clarity Urine pH Ur Specific [place] Urine Protein Urine Ketones Urine Blood Urine Nitrite Urine Bilirubin Urine Urobilinogen Ur Leukocyte Esterase Urine RBC Urine WBC Ur Epithelial Cells Urine Crystals Urine Bacteria Urine Casts Urine Mucus Ur Culture Indicated? Urine Glucose Urine Opiates Screen Urine Methadone Screen Ur Barbiturates Screen Ur Tricyclics Screen Ur Amphetamines Screen U Benzodiazepines Scrn Urine Cocaine Screen Ur THC Screen COVID-19 Source SARS-CoV-2 (PCR) PFSH All Active Problems (Updated 04/15/21 @ 15:07 by Bogdan Daugherty) Non-ST elevation LA (NSTEMI) (Acute) Syncope (Acute) Surgical wound dehiscence (Acute) Postoperative wound cellulitis (Acute) Unresponsive episode (Acute) Elevated troponin (Acute) Painful orthopaedic hardware (Acute) s/p removal of helical blade from TFNA DOS: 02/09/2021 Preoperative cardiovascular examination (Acute) Diverticulosis (Acute) Colon polyp (Acute) GERD (gastroesophageal reflux disease) (Chronic) Trochanteric bursitis, left hip (Acute 10/02/17) Pulmonary hypertension (Acute) pt. denies this T12 compression fracture (Chronic) Acute electrocardiogram changes (Acute) Tobacco abuse (Chronic) Muscle spasm (Acute) Radiculopathy (Acute) Chest pain (Acute) Pt. states this is not accurate, pt. states she had pain in side near her ribs, pt. states she was told it was a muscle spasm Medical History Anxiety Bilateral calcaneal fractures Closed left hip fracture Depression History of ETOH abuse IUD surveillance (01/13/15) Menorrhagia Status post fracture of femur Surgical History section x 3 H/O colonoscopy (~05/2019) Hyperplastic polyp History of repair of hip fracture left femur, heel Ligation of fallopian tube 1989 Family History Mother Diabetes Osteoporosis Hyperlipidemia Social History Smoking/Tobacco Use Status: Current every day Tobacco Type: cigarettes Smoking packs per day: 1 Smoking cigarettes per day: 20.0 Years smoked: 40 Smoking pack-years: 40.00 Smoking risk assessment performed?: Yes Alcohol Intake: current Alcohol Intake frequency: a few times a month Alcohol type: beer Drug use: Daily Substance use type: marijuana Details: History of previous heroin, cocaine, crack, Kaylene, meth Last use of any of these meds was over 3 years Denies IV drug use States smoked marijuana today 02.09.21 Current gender identity: female Seatbelt use: always Do you feel safe at home: Yes Do you feel safe in your relationship?: Yes Female Reproductive History Menstrual control method: progestin IUCD, permanent sterilization and other History History 5 Para 3 Hx # Term Pregnancies Multiple births Hx # Pregnancies Ectopic pregnancies AB induced Hx Number of Living Children AB spontaneous
== END 2021-04-15 16:45 | disposition short-term general hospital (02) | DRG 281 ==
LOC: ER 08:43 → ICU 09:59
PROVIDERS: Emergency Medicine; Admitting Provider Internal Medicine; Emergency Provider Internal Medicine; PCP Physician Assistant; Visit Provider Internal Medicine
DX: I21.4 Non-ST elevation (NSTEMI) myocardial infarction; E87.2 Acidosis; E86.0 Dehydration; R55 Syncope and collapse; F32.A Depression, unspecified; K57.90 Diverticulosis of intestine, part unspecified, without perforation or abscess without bleeding; F17.210 Nicotine dependence, cigarettes, uncomplicated; I10 Essential (primary) hypertension
CPT/HCPCS: 36415; 71275; 80048; 80053; 80307; 82550; 85652; 87635; 93005; 96360; 96361; 96372; 99285; J1650; 70450; 81003; 81015; 83735; 84484; 85025; 85610; 85730; 86140; 93010; 93306; 99239; 99291; J2405; J3490

== ENCOUNTER 2021-07-21 15:44 | Emergency (ER) | payer MEDICAID, SELFPAY ==
[2021-07-21] VITALS (54 sets, daily range): BP systolic 141–185; BP diastolic 66–96; PULSE 61–90; RESP 10–44; TEMP 36.8–37; O2SAT 95–99
--- NOTE | 2021-07-21 15:39 | ED.GENADUL_ITS ---
Discharge Plan Disposition Patient Disposition: HOME Condition: Improving Discharge Details Clinical Impression: Opiate withdrawal Primary Care Provider: Henrry Ragland ED Provider: Shamar Reece Home Meds and New Rx's Prescriptions: Continued mirtazapine 7.5 mg tablet 7.5 mg PO QHS 0RF venlafaxine [Effexor XR] 75 MG capsule,extended release 24hr 75 mg PO DAILY 0RF Label Comments: 10/02/17-PT STATES CURRENT DOSE IS 150MG DAILY--TETO MEDINA omeprazole 40 mg capsule,delayed release(DR/EC) 40 mg PO DAILY Qty: 30 0RF aspirin 81 mg tablet,delayed release (DR/EC) 81 mg PO BID Qty: 60 0RF Label Comments: not taking acetaminophen [Tylenol Extra Strength] 500 mg tablet 500 mg PO Q6H PRNQty: 90 0RF acetaminophen 500 mg Tablet 1,000 mg PO Q6H PRN0RF Discontinued celecoxib [Celebrex] 200 mg capsule 200 mg PO BID Qty: 60 0RF Label Comments: not taking ibuprofen 200 mg Tablet 400 mg PO Q6H PRN0RF Label Comments: not taking Discharge Instructions Instructions: Opioid Withdrawal (ED) Additional Instructions: You were seen by a [facility] refinery operator light ends recovery in the ER and given material regarding local recovery resources. Home to rest. Small, frequent sips of fluids to maintain hydration. May use the provided Zofran if needed for nausea. Medical Decision Making 61-year-old female with a long history of substance abuse presents via ambulance today. She complains of 2 days of nausea and vomiting following daily habit of 2 bags of fentanyl which she has been inhaling. Last use 2 days ago. Attempted 8 mg of Suboxone earlier today and vomited. Took her antihypertensive and other medications yesterday. Should not fall or injure himself. She is not immunized but has not been ill in any other way. Patient presents with some active mild dry heaving. Differential diagnosis includes dehydration, opiate withdrawal, electrolyte abnormality. IV Access established, screening labs obtained patient given fluids and banana bag along with clonidine and antiemetic. Laboratories are reassuring. COVID-19 test negative. Patient improved following fluids, medication, banana bag. She was briefly interviewed by refinery operator light ends recovery. She was observed, improved, tolerated liquids by mouth without difficulty. Provided Zofran for home. She will follow-up with the refinery operator light ends recovery. Patient discharged in stable and improved condition. Lab Data Lab results reviewed: Yes I reviewed the patient's lab results. Labs: Laboratory Results - last 24 hr 07/21/21 07/21/21 15:35 15:35 WBC 10.08 RBC 4.88 Hgb 14.1 Hct 43.6 MCV 89.3 MCH 28.9 MCHC 32.3 RDW 13.4 Plt Count 364 MPV 9.4 Immature Gran % 0.3 Neutrophils % 81.4 Lymphocytes % 14.5 Monocytes % 2.9 Eosinophils % 0.3 Basophils % 0.6 Nucleated RBC % 0 Absolute Neutrophils 8.21 H Absolute Lymphocytes 1.46 Absolute Monocytes 0.29 Absolute Eosinophils 0.03 Absolute Basophils 0.06 Sodium 138 Potassium 4.5 Chloride 104 Carbon Dioxide 24.3 Anion Gap 9.7 BUN 16 Creatinine 1.0 Estimated GFR/1.73 m2 58.00 Glucose 138 H Calcium 9.6 Magnesium 2.0 Total Bilirubin 0.2 AST 36 ALT 53 Alkaline Phosphatase 168 H Total Protein 8.2 Albumin 4.0 HPI General Mode of arrival: ambulatory . Date/Time Provider Initiated Documentation: 07/21/21 17:34 . Limitations to Documentation: no limitations . Information obtained by: patient . History of Present Illness 51 year old F presents to the emergency department with the chief complaint of Drug withdrawa l, described as moderate and similar to prior episodes, Patient started experiencing this day(s) and it has been intermittent. improves with No relieving factors improve symptom(s), No exacerbating factors reported . Patient notes loss of appetite and nausea/vomiting; denies confusion, cough, headaches, seizure, shortness of breath, syncope and weakness. Patient did receive the following treatments prior to arrival, none Related Data Home Medications Medication Instructions Recorded Confirmed venlafaxine 75 mg capsule,extended 75 mg PO DAILY 01/30/17 07/21/21 release 24 hr (Effexor XR) omeprazole 40 mg capsule,delayed 40 mg PO DAILY #30 cap 02/10/18 07/21/21 release mirtazapine 7.5 mg tablet 7.5 mg PO QHS 01/27/21 04/15/21 acetaminophen 500 mg tablet 1,000 mg PO Q6H PRN 02/09/21 07/21/21 acetaminophen 500 mg tablet 500 mg PO Q6H PRN #90 tab 02/09/21 07/21/21 (Tylenol Extra Strength) aspirin 81 mg tablet,delayed 81 mg PO BID #60 tab 02/09/21 04/15/21 release Previous Rx's Medication Instructions Recorded omeprazole 40 mg capsule,delayed 40 mg PO DAILY #30 cap 02/10/18 release acetaminophen 500 mg tablet 500 mg PO Q6H PRN #90 tab 02/09/21 (Tylenol Extra Strength) aspirin 81 mg tablet,delayed 81 mg PO BID #60 tab 02/09/21 release Allergies Allergy/AdvReac Type Severity Reaction Status Date / Time No Known Allergies Allergy Verified 07/21/21 15:35 General Stated Complaint: DrugWithdr/MAT ANGELITA: 3 Review of Systems Narrative: Nausea and vomiting, some loose and watery stool. Took her medicines yesterday. Worsened after trying to take 8 mg Suboxone. No fall or head injury. Denies headache. PFSH All Active Problems (Updated 07/21/21 @ 19:20 by Shamar Reece MD) Opiate withdrawal (Acute) Non-ST elevation OK (NSTEMI) (Acute) Syncope (Acute) Surgical wound dehiscence (Acute) Postoperative wound cellulitis (Acute) Elevated troponin (Acute) Painful orthopaedic hardware (Acute) s/p removal of helical blade from TFNA DOS: 02/09/2021 Preoperative cardiovascular examination (Acute) Diverticulosis (Acute) Colon polyp (Acute) GERD (gastroesophageal reflux disease) (Chronic) Trochanteric bursitis, left hip (Acute 10/02/17) Pulmonary hypertension (Acute) pt. denies this T12 compression fracture (Chronic) Acute electrocardiogram changes (Acute) Tobacco abuse (Chronic) Muscle spasm (Acute) Radiculopathy (Acute) Chest pain (Acute) Pt. states this is not accurate, pt. states she had pain in side near her ribs, pt. states she was told it was a muscle spasm Medical History Anxiety Bilateral calcaneal fractures Closed left hip fracture Depression History of ETOH abuse IUD surveillance (01/13/15) Menorrhagia Status post fracture of femur Surgical History section x 3 H/O colonoscopy (~05/2019) Hyperplastic polyp History of repair of hip fracture left femur, heel Ligation of fallopian tube 1989 Family History Mother Diabetes Osteoporosis Hyperlipidemia Social History Smoking/Tobacco Use Status: Current every day Tobacco Type: cigarettes Smoking packs per day: 1 Smoking cigarettes per day: 20.0 Years smoked: 40 Smoking pack- years: 40.00 Smoking risk assessment performed?: Yes Alcohol Intake: current Alcohol Intake frequency: a few times a month Alcohol type: beer Drug use: Daily Substance use type: marijuana Details: History heroin, cocaine, crack, Kaylene, meth Last use of any of these meds was 2 days ago Denies IV drug use Current gender identity: female Seatbelt use: always Do you feel safe at home: Yes Do you feel safe in your relationship?: Yes Female Reproductive History Menstrual control method: progestin IUCD, permanent sterilization and other History History 5 Para 3 Hx # Term Pregnancies Multiple births Hx # Pregnancies Ectopic pregnancies AB induced Hx Number of Living Children AB spontaneous Exam Narrative Exam Narrative: GEN: awake, alert, oriented 3. Pleasant, well groomed, interactive. HEAD: Normocephalic, atraumatic ENT: Mucous membranes dry, oropharynx unremarkable, External ear exam unremarkable EYES: PERRL, EOMI NECK: Full ROM, no MARCK, no menigismus CHEST/RESP: Nontender, clear to auscultation bilateral, no wheeze/rhonchi/rales CARDIOVASCULAR: RRR, no murmur, rub duane. 2+ Rad pulse bilateral ABDOMEN: Soft, nontender, no mass. +Bowel sounds EXT: Full ROM, no edema, no rash Neuro: Grossly normal neurologic exam, conversant, interactive. Psych: Speech fluent, thoughts congruent, affect anxious Course Vital Signs Vital signs: Vital Signs Temperature 36.8 C 07/21/21 15:25 Pulse 86 07/21/21 15:25 Respiratory Rate 18 07/21/21 15:25 Blood Pressure 141/96 H 07/21/21 15:25 Pulse Oximetry 99 07/21/21 15:25 Temperature 36.8 C 07/21/21 15:25 Temperature Source Skin 07/21/21 15:25 Pulse 86 07/21/21 15:25 Respiratory Rate 18 07/21/21 15:25 Blood Pressure 141/96 H 07/21/21 15:25 Pulse Oximetry 99 07/21/21 15:25 Oxygen Delivery Method Room Air 07/21/21 15:25 Oxygen Flow Rate 0 07/21/21 15:25 Pain Level 5 07/21/21 15:25
[2021-07-21] MEDS: Ondansetron 4 MG/2 ML VIAL IVP ×2 (15:51→20:09)
[2021-07-21] MEDS: LORazepam 2 MG/ML VIAL 1 MG IVP (15:52)
[2021-07-21] MEDS: diphenhydrAMINE 50 MG/ML VIAL 25 MG IVP (15:52)
[2021-07-21] MEDS: cloNIDine 0.1 MG TAB PO (15:52)
[2021-07-21] MEDS: Pantoprazole 40 MG VIAL IVP (15:52)
[2021-07-21] MEDS: Normal Saline 1,000 ML 1000 ML IV (16:00)
[2021-07-21 16:02] LABS: Abs Immature Grans 0.03 10^3/uL (0.0-0.06); Absolute Basophil Count 0.06 10^3/uL (0.0-0.2); Absolute Eosinophil Count 0.03 10^3/uL (0.0-0.7); Absolute Lymphocyte Count 1.46 10^3/uL (1.2-3.4); Absolute Monocyte Count 0.29 10^3/uL (0.1-0.8); Absolute Neutrophil Count 8.21 10^3/uL (1.2-6.7); Basophils % 0.6; Eosinophils % 0.3; HCT 43.6 % (36.0-46.0); HGB 14.1 g/dL (11.2-15.7); Immature Grans % 0.3; Lymphocytes % 14.5; MCH 28.9 pg (27.0-33.0); MCHC 32.3 % (32.0-36.0); MCV 89.3 fL (80-95); MPV 9.4 fL (8.0-11.0); Monocytes % 2.9; Neutrophils % 81.4; Nucleated RBC 0 %; Platelet Count 364 10^3/uL (130-400); RBC 4.88 10^6/uL (3.93-5.22); RDW 13.4 % (11.7-14.6); RDW-SD 44.3 fL; WBC 10.08 10^3/uL (4.4-10.8)
[2021-07-21 16:19] LABS: ALT 53 U/L (14-59); AST 36 U/L (15-37); Alkaline Phosphatase 168 U/L (46-116); Anion Gap 9.7 mmol/L (3-11); BUN 16 mg/dL (7-18); Bilirubin, Total 0.2 mg/dL (0.2-1.0); CO2 24.3 mmol/L (21.0-32.0); Calcium 9.6 mg/dL (8.5-10.1); Chloride 104 mmol/L (98-107); Glucose 138 mg/dL (74-106); Potassium 4.5 mmol/L (3.5-5.1); Sodium 138 mmol/L (136-145); Total Protein 8.2 g/dL (6.4-8.2)
[2021-07-21] MEDS: MAGNESIUM SULFATE 8.12 MEQ, MULTIVITAMIN 10 ML, THIAMINE 100 MG, FOLIC ACID 1 MG in Nor... 168.867 MG IV (16:20)
[2021-07-21 18:00] LABS: Bilirubin Negative (Negative); Blood Trace-intact (Negative); Clarity Clear (Clear); Glucose Negative (Negative); Ketones Negative (Negative); Leukocyte Esterase Negative (Negative); Nitrite Negative (Negative); Specific Gravity 1.025 (1.005-1.025); Urobilinogen 0.2 EU/dL (Up TO 0.2); pH 8.5 (5-8)
[2021-07-21 18:09] LABS: Bacteria Negative HPF (Negative); C & S Indicated? No; Crystals Negative HPF (Negative); Epithelial Cells Many HPF (Negative); Mucus Negative (Negative); WBC 0-2 HPF (0-5)
[2021-07-21 18:33] LABS: *AMPHETAMINES SCREEN URINE Negative (Negative); *BARBITURATES SCREEN URINE Negative (Negative); *BENZODIAZEPINES SCREEN URINE Negative (Negative); Cannabinoids THC Positive (Negative); Cocaine Screen,Urine Negative (Negative); METHADONE URINE SCREEN Negative (Negative); OPIATES URINE SCREEN Negative (Negative)
[2021-07-21 18:35] LABS: COVID-19 PCR Negative (Negative); Influenza A PCR Negative (Negative); Influenza B PCR Negative (Negative); RSV PCR Negative (Negative)
[2021-07-21 18:49] LABS: Tricyclic Antidepressants Negative (Negative)
[2021-07-21] MEDS: Ondansetron O.D.T. 4 MG TABEF, 3 TABS/BTL PO (20:09)
== END 2021-07-21 20:53 | disposition home or self-care (01) ==
PROVIDERS: Emergency Provider Emergency Medicine; PCP Physician Assistant
DX: F11.23 Opioid dependence with withdrawal (principal); Z20.822 Contact with and (suspected) exposure to COVID-19
CPT/HCPCS: 36415; 80053; 80307; 87637; 96361; 96365; 96366; 96375; 96376; 99284; 81003; 81015; 83735; 85025; J1200; J2060; J2405

== ENCOUNTER 2021-10-21 12:06 | Emergency (ER) | payer MEDICAID, SELFPAY ==
[2021-10-21 12:06] VITALS: BP 151/74; PULSE 84; RESP 16; TEMP 37.2; O2SAT 98
--- NOTE | 2021-10-21 12:16 | W.ED.GENAD ---
Discharge Plan Disposition Patient Disposition: HOME Condition: Improving Discharge Details Clinical Impression: Odontalgia Primary Care Provider: Henrry Ragland ED Provider: Shamar Reece Home Meds and New Rx's Prescriptions: New penicillin V potassium 500 mg tablet 500 mg PO TID 10 Days Qty: 30 0RF Continued venlafaxine [Effexor XR] 75 MG capsule,extended release 24hr 75 mg PO DAILY Label Comments: 10/02/17-PT STATES CURRENT DOSE IS 150MG DAILY--TETO MEDINA omeprazole 40 mg capsule,delayed release(DR/EC) 40 mg PO DAILY Qty: 30 0RF acetaminophen [Tylenol Extra Strength] 500 mg tablet 500 mg PO Q6H PRNQty: 90 0RF acetaminophen 500 mg Tablet 1,000 mg PO Q6H PRN Discharge Instructions Instructions: Toothache (ED) Additional Instructions: Warm, salt water gargle.. Take penicillin as prescribed. [facility] dentistry is excepting new patients. Their office #[phone]. We have also enclosed other local options. May use provided hydrocodone if needed for severe or breakthrough pain. Do not take additional Tylenol when using this medication. Return for any acute concerns. Medical Decision Making 51-year-old female presents from home via EMS. He is ambulatory to the [facility]. She has had 2 to 3 days of left jaw pain and swelling similar to previous dental infections. She has numerous missing and broken teeth. She has evidence of an developing periapical abscess. No fluctuance or pointing. Not amenable to drainage. Patient anesthetized with a dental block. She will be placed on a course of antibiotics, referred for follow-up with dentistry, and is consented for use of a small number of oral analgesics for breakthrough pain. HPI General Mode of arrival: ambulatory. Limitations to Documentation: no limitations. Information obtained by: patient. History of Present Illness 51 year old F presents to the emergency department with the chief complaint of Left jaw pain and swelling, described as moderate and similar to prior episodes, Quality is described as dull and constant, and is localized to the face, mouth and left. Patient reports no radiation. Patient started experiencing this day(s) No relieving factors improve symptom(s), No exacerbating factors reported . Patient notes no other symptoms.. Patient did receive the following treatments prior to arrival, NSAID Related Data Home Medications Medication Instructions Recorded Confirmed venlafaxine 75 mg capsule,extended 75 mg PO DAILY 10/09/17 06/30/22 release 24 hr (Effexor XR) omeprazole 40 mg capsule,delayed 40 mg PO DAILY #30 caps 02/10/18 10/21/21 release acetaminophen 500 mg tablet 1,000 mg PO Q6H PRN 02/09/21 10/21/21 acetaminophen 500 mg tablet 500 mg PO Q6H PRN #90 tabs 02/09/21 10/21/21 (Tylenol Extra Strength) penicillin V potassium 500 mg 500 mg PO TID 10 days #30 tabs 10/21/21 tablet Previous Rx's Medication Instructions Recorded omeprazole 40 mg capsule,delayed 40 mg PO DAILY #30 caps 02/10/18 release acetaminophen 500 mg tablet 500 mg PO Q6H PRN #90 tabs 02/09/21 (Tylenol Extra Strength) penicillin V potassium 500 mg 500 mg PO TID 10 days #30 tabs 10/21/21 tablet Allergies Allergy/AdvReac Type Severity Reaction Status Date / Time No Known Allergies Allergy Verified 10/21/21 12:09 General Stated Complaint: DentalOral ANGELITA: 4 Review of Systems Narrative: 6 systems reviewed and otherwise negative PFSH All Active Problems (Updated 10/21/21 @ 12:19 by Shamar Reece MD) Odontalgia (Acute) Non-ST elevation [place] (NSTEMI) (Acute) Syncope (Acute) Surgical wound dehiscence (Acute) Postoperative wound cellulitis (Acute) Elevated troponin (Acute) Painful orthopaedic hardware (Acute) s/p removal of helical blade from TFNA DOS: 02/09/2021 Preoperative cardiovascular examination (Acute) Diverticulosis (Acute) Colon polyp (Acute) GERD (gastroesophageal reflux disease) (Chronic) Trochanteric bursitis, left hip (Acute 10/02/17) Pulmonary hypertension (Acute) pt. denies this T12 compression fracture (Chronic) Acute electrocardiogram changes (Acute) Tobacco abuse (Chronic) Muscle spasm (Acute) Radiculopathy (Acute) Chest pain (Acute) Pt. states this is not accurate, pt. states she had pain in side near her ribs, pt. states she was told it was a muscle spasm Medical History Anxiety Bilateral calcaneal fractures Closed left hip fracture Depression History of ETOH abuse IUD surveillance (01/13/15) Menorrhagia Status post fracture of femur Surgical History section x 3 H/O colonoscopy (~05/2019) Hyperplastic polyp History of repair of hip fracture left femur, heel Ligation of fallopian tube 1989 Family History Mother Diabetes Osteoporosis Hyperlipidemia Social History Smoking/Tobacco Use Status: Current every day Tobacco Type: cigarettes Smoking packs per day: 1 Smoking cigarettes per day: 20.0 Years smoked: 40 Smoking pack-years: 40.00 Smoking risk assessment performed?: Yes Alcohol Intake: current Alcohol Intake frequency: a few times a month Alcohol type: beer Drug use: Daily Substance use type: marijuana Details: History heroin, cocaine, crack, Kaylene, meth Last use of any of these meds was 2 days ago Denies IV drug use Current gender identity: female Seatbelt use: always Do you feel safe at home: Yes Do you feel safe in your relationship?: Yes Female Reproductive History Menstrual control method: progestin IUCD, permanent sterilization and other History History 5 Para 3 Hx # Term Pregnancies Multiple births Hx # Pregnancies Ectopic pregnancies AB induced Hx Number of Living Children AB spontaneous Exam Narrative Exam Narrative: GEN: awake, alert, oriented 3. Pleasant, well groomed, interactive. HEAD: Normocephalic, atraumatic ENT: Mucous membranes moist, oropharynx numerous missing and broken teeth with dental caries. Left jaw has buccal aspect swelling and tenderness without fluctuance or pointing. EYES: PERRL, EOMI NECK: Full ROM, no MARCK, no menigismus CHEST/RESP: No respiratory distress Neuro: Grossly normal neurologic exam, conversant, interactive. Psych: Speech fluent, thoughts congruent, affect anxious Course Vital Signs Vital signs: Vital Signs Temperature 37.2 C 10/21/21 12:06 Pulse 84 10/21/21 12:06 Respiratory Rate 16 10/21/21 12:06 Blood Pressure 151/74 H 10/21/21 12:06 Pulse Oximetry 98 10/21/21 12:06 Temperature 37.2 C 10/21/21 12:06 Pulse 84 10/21/21 12:06 Respiratory Rate 16 10/21/21 12:06 Respiratory Effort 10/21/21 12:10 Blood Pressure 151/74 H 10/21/21 12:06 Pulse Oximetry 98 10/21/21 12:06 Pain Level 10 10/21/21 12:10
[2021-10-21] MEDS: Penicillin V POTASSIUM 500 MG TAB, 4 TABS/BTL PO (12:41)
== END 2021-10-21 16:15 | disposition home or self-care (01) ==
LOC: ER 12:43
PROVIDERS: Emergency Provider Emergency Medicine; PCP Physician Assistant
DX: K04.7 Periapical abscess without sinus (principal); K02.9 Dental caries, unspecified; F17.210 Nicotine dependence, cigarettes, uncomplicated
CPT/HCPCS: 64400; 99283; 99284

== ENCOUNTER 2021-10-23 21:10 | Emergency (ER) | payer MEDICAID, SELFPAY ==
[2021-10-23 21:14] VITALS: BP 132/67; PULSE 89; RESP 18; TEMP 36.7; O2SAT 98
--- NOTE | 2021-10-23 21:30 | DI.CT_ITS ---
Exam(s) CT NECK W EXAM: CT NECK W CLINICAL HISTORY: left submandibular infection, concern for Constantino's. TECHNIQUE: Imaging Protocol: Axial CT angiography was performed with multi-slice acquisition and mu lti-planar and/or 3D reconstructions. CONTRAST MATERIAL: Intravenous: Omnipaque 350 Contrast volume:structured data in ml COMPARISON: CT HEAD AND CSPINE W/O CONTRAST from 01/30/2017 FINDINGS: Visualized paranasal sinuses: Unremarkable. Nasopharynx: Unremarkable. Oropharynx belkys dental: There is a large fluid collection-abscess related to the left side of the karely ible/left molar tooth. This measures 5 cm AP by 3 cm wide by 4 cm craniocaudal and extends into the cross roller space and deviates lingular structures towards the right side. No gas therein but highly suspicious for an abscess. There are enlarged submental lymph nodes. The uvula remains midline. Hypopharynx: Valleculae are clear and free edge of the epiglottis appears unremarkable as do the arye piglottic folds. Vocal cords-subglottic airway: Unremarkable. Thyroid gland: Unremarkable. Salivary glands: Parotid glands unremarkable on the right side. Slightly swollen on the left side. Submandibular glands: Normal on the right side. Intimately associated with the abscess on the left s hope. Lymph nodes: Enlarged submandibular lymph nodes, left greater than right. IMPRESSION: 1. There is a large abnormal odontogenic abscess with epicenter around left mandibular molar. There is adjacent lymphadenopathy and also inflammation of the left submandibular gland. First read by [facility]. RADIATION DOSE DELIVERED: 231.86mGy.cm Total DLP DATA REPOSITORY: All CT scans at this facility are submitted to the National Radiology Data Registry (NRDR) Dose Index Registry (DIR) with the [employer] ([employer]). RADIATION OPTIMIZATION: All CT scans at this facility use at least one of these dose optimization te chniques: automated exposure control; mA and/or kV adjustment per patient size (includes targeted exa ms where dose is matched to clinical indication); or iterative reconstruction.
--- NOTE | 2021-10-23 21:38 | ED.GENADUL_ITS ---
Discharge Plan Disposition Patient Disposition: STILL A PATIENT Condition: Stable Discharge Details Chief Complaint: DentalOral Primary Care Provider: Henrry Ragland ED Provider: Kevin James Home Meds and New Rx's Prescriptions: No Action venlafaxine [Effexor XR] 75 MG capsule,extended release 24hr 75 mg PO DAILY Label Comments: 10/02/17-PT STATES CURRENT DOSE IS 150MG DAILY--TETO MEDINA omeprazole 40 mg capsule,delayed release(DR/EC) 40 mg PO DAILY Qty: 30 0RF acetaminophen [Tylenol Extra Strength] 500 mg tablet 500 mg PO Q6H PRNQty: 90 0RF acetaminophen 500 mg Tablet 1,000 mg PO Q6H PRN penicillin V potassium 500 mg tablet 500 mg PO TID 10 Days Qty: 30 0RF penicillin V potassium 500 mg tablet 500 mg PO TID 10 Days Qty: 30 0RF Medical Decision Making 51-year-old female presents with worsening left facial pain and swelling in the setting of multiple chronic dental fractures and caries, was started on penicillin V, worsening symptomatology over the past several days, afebrile, tolerating secretions, normal voice, however firm erythema and induration to mandibular and submandibular soft tissue as well as submental space, soft sublingual space, concern for early Stanford's angina versus facial abscess versus neck abscess. Screening labs imaging analgesia anti-inflammatory antibiotics will likely need to transfer patient to [facility] or [facility] for ENT capabilities given worsening infection despite oral antibiotics. 7:01 patient resting comfortably, has a positive blood culture already, heart rate went from the 80s to high 90s, maintaining airway tolerating secretions, have been in contact with both [facility] and [facility] who are still out of beds although both hospital ENT/oral surgery teams are willing to accept patient when beds are available. Will attempt to contact [facility] and [facility] to see if they have ENT services and space 7: 47 [facility] does not have availability/ENT services. Awaiting to hear back from [facility]. Patient resting comfortably no acute distress. HPI General Date/Time Provider Initiated Documentation: 10/23/21 21:12 . HPI Narrative: 51-year-old female presents with several days of left jaw discomfort in the setting of poor dentition, was started on penicillin V has been compliant over the past several days endorses worsening facial swelling and pain trouble swallowing food, is able to swallow liquids. Has been taking Tylenol and Motrin regularly for discomfort without improvement. Related Data Home Medications Medication Instructions Recorded Confirmed venlafaxine 75 mg capsule,extended 75 mg PO DAILY 01/30/17 10/23/21 release 24 hr (Effexor XR) omeprazole 40 mg capsule,delayed 40 mg PO DAILY #30 caps 02/10/18 10/23/21 release acetaminophen 500 mg tablet 1,000 mg PO Q6H PRN 02/09/21 10/23/21 acetaminophen 500 mg tablet 500 mg PO Q6H PRN #90 tabs 02/09/21 10/21/21 (Tylenol Extra Strength) penicillin V potassium 500 mg 500 mg PO TID 10 days #30 tabs 10/21/21 10/23/21 tablet penicillin V potassium 500 mg 500 mg PO TID 10 days #30 tabs 10/22/21 10/23/21 tablet Previous Rx's Medication Instructions Recorded omeprazole 40 mg capsule,delayed 40 mg PO DAILY #30 caps 02/10/18 release acetaminophen 500 mg tablet 500 mg PO Q6H PRN #90 tabs 02/09/21 (Tylenol Extra Strength) penicillin V potassium 500 mg 500 mg PO TID 10 days #30 tabs 10/21/21 tablet penicillin V potassium 500 mg 500 mg PO TID 10 days #30 tabs 10/22/21 tablet Allergies Allergy/AdvReac Type Severity Reaction Status Date / Time No Known Allergies Allergy Verified 10/21/21 12:09 General Stated Complaint: DentalOral ANGELITA: 3 Review of Systems Narrative: Review of Systems Constitutional: negative Eyes: negative ENT: Facial pain Cardiovascular: negative Respiratory: negative Gastrointestinal: negative : negative Musculoskeletal: negative Skin: negative Neurologic: negative Psych: negative PFSH All Active Problems (Updated 10/21/21 @ 12:19 by Shamar Reece MD) Odontalgia (Acute) Non-ST elevation MD (NSTEMI) (Acute) Syncope (Acute) Surgical wound dehiscence (Acute) Postoperative wound cellulitis (Acute) Elevated troponin (Acute) Painful orthopaedic hardware (Acute) s/p removal of helical blade from TFNA DOS: 02/09/2021 Preoperative cardiovascular examination (Acute) Diverticulosis (Acute) Colon polyp (Acute) GERD (gastroesophageal reflux disease) (Chronic) Trochanteric bursitis, left hip (Acute 10/02/17) Pulmonary hypertension (Acute) pt. denies this T12 compression fracture (Chronic) Acute electrocardiogram changes (Acute) Tobacco abuse (Chronic) Muscle spasm (Acute) Radiculopathy (Acute) Chest pain (Acute) Pt. states this is not accurate, pt. states she had pain in side near her ribs, pt. states she was told it was a muscle spasm Medical History Anxiety Bilateral calcaneal fractures Closed left hip fracture Depression History of ETOH abuse IUD surveillance (01/13/15) Menorrhagia Status post fracture of femur Surgical History section x 3 H/O colonoscopy (~05/2019) Hyperplastic polyp History of repair of hip fracture left femur, heel Ligation of fallopian tube 1989 Family History Mother Diabetes Osteoporosis Hyperlipidemia Social History Smoking/Tobacco Use Status: Current every day Tobacco Type: cigarettes Smoking packs per day: 1 Smoking cigarettes per day: 20.0 Years smoked: 40 Smoking pack- years: 40.00 Smoking risk assessment performed?: Yes Alcohol Intake: current Alcohol Intake frequency: a few times a month Alcohol type: beer Drug use: Daily Substance use type: marijuana Details: History heroin, cocaine, crack, Kaylene, meth Last use of any of these meds was 2 days ago Denies IV drug use Current gender identity: female Seatbelt use: always Do you feel safe at home: Yes Do you feel safe in your relationship?: Yes Female Reproductive History Menstrual control method: progestin IUCD, permanent sterilization and other History History 5 Para 3 Hx # Term Pregnancies Multiple births Hx # Pregnancies Ectopic pregnancies AB induced Hx Number of Living Children AB spontaneous Exam Narrative Exam Narrative: Physical Examination General: alert, awake, cooperative, moderately uncomfortable HEENT: normocephalic, atraumatic; PERRL, EOM intact, conjunctiva normal; no nasal discharge; moist mucous membranes, multiple chronic appearing fractured teeth and dental caries, indurated erythematous facial swelling involving left mandible, firm submandibular and submental induration as well as induration overlying the mandible, soft sublingual space tolerating secretions; Neck: supple, trachea midline; full ROM Chest: normal to inspection Respiratory: normal respiratory effort, speaking in full sentences, clear to auscultation, no wheezing, rales or rhonchi Cardiac: regular rate, regular rhythm, S1S2 intact, no murmurs rubs or gallops GI: abdomen soft, non-tender, non-distended; no palpable mass or hepatospl enomegaly Skin: no lesions, rashes or trauma appreciated Neuro: AAOx3, normal speech, moving all extremities Psych: Appropriate mood and affect Course Vital Signs Vital signs: Vital Signs Temperature 36.7 C 10/23/21 21:14 Pulse 89 10/23/21 21:14 Respiratory Rate 18 10/23/21 21:14 Blood Pressure 132/67 10/23/21 21:14 Pulse Oximetry 98 10/23/21 21:14 Temperature 36.7 C 10/23/21 21:14 Temperature Source Temporal Artery Scan 10/23/21 21:14 Pulse 89 10/23/21 21:14 Respiratory Rate 18 10/23/21 21:14 Respiratory Effort 10/23/21 21:19 Blood Pressure 132/67 10/23/21 21:14 Pulse Oximetry 98 10/23/21 21:14 Pain Level 10 10/23/21 21:14 Lab/Test Results Lab/Test Results: 10/23/21 21:30 Blood Blood Culture - Pending 10/23/21 21:30 Blood Blood Culture - Pending
[2021-10-23] MEDS: Ondansetron 4 MG/2 ML VIAL IVP (21:50)
[2021-10-23] MEDS: MORPHine 4 MG/ML SYR 2 MG IVP (21:51)
[2021-10-23] MEDS: Ketorolac 15 MG/ML VIAL IVP (21:51)
[2021-10-23] MEDS: Famotidine 20 MG/2 ML VIAL IVP (21:53)
[2021-10-23 22:10] LABS: Abs Immature Grans 0.09 10^3/uL (0.0-0.06); Absolute Basophil Count 0.05 10^3/uL (0.0-0.2); Basophils % 0.3; Eosinophils % 1.3; HCT 37.2 % (36.0-46.0); HGB 12.1 g/dL (11.2-15.7); Immature Grans % 0.5; Lymphocytes % 8.9; MCH 29.2 pg (27.0-33.0); MCHC 32.5 % (32.0-36.0); MCV 90 fL (80-95); MPV 9.3 fL (8.0-11.0); Monocytes % 7.9; Neutrophils % 81.1; Platelet Count 375 10^3/uL (130-400); RBC 4.15 10^6/uL (3.93-5.22); RDW 13.3 % (11.7-14.6); RDW-SD 43.9 fL; WBC 18.19 10^3/uL (4.4-10.8)
[2021-10-23 22:11] LABS: Absolute Eosinophil Count 0.24 10^3/uL (0.0-0.7); Absolute Lymphocyte Count 1.62 10^3/uL (1.2-3.4); Absolute Monocyte Count 1.44 10^3/uL (0.1-0.8); Absolute Neutrophil Count 14.75 10^3/uL (1.2-6.7)
[2021-10-23] MEDS: Omnipaque 350 MG/ML 100 ML BTL IJ (22:18)
[2021-10-23] MEDS: Normal Saline Flush 10 ML SYR IVP (22:20)
[2021-10-23 22:22] LABS: ALT 30 U/L (14-59); AST 10 U/L (15-37); Albumin 3.2 g/dL (3.4-5.0); Alkaline Phosphatase 126 U/L (46-116); Anion Gap 9.3 mmol/L (3-11); BUN 14 mg/dL (7-18); Bilirubin, Total 0.4 mg/dL (0.2-1.0); CO2 22.7 mmol/L (21.0-32.0); CREATININE 0.9 mg/dL (0.55-1.02); Calcium 9.2 mg/dL (8.5-10.1); Chloride 97 mmol/L (98-107); Glucose 104 mg/dL (74-106); Potassium 3.8 mmol/L (3.5-5.1); Sodium 129 mmol/L (136-145); Total Protein 7.6 g/dL (6.4-8.2)
--- NOTE | 2021-10-23 23:01 | DI.VRAD_ITS ---
PROCEDURE INFORMATION: Exam: CT Neck With Contrast Exam date and time: 10/23/2021 10:13 PM Age: 51 years old Clinical indication: Mass, lump, or swelling in neck; Left and anterior TECHNIQUE: Imaging protocol: Computed tomography of the neck with contrast. Contrast material: OMNIPAQUE 350; Contrast volume: 100 ml; Contrast route: INTRAVENOUS (IV); COMPARISON: CT HEAD AND CSPINE W/O CONTRAST 01/30/2017 4:09 AM FINDINGS: Paranasal sinuses: Moderate mucosal thickening noted through the ethmoid air cells. Negative for layering fluid in the maxillary sinuses. Oral cavity: The floor of the mouth structures are displaced to the right by the large left mandibular collection. Dental: Extensive dental disease noted. Apical abscess noted at the remaining left mandibular molar. Multiple caries and additional apical lucencies noted in the maxilla and mandible. Pharynx: Parapharyngeal fat spaces are intact and unremarkable. Elmo tonsils appear normal. Adenoid tonsils appear normal. Larynx: Normal epiglottis. Unremarkable larynx. Normal subglottic trachea. Prevertebral and retropharyngeal spaces: Unremarkable. Salivary glands: The left submandibular gland is indistinct and displaced by the large collection. The right submandibular gland is normal. The submandibular ducts are not dilated, and no submandibular stones are observed. Thyroid: Normal thyroid. Lymph nodes: Enlarged submandibular lymph nodes are present bilaterally, left greater than right. A mildly enlarged left level IIa lymph node measures 12 x 15 mm. Trachea: Visualized trachea is unremarkable. Lungs: Mild paraseptal emphysema noted in the lung apices. Bones/joints: Extensive dental disease again noted. No fracture. Soft tissues: A large complex fluid collection or cystic structure surrounds the left mandible, corresponding to a marker at the site of concern. The collection measures 5.7 x 3.5 x 4.3 cm. There is no air within the collection. Fat stranding extends into the anterior neck. Fat stranding and mild fluid are noted along the left masseter muscle. The temporalis muscle and pterygoid muscles appear intact and normal. IMPRESSION: 1. Suspect large odontogenic abscess related to dental disease at the left mandibular molar. Cystic neoplasm not excluded, considered less likely. 2. Adjacent lymphadenopathy and inflammation of the left submandibular gland. 3. Extension of the suspected infection into the left tufter hand space observed. Dictated and Authenticated by: Mayco Aviles MD. Ordering:OMI Brown MD
[2021-10-23] MEDS: AMPICILLIN/SULBACTAM 3 GM in Normal Saline 100 ML IVPB (23:02)
[2021-10-23 23:47] VITALS: BP 106/63; PULSE 74; RESP 16; O2SAT 97
[2021-10-24] VITALS (53 sets, daily range): BP systolic 132–145; BP diastolic 70–78; PULSE 91–97; TEMP 36.7; O2SAT 93–100
[2021-10-24 01:04] LABS: Source Nasal/Nares
[2021-10-24 02:00] LABS: COVID-19 PCR Negative (Negative)
[2021-10-24] MEDS: MORPHine 4 MG/ML SYR (04:14)
[2021-10-24] MEDS: PIPERACILLIN/TAZO 3.375 GM in Normal Saline 50 ML IVPB ×2 (08:19→15:17)
[2021-10-24] MEDS: metroNIDAZOLE 500 MG/100 ML BAG 100 MG IVPB (09:29)
[2021-10-24] MEDS: Normal Saline 1,000 ML 125 ML IV (10:06)
[2021-10-24] MEDS: MORPHine 4 MG/ML SYR IVP (11:01)
[2021-10-24] MEDS: HYDROmorphone 2 MG/ML VIAL 1 MG IVP ×2 (14:37→16:11)
--- NOTE | 2021-10-24 15:19 | ED.FU.B_ITS ---
Date of service: 10/24/21 Time of Service: 15:20 Follow Up Plan: Received signout from Dr. Collins. Please see his note regarding details of this presentation, exam and plan of care. At change of shift this morning, the [facility], [facility], [facility], [facility] are unable to accept in transfer. I also discussed with [facility] in [place], [facility], and [facility] and they also are unable to accept the patient due to lack of bed availability. I discussed the case with Dr. Meneses who is away on vacation and unavailable to attend to the hospital. Patient has been remained stable but with ongoing need for parenteral analgesia, parenteral antibiotics. She is currently receiving Zosyn and Flagyl. She is protecting her airway and able to control secretions.Dr. Coello spoke with Dr. Ryan Wheat of the [facility], I again discussed the case with oral maxillofacial surgery, and the patient was excepted to the ER by Dr. Lin.
[2021-10-24] MEDS: Ondansetron 4 MG/2 ML VIAL IVP (16:19)
== END 2021-10-24 16:26 ==
PROVIDERS: Emergency Medicine; Emergency Provider Emergency Medicine; PCP Physician Assistant
DX: K02.9 Dental caries, unspecified (principal); F17.210 Nicotine dependence, cigarettes, uncomplicated; Z20.822 Contact with and (suspected) exposure to COVID-19; S02.5XXA Fracture of tooth (traumatic), initial encounter for closed fracture; X58.XXXA Exposure to other specified factors, initial encounter; R78.81 Bacteremia; B96.89 Other specified bacterial agents as the cause of diseases classified elsewhere
CPT/HCPCS: 70491; 80053; 87040; 87635; 96361; 96365; 96366; 96367; 96368; 96375; 96376; 99285; 85025; 99284; J0295; J1885; J2270; J2405; J2543; J3490

== ENCOUNTER 2022-01-17 10:15 | Emergency (ER) | payer MEDICAID, SELFPAY ==
[2022-01-17] VITALS (13 sets, daily range): BP systolic 176–183; BP diastolic 97–109; PULSE 64–85; RESP 11–27; TEMP 37.1; O2SAT 100
--- NOTE | 2022-01-17 10:15 | RT.EKG_ITS ---
APPROVED REPORT Exam: Resting ECG Reason for Exam: withdrawal Patient Location: E HR:63 bpm ECG Measurements Heart Rate 63 AXIS ME 160 P -1 QRSd 78 QRS 38 QT 412 T 66 QTc 423 Conclusion Sinus rhythm...normal P axis, V-rate 60- 99 no STEMI, non-diagnostic EKG I have reviewed and interpreted ECG and agree with software generated interpretation.
[2022-01-17] MEDS: Normal Saline 1,000 ML 1000 ML IV (10:37)
[2022-01-17] MEDS: LORazepam 20 MG/10 ML VIAL IVP (10:40)
[2022-01-17] MEDS: Normal Saline Flush 10 ML SYR IVP (10:40)
--- NOTE | 2022-01-17 10:44 | W.EDPROG ---
Medical Decision Making Patient is a pleasant 51-year-old female with past medical history significant for NSTEMI, GERD, pulmonary hypertension, opiate abuse, presenting today with chief complaint of opiate withdrawal. Patient reports that she typically uses about 30 mg of fentanyl, which she snorts, daily. States that she last used yesterday morning. Patient reports that she is no longer getting high from this but rather she is using this to prevent herself from having any withdrawal symptoms. Today she began having nausea, vomiting and has felt tremulous. Patient is interested in beginning a medication assisted treatment plan. Smoke tobacco daily, smokes marijuana daily but no other ilicit drug use, no ETOH use. Denies SI/HI. Contacted PCP office, they have started MAT program and may be the most appropriate f/u. Patient COWS 26 Patient was evaluated by expert provider, womens volleyball coach. She will continue to utilize the resources as well. Labs reviewed. No significant abnormality noted. Her opiates were negative but is a patient with fentanyl and Versed last over 24 hours ago, not excised by this and continue to feel that moving forward with buprenorphine would be the appropriate management plan. The atypical labs prior including HIV and hepatitis screenings have been ordered. Patient and I had a lengthy discussion regarding risk/benefits as well as potential side effects associated with buprenorphine treatment. She has been on this historically and states that she did tolerate this well and continues to want to pursue being clean. Patient has signed consent form. We will give first dose of buprenorphine now. Patient I also discussed the fact that she has elevated blood pressure. She reports that she has had elevated blood pressure historically. She will be able to discuss this further with her primary care at upcoming visit. No evidence of endorgan damage from hypertensive emergency at this time. Discharge Plan Disposition Patient Disposition: HOME Condition: Stable Discharge Details Clinical Impression: Opiate addiction Primary Care Provider: Henrry Ragland ED Provider: Glo Ferguson Home Meds and New Rx's Prescriptions: Continued venlafaxine [Effexor XR] 75 MG capsule,extended release 24hr 75 mg PO DAILY Label Comments: 10/02/17-PT STATES CURRENT DOSE IS 150MG DAILY--TETO MEDINA omeprazole 40 mg capsule,delayed release(DR/EC) 40 mg PO DAILY Qty: 30 0RF acetaminophen [Tylenol Extra Strength] 500 mg tablet 500 mg PO Q6H PRNQty: 90 0RF acetaminophen 500 mg Tablet 1,000 mg PO Q6H PRN diphenhydramine HCl [Benadryl] 25 mg Capsule 50 mg PO DAILY Discharge Instructions Instructions: Buprenorphine (Into the mouth), Naloxone (Into the nose), Narcotic Use Disorder (ED) Additional Instructions: You have been started into the medication assisted withdrawal program. You are given your first dose of Suboxone here today. You are being sent home with dosing which you may use to continue your treatment tomorrow. Please not take any until tomorrow morning as you are at risk for overdose on this medication. Please go to [facility] tomorrow to continue establishing long-term care, there is information in the folders given to you on the bus schedule. Please abstain from other opiate use. scrum coach will also be in touch with you to assist during this transitional time. An appointment has been made for you with your primary care next week for reevaluation, and for further evaluation of your elevated blood pressure. Please encourage water intake. Please return if you develop chest pain, shortness of breath, inability to hydrate or other new/worsening symptoms. Please use the Narcan as was instructed if you have any symptoms of overdose including somnolence, shortness of breath, confusion. Please instruct those around you on how to use this as well and keep it with you at all times. Referrals: Henrry Ragland [Primary Care Provider] - 01/26/22 8:30 am
[2022-01-17 10:54] LABS: Abs Immature Grans 0.02 10^3/uL (0.0-0.06); Absolute Basophil Count 0.06 10^3/uL (0.0-0.2); Absolute Eosinophil Count 0.21 10^3/uL (0.0-0.7); Absolute Lymphocyte Count 1.66 10^3/uL (1.2-3.4); Absolute Monocyte Count 0.51 10^3/uL (0.1-0.8); Absolute Neutrophil Count 6.74 10^3/uL (1.2-6.7); Basophils % 0.7; Eosinophils % 2.3; HCT 43.3 % (36.0-46.0); HGB 14.5 g/dL (11.2-15.7); Immature Grans % 0.2; MCH 29.8 pg (27.0-33.0); MCHC 33.5 % (32.0-36.0); MCV 89 fL (80-95); MPV 9.4 fL (8.0-11.0); Monocytes % 5.5; Neutrophils % 73.3; Platelet Count 284 10^3/uL (130-400); RBC 4.87 10^6/uL (3.93-5.22); RDW 13.2 % (11.7-14.6); RDW-SD 43.2 fL
[2022-01-17 10:55] LABS: ALT 41 U/L (14-59); AST 30 U/L (15-37); Albumin 4.2 g/dL (3.4-5.0); Alkaline Phosphatase 111 U/L (46-116); Anion Gap 9.8 mmol/L (3-11); BUN 20 mg/dL (7-18); Bilirubin, Total 0.2 mg/dL (0.2-1.0); CO2 24.2 mmol/L (21.0-32.0); CREATININE 0.9 mg/dL (0.55-1.02); Calcium 9.6 mg/dL (8.5-10.1); Chloride 104 mmol/L (98-107); Estimated GFR 76.44 (mL/min/1.73m2); Glucose 125 mg/dL (74-106); Magnesium 1.9 mg/dL (1.8-2.4); Sodium 138 mmol/L (136-145); Total Protein 8.2 g/dL (6.4-8.2)
[2022-01-17 11:19] LABS: Troponin I < 50 ng/L (<or=60)
[2022-01-17 12:05] LABS: ALT 40 U/L (14-59); AST 30 U/L (15-37); Albumin 4.2 g/dL (3.4-5.0); Alkaline Phosphatase 110 U/L (46-116); Bilirubin, Direct 0.1 mg/dL (0.0-0.2); Bilirubin, Total 0.2 mg/dL (0.2-1.0); Total Protein 8.3 g/dL (6.4-8.2)
[2022-01-17 12:07] LABS: ETHANOL BLOOD < 3.0 mg/dL (<10)
[2022-01-17 12:46] LABS: *AMPHETAMINES SCREEN URINE Negative (Negative); *BARBITURATES SCREEN URINE Negative (Negative); *BENZODIAZEPINES SCREEN URINE Negative (Negative); Cannabinoids THC Positive (Negative); Cocaine Screen,Urine Negative (Negative); METHADONE URINE SCREEN Negative (Negative); OPIATES URINE SCREEN Negative (Negative)
[2022-01-17 12:49] LABS: Tricyclic Antidepressants Negative (Negative)
--- NOTE | 2022-01-17 17:48 | PDOC.ERCMPRO ---
- If Service Date Differs Date of service: 01/17/22 Time of Service: 17:49 Care Management Progress Note CM consulted by provider for new MAT f/u process with [facility]. CM reviewed SDOH with Carissa, who requested support with navigating RCT shuttle. CM provided detailed list of options for RCT shuttle to transport to [facility] tomorrow, as well as resources for follow up.
[2022-01-18 10:08] LABS: HIV-1/2 Ag & Ab Screen Negative (Negative)
--- NOTE | 2022-01-24 22:30 | W.ED.GENAD ---
Discharge Plan Disposition Patient Disposition: HOME Condition: Stable Discharge Details Clinical Impression: Opiate addiction Primary Care Provider: Henrry Ragland ED Provider: Glo Ferguson Home Meds and New Rx's Prescriptions: Continued venlafaxine [Effexor XR] 75 MG capsule,extended release 24hr 75 mg PO DAILY Label Comments: 10/02/17-PT STATES CURRENT DOSE IS 150MG DAILY--TETO MEDINA omeprazole 40 mg capsule,delayed release(DR/EC) 40 mg PO DAILY Qty: 30 0RF acetaminophen [Tylenol Extra Strength] 500 mg tablet 500 mg PO Q6H PRNQty: 90 0RF acetaminophen 500 mg Tablet 1,000 mg PO Q6H PRN diphenhydramine HCl [Benadryl] 25 mg Capsule 50 mg PO DAILY Discharge Instructions Instructions: Buprenorphine (Into the mouth), Naloxone (Into the nose), Narcotic Use Disorder (ED) Additional Instructions: You have been started into the medication assisted withdrawal program. You are given your first dose of Suboxone here today. You are being sent home with dosing which you may use to continue your treatment tomorrow. Please not take any until tomorrow morning as you are at risk for overdose on this medication. Please go to [facility] tomorrow to continue establishing long-term care, there is information in the folders given to you on the bus schedule. Please abstain from other opiate use. rhythmic gymnastics coach will also be in touch with you to assist during this transitional time. An appointment has been made for you with your primary care next week for reevaluation, and for further evaluation of your elevated blood pressure. Please encourage water intake. Please return if you develop chest pain, shortness of breath, inability to hydrate or other new/worsening symptoms. Please use the Narcan as was instructed if you have any symptoms of overdose including somnolence, shortness of breath, confusion. Please instruct those around you on how to use this as well and keep it with you at all times. Referrals: Henrry Ragland [Primary Care Provider] - 01/26/22 8:30 am Discharge Data Discharge Date/Time-TO BE ENTERED AT DEPARTURE: 01/17/22 14:06 Medical Decision Making Patient is a pleasant 51-year-old female with past medical history significant for NSTEMI, GERD, pulmonary hypertension, opiate abuse, presenting today with chief complaint of opiate withdrawal.? Patient reports that she typically uses about 30 mg of fentanyl, which she snorts, daily.? States that she last used yesterday morning.? Patient reports that she is no longer getting high from this but rather she is using this to prevent herself from having any withdrawal symptoms.? Today she began having nausea, vomiting and has felt tremulous.? Patient is interested in beginning a medication assisted treatment plan. Smoke tobacco daily, smokes marijuana daily but no other ilicit drug use, no ETOH use. Denies SI/HI. On exam, patient appears uncomfortable, dry heaving and holding emesis bag. She appears dry. Fatigued. Shaky. lungs are clear, normal cardiac exam. Primarily concerned for withdrawal at this time. However, patient does have hx of NSTEMI, will obvtain baseline blood work to assess for cardiac strain associated with the withdrawal, electrolyte abnormality from the vomiting. Contacted PCP office, they have started MAT program and may be the most appropriate f/u. Patient is not able to transition to their program immediatly. will start with [facility] but may be able to transition to this in the future. They will contact the patient to ensure prompt f/u and get back in touch with the patient as she has not been seen by them recently. COWS [id number] Patient was evaluated by SBIRT provider, motorcoach operator.? She will continue to utilize the resources as well.? Labs reviewed.? No significant abnormality noted.? Her opiates were negative but is a patient with fentanyl and Versed last over 24 hours ago, not excised by this and continue to feel that moving forward with buprenorphine would be the appropriate management plan.? The atypical labs prior including HIV and hepatitis screenings have been ordered.? Patient and I had a lengthy discussion regarding risk/benefits as well as potential side effects associated with buprenorphine treatment.? She has been on this historically and states that she did tolerate this well and continues to want to pursue being clean.? Patient has signed consent form.? We will give first dose of buprenorphine now.? Patient I also discussed the fact that she has elevated blood pressure.? She reports that she has had elevated blood pressure historically.? She will be able to discuss this further with her primary care at upcoming visit.? No evidence of end organ damage from hypertension at this time. Patient tolerated this well. She spoke with care management, will be able to utilize public transport to be able to get to [facility]. Patient has been on this plan before, while not successful at that time, did tolerate it well. Sounds very excited to be starting on this currently. She was given strict usage instruction for the medication, was given strict return precautions. All of her quesitons and concerns were addressed, she is in agreemetn with this plan. HPI General Date/Time Provider Initiated Documentation: 01/17/22 10:43. Limitations to Documentation: no limitations. Information obtained by: patient, EMS and RN notes reviewed. History of Present Illness 51 year old F presents to the emergency department with the chief complaint of Fentanyl withdrawal , described as severe and similar to prior episodes, with intensity rated at 10. Quality is described as other (diffuse generalized body aches), Patient started experiencing this day(s) (last dose yesterday) and it has been constant. No relieving factors improve symptom(s), No exacerbating factors reported . Patient notes diaphoresis, loss of appetite, malaise and nausea/vomiting; denies chest pain, cough, fever/chills, rash and shortness of breath. Patient did receive the following treatments prior to arrival, none Related Data Home Medications Medication Instructions Recorded Confirmed venlafaxine 75 mg capsule,extended 75 mg PO DAILY 01/30/17 10/23/21 release 24 hr (Effexor XR) omeprazole 40 mg capsule,delayed 40 mg PO DAILY #30 caps 02/10/18 10/23/21 release acetaminophen 500 mg tablet 1,000 mg PO Q6H PRN 02/09/21 10/23/21 acetaminophen 500 mg tablet 500 mg PO Q6H PRN #90 tabs 02/09/21 10/21/21 (Tylenol Extra Strength) diphenhydramine HCl 25 mg capsule 50 mg PO DAILY 01/17/22 01/17/22 (Benadryl) Previous Rx's Medication Instructions Recorded omeprazole 40 mg capsule,delayed 40 mg PO DAILY #30 caps 02/10/18 release acetaminophen 500 mg tablet 500 mg PO Q6H PRN #90 tabs 02/09/21 (Tylenol Extra Strength) Allergies Allergy/AdvReac Type Severity Reaction Status Date / Time No Known Allergies Allergy Verified 01/17/22 10:20 General Stated Complaint: DrugWithdr/MAT ANGELITA: 3 Review of Systems Constitutional Constitutional: Reports as per HPI, Denies fever(s) and Denies headache(s) ENT Ears, Nose, Mouth, and Throat: Denies headache(s) Cardiovascular Cardiovascular: Reports as per HPI, Denies chest pain and Denies dyspnea Respiratory Respiratory: Reports as per HPI, Denies cough and Denies dyspnea Gastrointestinal Gastrointestinal: Reports as per HPI Musculoskeletal Musculoskeletal: Reports as per HPI and Denies back pain Integumentary/Breasts Skin/Breast: Reports as per HPI and Denies rash Neurologic Neurologic: Reports as per HPI and Denies headache(s) PFSH All Active Problems (Updated 01/17/22 @ 13:40 by CLEMENTE Ho) Opiate addiction (Acute) Non-ST elevation NM (NSTEMI) (Acute) Syncope (Acute) Surgical wound dehiscence (Acute) Postoperative wound cellulitis (Acute) Elevated troponin (Acute) Painful orthopaedic hardware (Acute) s/p removal of helical blade from TFNA DOS: 02/09/2021 Preoperative cardiovascular examination (Acute) Diverticulosis (Acute) Colon polyp (Acute) GERD (gastroesophageal reflux disease) (Chronic) Trochanteric bursitis, left hip (Acute 10/02/17) Pulmonary hypertension (Acute) pt. denies this T12 compression fracture (Chronic) Acute electrocardiogram changes (Acute) Tobacco abuse (Chronic) Muscle spasm (Acute) Radiculopathy (Acute) Chest pain (Acute) Pt. states this is not accurate, pt. states she had pain in side near her ribs, pt. states she was told it was a muscle spasm Medical History Anxiety Bilateral calcaneal fractures Closed left hip fracture Depression History of ETOH abuse IUD surveillance (01/13/15) Menorrhagia Status post fracture of femur Surgical History section x 3 H/O colonoscopy (~05/2019) Hyperplastic polyp History of repair of hip fracture left femur, heel Ligation of fallopian tube 1989 Family History Mother Diabetes Osteoporosis Hyperlipidemia Social History Smoking/Tobacco Use Status: Current every day Tobacco Type: cigarettes Smoking packs per day: 1 Smoking cigarettes per day: 20.0 Years smoked: 40 Smoking pack-years: 40.00 Smoking risk assessment performed?: Yes Alcohol Intake: current Alcohol Intake frequency: a few times a month Alcohol type: beer Drug use: Daily Substance use type: marijuana and opiates Details: History heroin, cocaine, crack, Kaylene, meth Last use of any of these meds was yesterday am (Fentanyl tab) Denies IV drug use Current gender identity: female Seatbelt use: always Do you feel safe at home: Yes Do you feel safe in your relationship?: Yes Female Reproductive History Menstrual control method: progestin IUCD, permanent sterilization and other History History 5 Para 3 Hx # Term Pregnancies Multiple births Hx # Pregnancies Ectopic pregnancies AB induced Hx Number of Living Children AB spontaneous Exam Const General: cooperative, comfortable, no acute distress, well developed, anxious, disheveled and ill appearing acutely Nutritional Appearance: average body habitus and well nourished Orientation: alert and awake HENMT Head: normal to inspection Mouth: moist mucous membranes Eyes Pupils: PERRL and normal by confrontation Resp Effort & Inspection: normal respiratory effort, able to speak in complete sentences and no respiratory distress Auscultation: clear to auscultation bilaterally, no rales, no rhonchi and no wheezes Cardio Rate: regular rate Rhythm: regular rhythm Heart Sounds: S1 normal and S2 normal GI Inspection: normal to inspection Palpation: soft, no hepatosplenomegaly and nontender Back/Spine/Pelvis Back: no CVA tenderness Skin General skin exam: no rashes or lesions noted Trauma: no lacerations or abrasions Neuro General: patient alert and patient awake Cognition: normal cognition Speech: speech normal Gait: normal gait Motor: muscle tone normal throughout and tremor Psych Appearance: grossly normal and well kempt Mental Status: mental status grossly normal Speech and Movement: agitated and restless Mood: anxious mood Affect: anxious affect Attitude: guarded Thought Process: normal Thought Content: normal Course Vital Signs Vital signs: Vital Signs Temperature 37.1 C 01/17/22 10:17 Pulse 76 01/17/22 10:17 Respiratory Rate 18 01/17/22 10:17 Blood Pressure 176/97 H 01/17/22 10:17 Pulse Oximetry 100 01/17/22 10:17 Temperature 37.1 C 01/17/22 10:17 Temperature Source Temporal Artery Scan 01/17/22 10:17 Pulse 72 01/17/22 11:46 Pulse 85 01/17/22 11:46 Respiratory Rate 26 H 01/17/22 11:46 Respiratory Effort Non-Labored 01/17/22 10:32 Respiratory Pattern Normal 01/17/22 10:32 Blood Pressure 183/99 H 01/17/22 11:46 Blood Pressure Mean 117 01/17/22 11:46 Blood Pressure Position Sitting 01/17/22 10:17 Pulse Oximetry 100 01/17/22 10:17 Oxygen Delivery Method Room Air 01/17/22 10:17 Oxygen Flow Rate 0 01/17/22 10:17 Pain Level 5 01/17/22 10:17 Lab/Test Results Lab/Test Results: Laboratory Tests Range/Units 01/17/22 01/17/22 01/17/22 10:30 10:30 10:30 WBC (4.4-10.8) 10^3/uL RBC (3.93-5.22) 10^6/uL Hgb (11.2-15.7) g/dL Hct (36.0-46.0) % MCV (80-95) fL MCH (27.0-33.0) pg MCHC (32.0-36.0) % RDW (11.7-14.6) % Plt Count (130-400) 10^3/uL MPV (8.0-11.0) fL Immature Gran % Neutrophils % Lymphocytes % Monocytes % Eosinophils % Basophils % Nucleated RBC % (0.0-0.3) % Absolute Neutrophils (1.2-6.7) 10^3/uL Absolute Lymphocytes (1.2-3.4) 10^3/uL Absolute Monocytes (0.1-0.8) 10^3/uL Absolute Eosinophils (0.0-0.7) 10^3/uL Absolute Basophils (0.0-0.2) 10^3/uL Sodium (136-145) mmol/L 138 Potassium (3.5-5.1) mmol/L 4.0 Chloride (98-107) mmol/L 104 Carbon Dioxide (21.0-32.0) mmol/L 24.2 Anion Gap (3-11) mmol/L 9.8 BUN (7-18) mg/dL 20 H Creatinine (0.55-1.02) mg/dL 0.9 Est GFR (CKD-EPI 2020) (mL/min/1.73m2) 76.44 Glucose (74-106) mg/dL 125 H Calcium (8.5-10.1) mg/dL 9.6 Magnesium (1.8-2.4) mg/dL 1.9 Total Bilirubin (0.2-1.0) mg/dL 0.2 0.2 Conjugated Bilirubin (0.0-0.2) mg/dL 0.1 AST (15-37) U/L 30 30 ALT (14-59) U/L 41 40 Alkaline Phosphatase (46-116) U/L 111 110 Troponin I (<or=60) ng/L < 50 Total Protein (6.4-8.2) g/dL 8.2 8.3 H Albumin (3.4-5.0) g/dL 4.2 4.2 Urine Opiates Screen (Negative) Urine Methadone Screen (Negative) Ur Barbiturates Screen (Negative) Ur Tricyclics Screen (Negative) Ur Amphetamines Screen (Negative) U Benzodiazepines Scrn (Negative) Urine Cocaine Screen (Negative) Ur THC Screen (Negative) Ethyl Alcohol (<10) mg/dL < 3.0 HIV 1&2 Ag/Ab, 4th Gen (Negative) Range/Units 01/17/22 01/17/22 01/17/22 10:30 10:48 12:25 WBC (4.4-10.8) 10^3/uL 9.20 RBC (3.93-5.22) 10^6/uL 4.87 Hgb (11.2-15.7) g/dL 14.5 Hct (36.0-46.0) % 43.3 MCV (80-95) fL 89 MCH (27.0-33.0) pg 29.8 MCHC (32.0-36.0) % 33.5 RDW (11.7-14.6) % 13.2 Plt Count (130-400) 10^3/uL 284 MPV (8.0-11.0) fL 9.4 Immature Gran % 0.2 Neutrophils % 73.3 Lymphocytes % 18.0 Monocytes % 5.5 Eosinophils % 2.3 Basophils % 0.7 Nucleated RBC % (0.0-0.3) % 0.0 Absolute Neutrophils (1.2-6.7) 10^3/uL 6.74 H Absolute Lymphocytes (1.2-3.4) 10^3/uL 1.66 Absolute Monocytes (0.1-0.8) 10^3/uL 0.51 Absolute Eosinophils (0.0-0.7) 10^3/uL 0.21 Absolute Basophils (0.0-0.2) 10^3/uL 0.06 Sodium (136-145) mmol/L Potassium (3.5-5.1) mmol/L Chloride (98-107) mmol/L Carbon Dioxide (21.0-32.0) mmol/L Anion Gap (3-11) mmol/L BUN (7-18) mg/dL Creatinine (0.55-1.02) mg/dL Est GFR (CKD-EPI 2020) (mL/min/1.73m2) Glucose (74-106) mg/dL Calcium (8.5-10.1) mg/dL Magnesium (1.8-2.4) mg/dL Total Bilirubin (0.2-1.0) mg/dL Conjugated Bilirubin (0.0-0.2) mg/dL AST (15-37) U/L ALT (14-59) U/L Alkaline Phosphatase (46-116) U/L Troponin I (<or=60) ng/L Total Protein (6.4-8.2) g/dL Albumin (3.4-5.0) g/dL Urine Opiates Screen (Negative) Negative Urine Methadone Screen (Negative) Negative Ur Barbiturates Screen (Negative) Negative Ur Tricyclics Screen (Negative) Negative Ur Amphetamines Screen (Negative) Negative U Benzodiazepines Scrn (Negative) Negative Urine Cocaine Screen (Negative) Negative Ur THC Screen (Negative) Positive A Ethyl Alcohol (<10) mg/dL HIV 1&2 Ag/Ab, 4th Gen (Negative) Negative
== END 2022-01-17 14:06 | disposition home or self-care (01) ==
PROVIDERS: Emergency Provider Physician Assistant; PCP Physician Assistant
DX: F11.20 Opioid dependence, uncomplicated (principal); I25.2 Old myocardial infarction; F17.210 Nicotine dependence, cigarettes, uncomplicated
CPT/HCPCS: 36415; 80053; 80076; 80307; 87389; 93005; 96361; 96374; 99284; 80320; 83735; 84484; 85025; 93010; J3490

== ENCOUNTER 2024-08-09 13:00 | Emergency (ER) | payer MEDICAID, SELFPAY ==
[2024-08-09 13:12] VITALS: BP 127/79; PULSE 67; RESP 18; TEMP 36.3; O2SAT 99
--- NOTE | 2024-08-09 13:47 | DI.RAD_ITS ---
Exam(s) XR WRIST RT COMPLETE EXAM: XR WRIST RT COMPLETE CLINICAL HISTORY: pain, fall. TECHNIQUE: 2D digital imaging was performed. COMPARISON: No exams were available for comparison FINDINGS: 3 views There is a comminuted but nondisplaced fracture of the distal radius which exhibits intra-articular e xtension. No significant ulnar variance and distal ulna and ulnar styloid are intact. Scaphoid and scapholunate distance are normal. Carpal row bones appear unremarkable. IMPRESSION: Distal radius fracture as described above. Fracture extends to the articular surface of the radiocar pal joint. DATA REPOSITORY: RADIATION DOSE DELIVERED:
--- NOTE | 2024-08-09 13:53 | W.ED.GENAD ---
Discharge Plan Disposition Patient Disposition: Home Condition: Stable Discharge Details Clinical Impression: Closed fracture of right distal radius Primary Care Provider: Henrry Ragland ED Provider: Rey Herrmann Home Meds and New Rx's Prescriptions: No Action acetaminophen [Tylenol Extra Strength] 500 mg tablet 500 mg PO Q6H PRNQty: 90 0RF acetaminophen 500 mg Tablet 1,000 mg PO Q6H PRN diphenhydramine HCl [Benadryl] 25 mg Capsule 50 mg PO DAILY PRN Patient Comments: Takes it seasonally Discharge Instructions Instructions: Radius Fracture, Oxycodone Additional Instructions: You were seen in the emergency department for the fracture of your right distal radius, the fracture does extend to the intra-articular joint space between the hand and wrist, this is sometimes surgical in need, regardless, in the meantime you need to remain in the splint that we applied here and follow-up with orthopedics, have contacted them they have reviewed your imaging. Please rest, ice, compress and elevate the area often, please use therapeutic dosing of Tylenol (acetamenophen) & Advil (ibuprofen) in an alternating fashion as follows: Take 1000mg of Tylenol every 6 hours without missing doses- that is 4 times per day. Custodial in between the Tylenol dosings, take 400-600mg of Advil also on a 6 hour schedule, that is also 4 times per day. The daily maximum dosing of Tylenol is 4000mg, and the daily maximum dosing of Advil is 2400mg. This is safe to do for weeks. Please note that some common cold medications & prescription pain medications may contain acetamenophen and you need to read OTC drug labels and factor that in to maximum daily dosings. Referrals: Henrry Ragland [Primary Care Provider] - Discharge Data Discharge Date/Time-TO BE ENTERED AT DEPARTURE: 08/09/24 14:37 HPI General Date/Time Provider Initiated Documentation: 08/09/24 13:23. HPI Narrative: 54 year-old female presents to ED today by POV/ambulating with a chief complaint of fall while roller skating- injuring her R wrist, is R-hand dominant with onset just prior to arrival. Quality described as severe swelling and bruising, no radiation to complete numbness to hand, proximal arm pain, headstrike, LOC, other trauma. Severity is described as severe. Palliating factors include ice pack with some relief. Provoking factors include nothing specific. Patient not anticoagulated. Related Data Home Medications ?Medication ?Instructions ?Recorded ?Confirmed acetaminophen 500 mg tablet 1,000 mg PO Q6H PRN 02/09/21 08/09/24 acetaminophen 500 mg tablet 500 mg PO Q6H PRN #90 tabs 02/09/21 08/09/24 (Tylenol Extra Strength) diphenhydramine HCl 25 mg capsule 50 mg PO DAILY PRN 01/17/22 08/09/24 (Benadryl) Previous Rx's ?Medication ?Instructions ?Recorded acetaminophen 500 mg tablet 500 mg PO Q6H PRN #90 tabs 02/09/21 (Tylenol Extra Strength) Allergies Allergy/AdvReac Type Severity Reaction Status Date / Time No Known Allergies Allergy Verified 08/09/24 13:52 General Stated Complaint: Orthopedic ANGELITA: 4 Review of Systems All systems reviewed & are unremarkable except as noted in HPI and below Exam Narrative Exam Narrative: GENERAL APPEARANCE: Well-nourished, non-toxic, awake and alert, atraumatic, no acute distress. SKIN: Warm, pink, dry, intact, without rashes/lesions/ulcerations. HEAD: Normocephalic, atraumatic, normal hair distribution for gender/age. EYES: Normal conjunctiva, no exudates on lids/lashes. ENT: Nares patent, no circumoral cyanosis, no facial swelling NECK: Supple, trachea midline, painless cervical ROM. LUNGS/CHEST: Non-labored respirations, normal A/P diameter, symmetrical expansion, no chest wall deformity HEART (CV/PV): Regular rate, R radial pulse 2+, no peripheral edema, no JVD. ABDOMEN: Soft, non-distended, no guarding. MSK: Normal ROM, no swelling/deformity to bilateral LEs/ L UE, moving all extremities without weakness, no cyanosis, spine midline without tenderness, normal curvature R UE: Swelling and ecchymosis to the right wrist with crepitus, sensation and circulation intact distally in the right hand, no anatomical snuffbox tenderness, no proximal forearm injury, right radial pulse 2+ NEURO: Mental Status AAOx4 - alert to person, place, time, events No facial droop, no forehead involvement. Motor: No focal weakness - strength 5/5 in L UE/ bilat LEs Sensory: sensation intact to light touch globally. Gait normal: patient ambulated without ataxia into ED room. PSYCH: euthymic, cooperative, pleasant, appropriate speech Course Vital Signs Vital signs: Vital Signs Temperature 36.3 C L 08/09/24 13:12 Pulse 67 08/09/24 13:12 Respiratory Rate 18 08/09/24 13:12 Blood Pressure 127/79 08/09/24 13:12 Pulse Oximetry 99 08/09/24 13:12 Temperature 36.3 C L 08/09/24 13:12 Temperature Source Tympanic 08/09/24 13:12 Pulse 67 08/09/24 13:12 Respiratory Rate 18 08/09/24 13:12 Blood Pressure 127/79 08/09/24 13:12 Pulse Oximetry 99 08/09/24 13:12 Oxygen Delivery Method Room Air 08/09/24 13:12 Oxygen Flow Rate 0 08/09/24 13:12 Pain Level 8 08/09/24 13:50 Medical Decision Making This dictation utilizes [id number] dictation software and may contain unedited grammatical errors. 54 year-old female presents to ED today by POV/ambulating with a chief complaint of fall while roller skating- injuring her R wrist, is R-hand dominant with onset just prior to arrival. Quality described as severe swelling and bruising, no radiation to complete numbness to hand, proximal arm pain, headstrike, LOC, other trauma. Severity is described as severe. Palliating factors include ice pack with some relief. Provoking factors include nothing specific. Patients' medical history: History of NSTEMI, syncope, pulmonary hypertension, GERD, tobacco use. Family and social history: Noncontributory. Pertinent exam findings / vital signs include swelling and deformity to right wrist with crepitus, ecchymosis, right radial pulse 2+, brisk capillary refill in the fingers, sensation intact, no proximal arm swelling or deformity. Differential / pathologies of concern include fracture likely. Diagnostic studies of: - XR R wrist-shows fracture of distal radius with intra-articular involvement. Interventions of: - Volar splint as orthopedics recommended, follow-up in office. Sling provided ED Course/Assessment/Plan: 54-year-old female was rollerskating and suffered a right wrist injury from falling on outstretched hand, has a distal radius fracture with intra-articular involvement, I did discuss with Dr. [place] recommends volar splint and sling and he will follow-up in office with surgery likely early in the week, counseled on RICE therapy and therapeutic dosing of Tylenol and ibuprofen, strict return criteria for any signs of complete neurovascular compromise to the right hand. Findings not consistent with neurovascular compromise, proximal injury. Disposition of closed fracture of right distal radius. Patient verbalized understanding of the plan and return to ED criteria and engaged in shared decision making. Medical Records Medical records reviewed: Yes I reviewed the patient's medical records. Imaging Data Radiologic Study: Attestation: I personally reviewed and interpreted this imaging study as follows: Imaging: X-Ray Radiologist's impression: EXAM: XR WRIST RT COMPLETE CLINICAL HISTORY: pain, fall. TECHNIQUE: 2D digital imaging was performed. COMPARISON: No exams were available for comparison FINDINGS: 3 views There is a comminuted but nondisplaced fracture of the distal radius which exhibits intra-articular extension. No significant ulnar variance and distal ulna and ulnar styloid are intact. Scaphoid and scapholunate distance are normal. Carpal row bones appear unremarkable. IMPRESSION: Distal radius fracture as described above. Fracture extends to the articular surface of the radiocarpal joint. Quality:SDOH Health Related Social Needs: No Data to Display PFSH All Active Problems (Updated 08/09/24 @ 14:05 by CLEMENTE Arenas) Closed fracture of right distal radius (Acute) Non-ST elevation [place] (NSTEMI) (Acute) Syncope (Acute) Surgical wound dehiscence (Acute) Postoperative wound cellulitis (Acute) Elevated troponin (Acute) Painful orthopaedic hardware (Acute) s/p removal of helical blade from [facility] DOS: 02/09/2021 Preoperative cardiovascular examination (Acute) Diverticulosis (Acute) Colon polyp (Acute) GERD (gastroesophageal reflux disease) (Chronic) Trochanteric bursitis, left hip (Acute 10/02/17) Pulmonary hypertension (Acute) pt. denies this T12 compression fracture (Chronic) Acute electrocardiogram changes (Acute) Tobacco abuse (Chronic) Muscle spasm (Acute) Radiculopathy (Acute) Chest pain (Acute) Pt. states this is not accurate, pt. states she had pain in side near her ribs, pt. states she was told it was a muscle spasm Medical History Anxiety Bilateral calcaneal fractures Closed left hip fracture Depression History of ETOH abuse IUD surveillance (01/13/15) Menorrhagia Status post fracture of femur Surgical History section x 3 H/O colonoscopy (~05/2019) Hyperplastic polyp History of repair of hip fracture left femur, heel Ligation of fallopian tube 1989 Family History Mother Diabetes Osteoporosis Hyperlipidemia Social History Smoking/Tobacco Use Status: Current every day Tobacco Type: cigarettes Smoking packs per day: 1 Smoking cigarettes per day: 20.0 Years smoked: 40 Smoking pack-years: 40.00 Smoking risk assessment performed?: Yes Alcohol Intake: current Alcohol Intake frequency: a few times a month Alcohol type: beer Drug use: Daily Substance use type: marijuana and opiates Details: History heroin, cocaine, crack, Kaylene, meth Last use of any of these meds was yesterday am (Fentanyl tab) Denies IV drug use Current gender identity: female Seatbelt use: always Do you feel safe at home: Yes Do you feel safe in your relationship?: Yes Female Reproductive History Menstrual control method: progestin IUCD, permanent sterilization and other History History 5 Para 3 Hx # Term Pregnancies Multiple births Hx # Pregnancies Ectopic pregnancies AB induced Hx Number of Living Children AB spontaneous PAWSS Have you Been Recently Intoxicated or Drunk Within the Last 30 days?: No Have you Ever Experienced Previous Episodes of Alcohol Withdrawal?: No Have you ever Experienced Withdrawal Seizures?: No Have you ever Experienced Delirium Tremens(DT)s?: No Have you ever undergone Alcohol Rehabilitation Treatment (i.e, inpt ot outpatient treatment programs)?: No Have you ever Experienced Blackouts?: No Have you ever Combined Alcohol with other Downers within the last 90 days?: No Have you ever Combined Alcohol with any other Substance of Abuse during the last 90 days?: No Result: 0
--- NOTE | 2024-08-12 17:45 | NUR.NOTE ---
Access chart to see if patient has a follow up appt with Ortho. She is going to be seen 08/21. Nursing Note:
== END 2024-08-09 14:37 | disposition home or self-care (01) ==
PROVIDERS: Emergency Provider Physician Assistant; PCP Physician Assistant
DX: S52.571A Other intraarticular fracture of lower end of right radius, initial encounter for closed fracture (principal); F17.210 Nicotine dependence, cigarettes, uncomplicated; W18.39XA Other fall on same level, initial encounter; Y93.51 Activity, roller skating (inline) and skateboarding; Y92.488 Other paved roadways as the place of occurrence of the external cause
CPT/HCPCS: 99283; 73110

== ENCOUNTER 2024-08-14 13:40 | Outpatient (CLI) | payer MEDICAID, SELFPAY ==
--- NOTE | 2024-08-14 13:00 | DI.RAD_ITS ---
Exam(s) XR WRIST RT LIMITED EXAM: XR WRIST RT LIMITED CLINICAL HISTORY: evaluate fracture. TECHNIQUE: 2D digital imaging was performed of the right wrist. Two views were obtained. PA and la teral views were obtained. COMPARISON: CR XR WRIST RT COMPLETE from 08/09/2024 FINDINGS: The patient's wrist is in a cast. BONES: There has been no change in alignment of the intra-articular and mildly impacted fracture invo lving the distal right radius. No bony destructive lesion is seen. JOINTS: The carpal bones are normally aligned. SOFT TISSUE: Normal. IMPRESSION: Stable alignment of the distal right radial fracture. DATA REPOSITORY: RADIATION DOSE DELIVERED:
== END 2024-08-14 13:41 | disposition home or self-care (01) ==
LOC: DIORS 13:40
PROVIDERS: PCP Physician Assistant; Visit Provider Student in an Organized Health Care Education/Training Program
DX: S52.501A Unspecified fracture of the lower end of right radius, initial encounter for closed fracture; S52.601A Unspecified fracture of lower end of right ulna, initial encounter for closed fracture
CPT/HCPCS: 73100

== ENCOUNTER 2024-08-21 14:04 | Outpatient (CLI) | payer MEDICAID, SELFPAY ==
--- NOTE | 2024-08-21 11:15 | DI.RAD_ITS ---
Exam(s) XR WRIST RT LIMITED EXAM: XR WRIST RT LIMITED INDICATION: F/U FRACTURE. COMPARISON: CR XR WRIST RT COMPLETE from 08/09/2024 CR XR WRIST RT LIMITED from 08/14/2024 TECHNIQUE: 2D digital imaging was performed. Two views. FINDINGS: Stable alignment of comminuted intra-articular fracture of the distal radius. No new abnormalities. DATA REPOSITORY: RADIATION DOSE DELIVERED:
== END 2024-08-21 14:05 | disposition home or self-care (01) ==
LOC: DIORS 14:04
PROVIDERS: PCP Physician Assistant; Visit Provider Student in an Organized Health Care Education/Training Program
DX: S52.501A Unspecified fracture of the lower end of right radius, initial encounter for closed fracture (principal)
CPT/HCPCS: 73100

== ENCOUNTER 2024-09-18 14:08 | Outpatient (CLI) | payer MEDICAID, SELFPAY ==
--- NOTE | 2024-09-18 10:00 | DI.RAD_ITS ---
Exam(s) XR WRIST RT LIMITED EXAM: XR WRIST RT LIMITED INDICATION: F/U FRACTURE. COMPARISON: CR XR WRIST RT LIMITED from 08/21/2024 TECHNIQUE: 2D digital imaging was performed. Two views. FINDINGS: Stable alignment of the comminuted intra-articular fracture of the distal radius. Some interval call us formation. No new abnormalities. DATA REPOSITORY: RADIATION DOSE DELIVERED:
== END 2024-09-18 14:09 | disposition home or self-care (01) ==
LOC: DIORS 14:08
PROVIDERS: PCP Physician Assistant; Referring Provider Physician Assistant; Visit Provider Student in an Organized Health Care Education/Training Program
DX: S52.501A Unspecified fracture of the lower end of right radius, initial encounter for closed fracture (principal)
CPT/HCPCS: 73100

== ENCOUNTER 2024-11-02 02:08 | Emergency (ER) | payer MEDICAID, SELFPAY ==
[2024-11-02 01:37] VITALS: BP 140/127; PULSE 106; RESP 18; TEMP 36.8; O2SAT 96
[2024-11-02] MEDS: Acetaminophen 500 MG TAB 1000 MG PO (02:01)
[2024-11-02] MEDS: Ketorolac 15 MG/ML VIAL IM (02:02)
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
--- NOTE | 2024-11-02 02:57 | NUR.NOTE ---
PT requested to talk to umbrella. umbrella contacted and they is arranging for PT to stay at a motel for the night. Nursing Note:
[2024-11-02 03:58] VITALS: BP 127/80; PULSE 93; RESP 18; O2SAT 96
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
== END 2024-11-02 08:13 | disposition home or self-care (01) ==
PROVIDERS: Emergency Provider Student in an Organized Health Care Education/Training Program; PCP Physician Assistant
DX: S63.501A Unspecified sprain of right wrist, initial encounter (principal); X58.XXXA Exposure to other specified factors, initial encounter
CPT/HCPCS: 99283; 99284; 96372; 73110; J1885

== ENCOUNTER 2024-11-12 11:10 | Outpatient (CLI) | payer MEDICAID, SELFPAY ==
--- NOTE | 2024-11-12 10:39 | DI.RAD_ITS ---
Exam(s) XR WRIST RT LIMITED EXAM: XR WRIST RT LIMITED CLINICAL HISTORY: F/U R DISTAL RAD FX. TECHNIQUE: 2D digital imaging was performed of the right wrist. Three views were obtained. PA and lateral views were obtained. COMPARISON: CR XR WRIST RT COMPLETE from 08/09/2024 CR,XR XR WRIST RT COMPLETE from 11/02/2024 FINDINGS: BONES: There has been no change in alignment of the fracture involving the distal right radius. There has been significant healing which appears stable compared to the prior examination. No new fracture is seen. No bony destructive lesion is seen. JOINTS: The carpal bones are normally aligned. SOFT TISSUE: Normal. IMPRESSION: Stable appearance of the previously seen healing right distal radial fracture. DATA REPOSITORY: RADIATION DOSE DELIVERED:
== END 2024-11-12 11:11 | disposition home or self-care (01) ==
LOC: DIORS 11:11
PROVIDERS: PCP Physician Assistant; Visit Provider Student in an Organized Health Care Education/Training Program
DX: S52.501A Unspecified fracture of the lower end of right radius, initial encounter for closed fracture (principal)
CPT/HCPCS: 73100

== ENCOUNTER 2024-12-04 14:47 | Outpatient (REF) | payer MEDICAID, SELFPAY ==
[2024-12-04 15:31] LABS: HCT 39.7 % (36.0-46.0); HGB 12.8 g/dL (11.2-15.7); MCH 28.7 pg (27.0-33.0); MCHC 32.2 % (32.0-36.0); MCV 89 fL (80-95); MPV 10.8 fL (8.0-11.0); Platelet Count 297 10^3/uL (130-400); RBC 4.46 10^6/uL (3.93-5.22); RDW 14.1 % (11.7-14.6); RDW-SD 46.1 fL; WBC 11.40 10^3/uL (4.4-10.8)
[2024-12-04 16:08] LABS: Hemoglobin A1C 5.5 % (<5.7)
[2024-12-04 16:27] LABS: ALT 24 U/L (14-59); AST 18 U/L (15-37); Albumin 4.3 g/dL (3.4-5.0); Alkaline Phosphatase 103 U/L (46-116); Anion Gap 9.7 mmol/L (3-11); BUN 20 mg/dL (7-18); Bilirubin, Total 0.4 mg/dL (0.2-1.0); CO2 24.3 mmol/L (21.0-32.0); Calcium 9.7 mg/dL (8.5-10.1); Calculated LDL 99 mg/dL (<100); Chloride 103 mmol/L (98-107); Cholesterol 198 mg/dL (<200); Estimated GFR 86.42 (mL/min/1.73m2); Glucose 92 mg/dL (74-106); HDL Cholesterol 54 mg/dL (>or=50); Potassium 4.7 mmol/L (3.5-5.1); Sodium 137 mmol/L (136-145); Total Protein 7.5 g/dL (6.4-8.2); Triglyceride 226 mg/dL (<150)
== END 2024-12-04 14:48 | disposition home or self-care (01) ==
LOC: NCHCN 14:47
PROVIDERS: PCP Physician Assistant; Visit Provider Physician Assistant
DX: E78.5 Hyperlipidemia, unspecified (principal); Z13.1 Encounter for screening for diabetes mellitus
CPT/HCPCS: 80053; 80061; 85027; 83036